=== PATIENT | female | born 1935 | race Caucasian/White ===

== ENCOUNTER 2016-10-03 21:47 | Inpatient (IN) | payer MEDICARE ==
--- NOTE | 2016-10-03 22:36 | ER Document Report ---
ED General - General Chief Complaint: Leg Pain Stated Complaint: LEG PAIN Notes: Patient is a 81-year-old female presents with complaint of having pain in her right leg and behind her right knee. Patient says the pain started today and gradually worsened throughout the day. She is on a slight pain in her left leg. Almost all her pain is in her right leg. She then started become confused and altered at home. She was sweating and diaphoretic and looked unwell according to the daughter. Ambulance was called. When animals arrived she had a temp of 101.9. The daughter had given her Tylenol proximal main hour prior. She was also hypoxic upon their arrival. Patient currently is feeling improved and more awake and alert. She still has a pain behind her right leg. She has no previous history of DVT. No history of PE. She's had no recent cough or congestion. No recent dysuria. No redness or swelling to her extremities. No social or back pain. No abdominal pain. She does have a previous history of ovarian cancer. This was removed with surgery in the . 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 She did have a hernia surgery in 2016. She does have a history of rheumatoid arthritis and is on plaquenil and on prednisone. - Related Data Allergies/Adverse Reactions: cephalexin Allergy (Verified 10/03/16 22:23) fenofibrate [From Tricor] Allergy (Verified 10/03/16 22:23) indomethacin [From Indocin] Allergy (Verified 10/03/16 22:23) Vomiting oxycodone [From Percocet] Allergy (Verified 10/03/16 22:23) Hallucinations Penicillins Allergy (Verified 10/03/16 22:23) simvastatin [From Zocor] Allergy (Verified 10/03/16 22:23) tramadol [From Ultram] Allergy (Verified 10/03/16 22:23) Vomiting acetaminophen [From Percocet] Adverse Reaction (Verified 10/04/16 06:25) Hallucinations Home Medications: Current Home Medications Allopurinol [Zyloprim 300 mg Tablet] 300 mg PO DAILY 10/04/16 [History] Aspirin [Aspirin 81 mg Chewable Tablet] 81 mg PO DAILY 10/04/16 [History] Cholecalciferol (Vitamin D3) [Vitamin D3 1000 unit Chewable Tablet] 1 tab PO DAILY 10/04/16 [History] Gemfibrozil [Lopid 600 mg Tablet] 600 mg PO BID 10/04/16 [History] Hydroxychloroquine Sulfate [Plaquenil 200 mg Tablet] 200 mg PO DAILY 10/04/16 [ History] Magnesium Oxide [Mag-Ox 400 mg Tablet] 400 mg PO DAILY 10/04/16 [History] Omeprazole 20 mg PO DAILY 10/04/16 [History] Prednisone 10 mg PO DAILY 10/04/16 [History] Pregabalin [Lyrica 75 mg Capsule] 75 mg PO BID 10/04/16 [History] Past Medical History - Social History Smoking Status: Never Smoker Frequency of alcohol use: None Drug Abuse: None Family History: Reviewed & Not Pertinent - Past Medical History Cardiac Medical History: Reports: Hx Hypertension Musculoskeltal Medical History: Reports Hx Arthritis Past Surgical History: Reports: Hx Hysterectomy, Hx Tonsillectomy Review of Systems - Review of Systems Notes: My Normal Review Basic REVIEW OF SYSTEMS: CONSTITUTIONAL : Fever EENT: Denies eye, ear, throat, or mouth pain or symptoms. Denies nasal or sinus congestion. CARDIOVASCULAR: Denies chest pain. RESPIRATORY: Denies cough, cold, or chest congestion. Denies shortness of breath, difficulty breathing, or wheezing. GASTROINTESTINAL: Denies abdominal pain. Denies nausea, vomiting, or diarrhea. Denies constipation. Last BM: GENITOURINARY: Denies difficulty urinating, painful urination, burning, frequency, or blood in urine. MUSCULOSKELETAL: Right leg pain SKIN: Denies rash or skin lesions. NEUROLOGICAL: Denies altered mental status or loss of consciousness. Denies headache. Denies weakness or paralysis or loss of use of either side. Denies problems with gait or speech. Denies sensory or motor loss. ALL OTHER SYSTEMS REVIEWED AND NEGATIVE. Physical Exam - Vital signs Vitals: Temp Pulse Resp BP Pulse Ox 99.4 F 103 H 18 153/90 H 98 10/03/16 21:58 10/03/16 21:58 10/03/16 21:58 10/03/16 21:58 10/03/16 21:58 - Notes Notes: General Appearance: Well nourished, alert, cooperative, no acute distress, no obvious discomfort. Vitals: reviewed, See vital signs table. Head: no swelling or tenderness to the head Eyes: PERRL, EOMI, Conjuctiva clear Mouth: No decreasd moisture Throat: No tonsillar inflammation, No airway obstruction, No lymphadenopathy Neck: Supple, no neck tenderness, No thyromegaly Lungs: No wheezing, No rales, No rhonci, No accessory muscle use, good air exchange bilaterally. Heart: Normal rate, Regular rythm, No murmur, no rub Abdomen: Normal BS, soft, No rigidity, No abdominal tenderness, No guarding, no rebound, no abdominal masses, no organomegaly. Scars on abdomen. Extremities: strength 5/5 in all extremities, good pulses in all extremities, pinpoint area of tenderness behind the right knee. No redness or swelling. Remainder of other extremities are nontender to palpation. Patient has good range of motion of her knee without any stiffness., no edema. Skin: warm, dry, appropriate color, no rash Neuro: speech clear, oriented x 3, normal affect, responds appropriately to questions. Course - Vital Signs Vital signs: Temp Pulse Resp BP Pulse Ox 98.9 F 78 18 125/53 L 97 10/04/16 05:20 10/04/16 05:20 10/04/16 05:20 10/04/16 05:20 10/04/16 05:20 - Laboratory Result Diagrams: 10/04/16 01:18 10/04/16 01:18 Laboratory results interpreted by me: 10/03/16 10/04/16 10/04/16 22:50 01:18 01:18 WBC 13.1 H RBC 3.30 L Hgb 10.7 L Hct 32.3 L MCV 98 H RDW 16.6 H Plt Count 131 L Lymphocytes % (Manual) 7 L Monocytes % (Manual) 17 H Abs Neuts (Manual) 9.7 H Abs Monocytes (Manual) 2.2 H D-Dimer Chloride 109 H Carbon Dioxide 21 L BUN 32 H Creatinine 1.58 H Est GFR ( Amer) 38 L Est GFR (Non-Af Amer) 31 L Glucose 116 H Urine Protein 30 H Urine Blood SMALL H Ur Leukocyte Esterase LARGE H 10/04/16 01:18 WBC RBC Hgb Hct MCV RDW Plt Count Lymphocytes % (Manual) Monocytes % (Manual) Abs Neuts (Manual) Abs Monocytes (Manual) D-Dimer 0.58 H Chloride Carbon Dioxide BUN Creatinine Est GFR ( Amer) Est GFR (Non-Af Amer) Glucose Urine Protein Urine Blood Ur Leukocyte Esterase - Transfer of Care Notes: 10/04/16 06:31 I did speak to hospice but admission for the patient due to fever, urinary tract infection, and having 1 kidney. He did recommend a CT scan. CT scan shows no evidence of kidney stone. We will continue with plan for admission. I did tell him that the leg pain. I do not think the leg pain is anything do with fever. This no redness or swelling to leg. This no stiffness to the joint. This could represent a DVT but thinks probably less likely. We do not have venous duplex here tonight she will have to have the ultrasound during the daytime when they are here. This could be resultant of her rheumatoid or history of gout. Currently patient clinically still looks like she feels unwell. She is afebrile at this time. I've started her on antibiotics. She will be admitted. Dictation of this chart was performed using voice recognition software; therefore, there may be some unintended grammatical errors. Discharge - Discharge Clinical Impression: Leg pain, right UTI (urinary tract infection) Qualifiers: Urinary tract infection type: site unspecified Hematuria presence: without hematuria Qualified Code(s): N39.0 - Urinary tract infection, site not specified Fever Qualifiers: Fever type: unspecified Qualified Code(s): R50.9 - Fever, unspecified Disposition: ADMITTED OBSERVATION Admitting Provider: Hospitalist Unit Admitted: Telemetry
[2016-10-03 23:24] LABS: APPEARANCE,URINE CLOUDY; BILIRUBIN,URINE NEGATIVE (NEGATIVE); GLUCOSE, URINE NEGATIVE (NEGATIVE); KETONES,URINE NEGATIVE (NEGATIVE); LEUKOCYTE ESTERASE,URINE LARGE (NEGATIVE); NITRITE,URINE NEGATIVE (NEGATIVE); PROTEIN,URINE 30 mg/dL (NEGATIVE); URINE SPECIFIC GRAVITY 1.011; UROBILINOGEN,URINE NEGATIVE mg/dL (<2.0)
[2016-10-03] MEDS ORDERED: CIPROFLOXACIN 400 MG/D5W RTU 200 ML IV ONE (23:36)
[2016-10-03] MEDS ORDERED: MORPHINE SULFATE 10 MG/ML INJ IV ONE (23:41)
[2016-10-03] MEDS ORDERED: NORMAL SALINE 1000 ML 500 ML IV ONE (23:51)
[2016-10-03] MEDS ORDERED: ACETAMINOPHEN 325 MG TABLET PO ONE (23:51)
[2016-10-04 01:33] LABS: HEMATOCRIT 32.3 % (36.0-47.0); HEMOGLOBIN 10.7 g/dL (12.0-15.5); HGB HCT DIFFERENCE -0.2; MEAN CORPUSCULAR HEMOGLOBIN 32.2 pg (27.0-33.4); MEAN CORPUSCULAR VOLUME 98 fl (80-97); RED CELL DISTRIBUTION WIDTH 16.6 % (11.5-14.0); WHITE BLOOD COUNT 13.1 10^3/uL (4.0-10.5)
[2016-10-04 01:52] LABS: ALANINE AMINOTRANSFERASE 23 U/L (9-52); ALKALINE PHOSPHATASE 66 U/L (38-126); ANION GAP 14 (5-19); ASPARTATE AMINO TRANSFERASE 18 U/L (14-36); BILIRUBIN,TOTAL 0.6 mg/dL (0.2-1.3); BLOOD UREA NITROGEN 32 mg/dL (7-20); CALCIUM 9.3 mg/dL (8.4-10.2); CARBON DIOXIDE 21 mmol/L (22-30); CHLORIDE 109 mmol/L (98-107); CREATININE RESULT 1.58 mg/dL (0.52-1.25); GLUCOSE 116 mg/dL (75-110); POTASSIUM 3.7 mmol/L (3.6-5.0); SODIUM 143.5 mmol/L (137-145); TOTAL PROTEIN 7.3 g/dL (6.3-8.2)
[2016-10-04 01:56] LABS: BASOPHILS % (MANUAL) 0 % (0-2); EOSINOPHILS % (MANUAL) 0 % (0-6); LYMPHOCYTES % (MANUAL) 7 % (13-45); TOTAL CELLS COUNTED 100
[2016-10-04 01:59] LABS: ANISOCYTOSIS 1+
[2016-10-04] MEDS ORDERED: IPRATROPIUM/ALBUTEROL 0.5-2.5 MG/3 ML AMPUL NEB PRN (03:47)
[2016-10-04] MEDS ORDERED: MAGNESIUM HYDROXIDE SUSP 30 ML UDCUP PO PRN (03:47)
[2016-10-04] MEDS ORDERED: ONDANSETRON HCL INJ/PF 4 MG/2 ML SDV IV PRN (03:47)
[2016-10-04] MEDS ORDERED: LACTULOSE SYRUP 20 GM/30 ML UDCUP PO ONE (03:56)
[2016-10-04] MEDS ORDERED: NORMAL SALINE 1000 ML 1,000 ML IV SCH (04:00)
[2016-10-04] MEDS: HEPARIN SOD (PORCINE) 5,000 UNIT/ML 1 ML SYRINGE SUBCUT SCH ×3 (05:50→21:31)
--- NOTE | 2016-10-04 06:02 | PDOC H&P ---
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 Who had been her usual state of health until approximately 6 hours prior to presentation complaining of right posterior knee pain aggravated by flexion and weightbearing, without clear history of trauma or injury, no shortness of breath or chest pain. She developed pain preventing her from walking, subjective fever and confusion and is brought to the emergency room for evaluation. She's found to have mild leukocytosis and a UA suggestive of urinary tract infection versus colonization and a painful posterior right knee without erythema, evidence of edema or effusion to the joint. She started on empiric antibiotics referred to the hospitalist for admission. Past Medical History Cardiac Medical History: Reports: Hypertension Renal/ Medical History: Reports: Other - History of right-sided renal artery stenosis failing stent remotely GI Medical History: Reports: Gastroesophageal Reflux Disease Denies: Cirrhosis, Diverticulitis, Peptic Ulcer Disease, Ulcerative Colitis Musculoskeltal Medical History: Reports: Arthritis, Gout, Other - Seronegative RA Skin Medical History: Reports: None Psychiatric Medical History: Reports: None Hematology: Reports: None Infectious Medical History: Reports: None Past Surgical History Past Surgical History: Reports: Hysterectomy, Tonsillectomy Social History Information Source: Patient, Relative Lives with: Family Smoking Status: Never Smoker Frequency of Alcohol Use: None Hx Recreational Drug Use: No Drugs: None - Advance Directive Resuscitation Status: Full Code Family History Family History: Other - Osteoporosis Parental Family History Reviewed: Yes Children Family History Reviewed: Yes Sibling(s) Family History Reviewed.: Yes Medication/Allergy Home Medications: Allopurinol [Zyloprim 300 mg Tablet] 300 mg PO DAILY 10/04/16 Aspirin [Aspirin 81 mg Chewable Tablet] 81 mg PO DAILY 10/04/16 Cholecalciferol (Vitamin D3) [Vitamin D3 1000 unit Chewable Tablet] 1 tab PO DAILY 10/04/16 Gemfibrozil [Lopid 600 mg Tablet] 600 mg PO BID 10/04/16 Hydroxychloroquine Sulfate [Plaquenil 200 mg Tablet] 200 mg PO DAILY 10/04/16 Magnesium Oxide [Mag-Ox 400 mg Tablet] 400 mg PO DAILY 10/04/16 Omeprazole 20 mg PO DAILY 10/04/16 Prednisone 10 mg PO DAILY 10/04/16 Pregabalin [Lyrica 75 mg Capsule] 75 mg PO BID 10/04/16 Allergies/Adverse Reactions: acetaminophen [From Percocet] Allergy (Verified 10/03/16 22:23) Hallucinations cephalexin Allergy (Verified 10/03/16 22:23) fenofibrate [From Tricor] Allergy (Verified 10/03/16 22:23) indomethacin [From Indocin] Allergy (Verified 10/03/16 22:23) Vomiting oxycodone [From Percocet] Allergy (Verified 10/03/16 22:23) Hallucinations Penicillins Allergy (Verified 10/03/16 22:23) simvastatin [From Zocor] Allergy (Verified 10/03/16 22:23) tramadol [From Ultram] Allergy (Verified 10/03/16 22:23) Vomiting Review of Systems Constitutional: PRESENT: fatigue. ABSENT: chills, fever(s), headache(s), weight gain, weight loss Eyes: ABSENT: visual disturbances Ears: ABSENT: hearing changes Cardiovascular: ABSENT: chest pain, dyspnea on exertion, edema, orthropnea, palpitations Respiratory: ABSENT: cough, hemoptysis Gastrointestinal: PRESENT: constipation. ABSENT: abdominal pain, diarrhea, hematemesis, hematochezia, nausea, vomiting Genitourinary: ABSENT: dysuria, hematuria Musculoskeletal: ABSENT: joint swelling Integumentary: ABSENT: rash, wounds Neurological: ABSENT: abnormal gait, abnormal speech, confusion, dizziness, focal weakness, syncope Psychiatric: ABSENT: anxiety, depression, homidical ideation, suicidal ideation Endocrine: ABSENT: cold intolerance, heat intolerance, polydipsia, polyuria Hematologic/Lymphatic: ABSENT: easy bleeding, easy bruising Physical Exam Vital Signs: Temp Pulse Resp BP Pulse Ox 98.8 F 103 H 19 126/66 H 99 10/04/16 04:51 10/03/16 21:58 10/04/16 04:01 10/04/16 04:01 10/04/16 04:01 General appearance: PRESENT: cooperative, mild distress, obese Head exam: PRESENT: atraumatic, normocephalic Eye exam: PRESENT: conjunctiva pink, EOMI, PERRLA. ABSENT: scleral icterus Ear exam: PRESENT: normal external ear exam Mouth exam: PRESENT: moist, tongue midline Neck exam: ABSENT: carotid bruit, JVD, lymphadenopathy, thyromegaly Respiratory exam: PRESENT: clear to auscultation bailey. ABSENT: rales, rhonchi, wheezes Cardiovascular exam: PRESENT: RRR. ABSENT: diastolic murmur, rubs, systolic murmur Pulses: PRESENT: normal dorsalis pedis pul Vascular exam: PRESENT: normal capillary refill GI/Abdominal exam: PRESENT: normal bowel sounds, soft. ABSENT: distended, guarding, mass, organolmegaly, rebound, tenderness Rectal exam: PRESENT: deferred Extremities exam: PRESENT: full ROM, tenderness. ABSENT: calf tenderness, clubbing, pedal edema Musculoskeletal exam: PRESENT: other - Right posterior knee with pain flexion and palpation. ABSENT: full ROM Neurological exam: PRESENT: alert, awake, oriented to person, oriented to place , oriented to time, oriented to situation, CN II-XII grossly intact. ABSENT: motor sensory deficit Psychiatric exam: PRESENT: appropriate affect, normal mood. ABSENT: homicidal ideation, suicidal ideation Skin exam: PRESENT: dry, intact, warm. ABSENT: cyanosis, rash Results Impressions: Chest X-Ray 10/03/16 22:13 IMPRESSION: Mild subsegmental atelectasis in the lung bases. Small left pleural effusion versus pleural scarring. Lung Scan-VQ NM 10/03/16 23:11 IMPRESSION: NORMAL PERFUSION LUNG SCAN. Limited or Localized CT 10/04/16 02:17 IMPRESSION: No acute findings of the renal system. Severe right renal atrophy. Extensive intra-abdominal calcifications and/or residual contrast suggestive of old granulomatous/ infectious disease. Possible 2.9 cm abdominal wall seroma. Assessment & Plan - Diagnosis (1) Posterior right knee pain Is this a current diagnosis for this admission?: YesPlan: As she is Homans positive I'll evaluate for DVT with Doppler ultrasound however I suspect avascular necrosis given history of prednisone and lack of joint effusion or history of cyst. Otherwise symptomatically management and orthopedic consultation (2) Fever Qualifiers: Fever type: unspecified Qualified Code(s): R50.9 - Fever, unspecified Is this a current diagnosis for this admission?: YesPlan: Possible urinary tract infection versus avascular necrosis to the right knee she receive empiric antibiotics blood and urine culture reevaluation of CBC and symptomatically management (3) UTI (urinary tract infection) Qualifiers: Urinary tract infection type: site unspecified Hematuria presence: without hematuria Qualified Code(s): N39.0 - Urinary tract infection, site not specified Is this a current diagnosis for this admission?: YesPlan: Blood and urine culture pending follow-up CBC and empiric antibiotics - Time Time Spent: 30 to 50 Minutes
[2016-10-04] MEDS: ACETAMINOPHEN 325 MG TABLET PO PRN ×2 (06:37→18:50)
[2016-10-04 07:29] LABS: HEMATOCRIT 30.8 % (36.0-47.0); HEMOGLOBIN 10.1 g/dL (12.0-15.5); HGB HCT DIFFERENCE -0.5; MEAN CORPUSCULAR HEMOGLOBIN 32.2 pg (27.0-33.4); MEAN CORPUSCULAR HGB CONC 32.8 g/dL (32.0-36.0); MEAN CORPUSCULAR VOLUME 98 fl (80-97); RED BLOOD COUNT 3.14 10^6/uL (3.72-5.28); RED CELL DISTRIBUTION WIDTH 16.7 % (11.5-14.0); WHITE BLOOD COUNT 12.6 10^3/uL (4.0-10.5)
[2016-10-04 07:37] LABS: ALANINE AMINOTRANSFERASE 30 U/L (9-52); ALBUMIN 3.9 g/dL (3.5-5.0); ALKALINE PHOSPHATASE 62 U/L (38-126); ANION GAP 14 (5-19); ASPARTATE AMINO TRANSFERASE 17 U/L (14-36); BILIRUBIN,TOTAL 0.8 mg/dL (0.2-1.3); BLOOD UREA NITROGEN 31 mg/dL (7-20); CALCIUM 9.2 mg/dL (8.4-10.2); CARBON DIOXIDE 20 mmol/L (22-30); CHLORIDE 111 mmol/L (98-107); CREATININE RESULT 1.44 mg/dL (0.52-1.25); GLUCOSE 89 mg/dL (75-110); POTASSIUM 3.8 mmol/L (3.6-5.0); SODIUM 144.6 mmol/L (137-145); TOTAL PROTEIN 6.8 g/dL (6.3-8.2)
[2016-10-04 08:01] LABS: BASOPHILS % (MANUAL) 0 % (0-2); EOSINOPHILS % (MANUAL) 1 % (0-6); LYMPHOCYTES % (MANUAL) 5 % (13-45); POLYCHROMASIA SLIGHT; TOTAL CELLS COUNTED 100; TOXIC GRANULATION SLIGHT
[2016-10-04 08:02] LABS: ANISOCYTOSIS SLIGHT
[2016-10-04] MEDS: LEVOFLOXACIN 750 MG/D5W RTU 750 MG/150 ML RTUPB IV SCH (09:23)
[2016-10-04] MEDS: DOCUSATE SODIUM 100 MG CAPSULE PO SCH ×2 (09:24→18:31)
[2016-10-04] MEDS ORDERED: KETOROLAC TROMETHAMINE INJ/PF 30 MG/1 ML SDV IV ONE (09:43)
[2016-10-04] MEDS ORDERED: BISACODYL 10 MG SUPP.RECT PR ONE (09:43)
[2016-10-04] MEDS: POLYETHYLENE GLYCOL 3350 POWDER 17 GM/1 PACKET PO SCH (09:58)
--- NOTE | 2016-10-04 12:42 | XCELERA REPORT ---
[address] [address] Lower Extremity Venous Evaluation Name: JUDY JAMES Age: 81 yrs Gender: Female : 1935 Patient Status: Inpatient Patient Location: [id number] Study Date: 10/04/2016 09:00 AM Procedure: Color flow and duplex imaging of the veins of the right lower extremity as well as the left Common Femoral vein. Reason For Study: Right leg homans positive PAIN Ordering Physician: JAYY STOREY Performed By: Deniz Capellan Right Sided Venous Evaluation Normal vessel filling wall to wall, compression and augmentation as well as Colour flow down to the infrageniculate veins. Left Sided Venous Evaluation The left common femoral vein is fully compressible. Spontaneous and phasic flow is present in the left common femoral vein. Interpretation Summary No duplex evidence of DVT or obstruction in the right lower extremity nor in the left Common Femoral vein. : JAYY STOREY [place]
[2016-10-04] MEDS ORDERED: DOCUSATE SODIUM 100 MG CAPSULE PO PRN (15:18)
--- NOTE | 2016-10-04 15:26 | PDOC PROGRESS REPORT ---
Subjective Progress Note for:: 10/04/16 Subjective:: Patient is seen on morning rounds. She is resting comfortably in bed. Her daughter and son are at bedside. She just returned from having her right lower extremity venous duplex. She continues to complain of pain in the right posterior knee, and is unable to fully bear weight on that leg. She denies any trauma or injury. Daughter states she does have a history of gouty arthritis. Her symptoms came on very suddenly. She is also having pain in the dorsum of both feet. She does presently appear to have a urinary tract infection as well , which could explain her fever. She also complains of being constipated for the last several days, which is a new problem for her. She is taking MiraLAX and Colace at home with no results. She was given lactulose this morning with no results as of yet. She states her appetite is poor because of this. She denies any shortness of breath, dyspnea or cough. She denies any headache or dizziness. Physical Exam Vital Signs: Temp Pulse Resp BP Pulse Ox 98.3 F 81 16 125/61 95 10/04/16 11:29 10/04/16 11:29 10/04/16 11:29 10/04/16 11:29 10/04/16 11:29 Intake & Output 10/03/16 10/04/16 10/05/16 06:59 06:59 06:59 Intake Total 1200 500 Output Total 450 Balance 1200 50 Weight 81 kg General appearance: PRESENT: no acute distress, obese, well-developed, well- nourished Head exam: PRESENT: atraumatic, normocephalic Eye exam: PRESENT: conjunctiva pink, EOMI, PERRLA. ABSENT: scleral icterus Ear exam: PRESENT: normal external ear exam Mouth exam: PRESENT: dry mucosa Neck exam: ABSENT: carotid bruit, JVD, lymphadenopathy, thyromegaly Respiratory exam: PRESENT: clear to auscultation bailey. ABSENT: rales, rhonchi, wheezes Cardiovascular exam: PRESENT: RRR. ABSENT: diastolic murmur, rubs, systolic murmur Pulses: PRESENT: normal dorsalis pedis pul Vascular exam: PRESENT: normal capillary refill GI/Abdominal exam: PRESENT: normal bowel sounds, soft. ABSENT: distended, guarding, mass, organolmegaly, rebound, tenderness Rectal exam: PRESENT: deferred Extremities exam: PRESENT: full ROM, tenderness - right posterior knee. ABSENT : calf tenderness, clubbing, pedal edema Neurological exam: PRESENT: alert, awake, oriented to person, oriented to place , oriented to time, oriented to situation, CN II-XII grossly intact. ABSENT: motor sensory deficit Psychiatric exam: PRESENT: appropriate affect, normal mood. ABSENT: homicidal ideation, suicidal ideation Skin exam: PRESENT: dry, intact, warm. ABSENT: cyanosis, rash Results Laboratory Results: 10/04/16 06:19 10/04/16 06:19 10/04/16 10/04/16 06:19 06:19 WBC 12.6 H RBC 3.14 L Hgb 10.1 L Hct 30.8 L MCV 98 H MCH 32.2 MCHC 32.8 RDW 16.7 H Plt Count 120 L Seg Neutrophils % Not Reportable Lymphocytes % Not Reportable Monocytes % Not Reportable Eosinophils % Not Reportable Basophils % Not Reportable Absolute Neutrophils Not Reportable Absolute Lymphocytes Not Reportable Absolute Monocytes Not Reportable Absolute Eosinophils Not Reportable Absolute Basophils Not Reportable Sodium 144.6 Potassium 3.8 Chloride 111 H Carbon Dioxide 20 L Anion Gap 14 BUN 31 H Creatinine 1.44 H Est GFR ( Amer) 42 L Est GFR (Non-Af Amer) 35 L Glucose 89 Calcium 9.2 Total Bilirubin 0.8 AST 17 ALT 30 Alkaline Phosphatase 62 Total Protein 6.8 Albumin 3.9 Impressions: Chest X-Ray 10/03/16 22:13 IMPRESSION: Mild subsegmental atelectasis in the lung bases. Small left pleural effusion versus pleural scarring. Lung Scan-VQ NM 10/03/16 23:11 IMPRESSION: NORMAL PERFUSION LUNG SCAN. Knee X-Ray 10/04/16 00:00 IMPRESSION: Osteoarthritic changes in the medial compartment and patellofemoral compartment. Chondrocalcinosis. Limited or Localized CT 10/04/16 02:17 IMPRESSION: No acute findings of the renal system. Severe right renal atrophy. Extensive intra-abdominal calcifications and/or residual contrast suggestive of old granulomatous/ infectious disease. Possible 2.9 cm abdominal wall seroma. Assessment & Plan - Diagnosis (1) Fever Qualifiers: Fever type: unspecified Qualified Code(s): R50.9 - Fever, unspecified Is this a current diagnosis for this admission?: YesPlan: 1 urine cultures are pending. Urinalysis shows a large amount of leukocytes and moderate amount of blood most likely from a UTI. She's been treated with IV Levaquin at the present time. (2) UTI (urinary tract infection) Qualifiers: Urinary tract infection type: site unspecified Hematuria presence: without hematuria Qualified Code(s): N39.0 - Urinary tract infection, site not specified Is this a current diagnosis for this admission?: YesPlan: She's been treated with IV Levaquin urine and blood cultures are pending. (3) Posterior right knee pain Is this a current diagnosis for this admission?: YesPlan: Venous duplex is negative of the right lower extremity. She continues to have significant pain without explanation. Obtain MRI of the lower extremity check her uric acid. (4) Leg pain, right Is this a current diagnosis for this admission?: YesPlan: Patient was given 1 dose of IV Toradol. (5) JOAQUÍN (acute kidney injury) Is this a current diagnosis for this admission?: YesPlan: Most likely prerenal due to infection and dehydration. (6) Dyslipidemia Is this a current diagnosis for this admission?: YesPlan: Continue lopid (7) Rheumatoid arthritis Qualifiers: Rheumatoid arthritis location: multiple sites Is this a current diagnosis for this admission?: YesPlan: Continue home medications. - Time Time Spent with patient: 25-34 minutes Critical Time spent with patient: 15-24 minutes Medications reviewed and adjusted accordingly: Yes Anticipated discharge: Home
[2016-10-04] MEDS ORDERED: ALBUTEROL SULFATE HFA (90 MCG/PUFF) 200 PUFF/8.5 GM MDI IH SCH (15:30)
[2016-10-04] MEDS: ALBUTEROL SULFATE HFA (90 MCG/PUFF) 200 PUFF/8.5 GM MDI IH SCH (18:30)
[2016-10-04] MEDS: GEMFIBROZIL 600 MG TABLET PO SCH (21:31)
[2016-10-04] MEDS: PREGABALIN 75 MG CAPSULE PO SCH (21:32)
[2016-10-05] MEDS: ALBUTEROL SULFATE HFA (90 MCG/PUFF) 200 PUFF/8.5 GM MDI IH SCH ×5 (00:46→23:42)
[2016-10-05 06:35] LABS: HEMATOCRIT 29.7 % (36.0-47.0); HEMOGLOBIN 9.9 g/dL (12.0-15.5); MEAN CORPUSCULAR HEMOGLOBIN 32.6 pg (27.0-33.4); MEAN CORPUSCULAR HGB CONC 33.3 g/dL (32.0-36.0); MEAN CORPUSCULAR VOLUME 98 fl (80-97); RED BLOOD COUNT 3.04 10^6/uL (3.72-5.28); RED CELL DISTRIBUTION WIDTH 16.3 % (11.5-14.0); WHITE BLOOD COUNT 10.4 10^3/uL (4.0-10.5)
[2016-10-05 06:47] LABS: ALANINE AMINOTRANSFERASE 29 U/L (9-52); ALBUMIN 3.3 g/dL (3.5-5.0); ALKALINE PHOSPHATASE 52 U/L (38-126); ANION GAP 11 (5-19); ASPARTATE AMINO TRANSFERASE 21 U/L (14-36); BILIRUBIN,TOTAL 0.8 mg/dL (0.2-1.3); BLOOD UREA NITROGEN 18 mg/dL (7-20); CALCIUM 8.5 mg/dL (8.4-10.2); CARBON DIOXIDE 18 mmol/L (22-30); CHLORIDE 113 mmol/L (98-107); CREATININE RESULT 1.29 mg/dL (0.52-1.25); GLUCOSE 75 mg/dL (75-110); POTASSIUM 3.7 mmol/L (3.6-5.0); SODIUM 142.4 mmol/L (137-145); TOTAL PROTEIN 6.5 g/dL (6.3-8.2); URIC ACID 4.8 mg/dL (2.5-7.5)
[2016-10-05] MEDS: HEPARIN SOD (PORCINE) 5,000 UNIT/ML 1 ML SYRINGE SUBCUT SCH ×3 (06:51→22:13)
[2016-10-05 06:59] LABS: BASOPHILS % (MANUAL) 0 % (0-2); EOSINOPHILS % (MANUAL) 0 % (0-6); LYMPHOCYTES % (MANUAL) 6 % (13-45); TOTAL CELLS COUNTED 100
[2016-10-05 07:04] LABS: ANISOCYTOSIS 1+; POIKILOCYTOSIS 1+
[2016-10-05 07:05] LABS: OVALOCYTES 1+
[2016-10-05] MEDS: LEVOFLOXACIN 750 MG/D5W RTU 750 MG/150 ML RTUPB IV SCH (09:50)
[2016-10-05] MEDS: MAGNESIUM OXIDE 400 MG TABLET PO SCH (09:51)
[2016-10-05] MEDS: GEMFIBROZIL 600 MG TABLET PO SCH ×2 (09:51→22:13)
[2016-10-05] MEDS: DOCUSATE SODIUM 100 MG CAPSULE PO SCH ×2 (09:51→18:09)
[2016-10-05] MEDS: ALLOPURINOL 300 MG TABLET PO SCH (09:52)
[2016-10-05] MEDS: PREGABALIN 75 MG CAPSULE PO SCH ×2 (09:52→22:13)
[2016-10-05] MEDS: PREDNISONE 10 MG TABLET PO SCH (09:52)
[2016-10-05] MEDS: HYDROXYCHLOROQUINE SULFATE 200 MG TABLET PO SCH (09:53)
[2016-10-05] MEDS: ASPIRIN 81 MG TABLET, ENT COATED PO SCH (09:57)
[2016-10-05] MEDS: POLYETHYLENE GLYCOL 3350 POWDER 17 GM/1 PACKET PO SCH (10:06)
[2016-10-05] MEDS ORDERED: LIDOCAINE 5% (700 MG) TRANSDERMAL ADH..PATCH TP SCH (12:19)
[2016-10-05] MEDS: METHYLPREDNISOLONE INJ 40 MG/1 ML SDV IV SCH ×2 (14:22→22:25)
[2016-10-05] MEDS: ACETAMINOPHEN 325 MG TABLET PO PRN ×2 (14:24→22:24)
--- NOTE | 2016-10-05 15:09 | PDOC CONSULTATION ---
History of Present Illness Admission Date/PCP: 10/04/16 03:47 History of Present Illness: JUDY JAMES is a 81 year old female with a past medical history of seronegative rheumatoid arthritis on Plaquenil and daily prednisone, single functioning kidney secondary to renal artery stenosis, gout, dyslipidemia, neuropathy and GERD. On 10/03/16 presented to the emergency room with complaints of right knee pain. She states she had difficulty ambulating and bearing weight on her knee. Denies specific injury. Denied fever chills or sweats. She does have long- standing history of polyarthralgias along with neuropathy which is treated as per above. Does note chronic numbness but no new onset of numbness. States since her admission the pain has notably improved is not a normal level. Currently pain 5/10. Past Medical History Cardiac Medical History: Reports: Hypertension Renal/ Medical History: Reports: Other - History of right-sided renal artery stenosis failing stent remotely GI Medical History: Reports: Gastroesophageal Reflux Disease Denies: Cirrhosis, Diverticulitis, Peptic Ulcer Disease, Ulcerative Colitis Musculoskeltal Medical History: Reports: Arthritis, Gout, Other - Seronegative RA Skin Medical History: Reports: None Psychiatric Medical History: Reports: None Hematology: Reports: None Infectious Medical History: Reports: None Past Surgical History Past Surgical History: Reports: Hysterectomy, Tonsillectomy Social History Lives with: Family Smoking Status: Never Smoker Frequency of Alcohol Use: None Hx Recreational Drug Use: No Drugs: None - Advance Directive Resuscitation Status: Full Code Family History Family History: Reviewed & Not Pertinent Parental Family History Reviewed: No Children Family History Reviewed: No Sibling(s) Family History Reviewed.: No Medication/Allergy Home Medications: Albuterol Sulfate [Proair HFA Inhalation Aerosol 8.5 gm MDI] 1 puff IH Q6H 10/04 Allopurinol [Zyloprim 300 mg Tablet] 300 mg PO DAILY 10/04/16 Aspirin [Ecotrin 81 mg EC Tablet] 81 mg PO DAILY 10/04/16 Cholecalciferol (Vitamin D3) [Vitamin D3] 1,000 unit PO DAILY 10/04/16 Docusate Sodium [Colace 100 mg Capsule] 100 mg PO DAILYP PRN 10/04/16 Gemfibrozil [Lopid 600 mg Tablet] 600 mg PO Q12 10/04/16 Hydroxychloroquine Sulfate [Plaquenil 200 mg Tablet] 200 mg PO DAILY 10/04/16 Magnesium Oxide [Mag-Ox 400 mg Tablet] 400 mg PO DAILY 10/04/16 Omeprazole 20 mg PO DAILY 10/04/16 Prednisone [Deltasone 10 mg Tablet] 10 mg PO DAILY 10/04/16 Pregabalin [Lyrica 75 mg Capsule] 75 mg PO Q12 10/04/16 Vitamin B Complex [Super B Complex] 1 each PO DAILY 10/04/16 Allergies/Adverse Reactions: levofloxacin Allergy (Intermediate, Verified 10/05/16 15:02) Abnormal behavior cephalexin Allergy (Verified 10/05/16 15:02) fenofibrate [From Tricor] Allergy (Verified 10/05/16 15:02) indomethacin [From Indocin] Allergy (Verified 10/05/16 15:02) Vomiting oxycodone [From Percocet] Allergy (Verified 10/05/16 15:02) Hallucinations Penicillins Allergy (Verified 10/05/16 15:02) simvastatin [From Zocor] Allergy (Verified 10/05/16 15:02) tramadol [From Ultram] Allergy (Verified 10/05/16 15:02) Vomiting acetaminophen [From Percocet] Adverse Reaction (Verified 10/05/16 15:02) Hallucinations Review of Systems Constitutional: ABSENT: chills, fever(s), headache(s), weight gain, weight loss Eyes: ABSENT: visual disturbances Ears: ABSENT: hearing changes Cardiovascular: ABSENT: chest pain, dyspnea on exertion, edema, orthropnea, palpitations Respiratory: ABSENT: cough, hemoptysis Gastrointestinal: ABSENT: abdominal pain, constipation, diarrhea, hematemesis, hematochezia, nausea, vomiting Genitourinary: PRESENT: dysuria. ABSENT: hematuria Musculoskeletal: PRESENT: as per HPI Integumentary: ABSENT: rash, wounds Neurological: PRESENT: numbness, paresthesias, weakness. ABSENT: abnormal gait , abnormal speech, confusion, dizziness, focal weakness, syncope Psychiatric: ABSENT: anxiety, depression, homidical ideation, suicidal ideation Endocrine: ABSENT: cold intolerance, heat intolerance, menstrual abnormalities, polydipsia, polyuria Hematologic/Lymphatic: ABSENT: easy bleeding, easy bruising, lymphadenopathy Physical Exam Vital Signs: Temp Pulse Resp BP Pulse Ox 98.9 F 89 18 148/75 H 99 10/05/16 11:13 10/05/16 11:13 10/05/16 11:13 10/05/16 11:13 10/05/16 11:13 Intake & Output 10/04/16 10/05/16 10/06/16 06:59 06:59 06:59 Intake Total 1200 1965 800 Output Total 950 800 Balance 1200 1015 0 Weight 81 kg 81.5 kg General appearance: PRESENT: no acute distress, well-developed, well-nourished Head exam: PRESENT: atraumatic, normocephalic Eye exam: PRESENT: conjunctiva pink, PERRLA. ABSENT: scleral icterus Ear exam: PRESENT: normal external ear exam Mouth exam: PRESENT: moist, tongue midline Neck exam: PRESENT: other - No thyromegaly. ABSENT: carotid bruit, JVD, lymphadenopathy, thyromegaly Respiratory exam: PRESENT: unlabored Cardiovascular exam: PRESENT: RRR. ABSENT: diastolic murmur, rubs, systolic murmur Pulses: PRESENT: normal dorsalis pedis pul, +2 pedal pulses bilateral Vascular exam: PRESENT: normal capillary refill GI/Abdominal exam: PRESENT: soft. ABSENT: distended, guarding, mass, organolmegaly, rebound, tenderness Rectal exam: PRESENT: deferred Musculoskeletal exam: PRESENT: other - Right knee: Mild effusion. Tenderness to palpation posterior medially. No calf tenderness. Pain with terminal flexion. Knee range of motion 0/110. No evidence of erythema. Positive Tona's test to pain. Neurological exam: PRESENT: alert, awake, oriented to person, oriented to place , oriented to time, oriented to situation, CN II-XII grossly intact. ABSENT: motor sensory deficit Psychiatric exam: PRESENT: appropriate affect, normal mood. ABSENT: homicidal ideation, suicidal ideation Skin exam: PRESENT: dry, intact, warm. ABSENT: cyanosis, rash Results Laboratory Results: 10/05/16 06:12 10/05/16 06:12 10/05/16 10/05/16 06:12 06:12 WBC 10.4 RBC 3.04 L Hgb 9.9 L Hct 29.7 L MCV 98 H MCH 32.6 MCHC 33.3 RDW 16.3 H Plt Count 100 L Seg Neutrophils % Not Reportable Lymphocytes % Not Reportable Monocytes % Not Reportable Eosinophils % Not Reportable Basophils % Not Reportable Absolute Neutrophils Not Reportable Absolute Lymphocytes Not Reportable Absolute Monocytes Not Reportable Absolute Eosinophils Not Reportable Absolute Basophils Not Reportable Sodium 142.4 Potassium 3.7 Chloride 113 H Carbon Dioxide 18 L Anion Gap 11 BUN 18 Creatinine 1.29 H Est GFR ( Amer) 48 L Est GFR (Non-Af Amer) 40 L Glucose 75 Uric Acid 4.8 Calcium 8.5 Total Bilirubin 0.8 AST 21 ALT 29 Alkaline Phosphatase 52 Total Protein 6.5 Albumin 3.3 L Impressions: Chest X-Ray 10/03/16 22:13 IMPRESSION: Mild subsegmental atelectasis in the lung bases. Small left pleural effusion versus pleural scarring. Lung Scan-VQ NM 10/03/16 23:11 IMPRESSION: NORMAL PERFUSION LUNG SCAN. Knee X-Ray 10/04/16 00:00 IMPRESSION: Osteoarthritic changes in the medial compartment and patellofemoral compartment. Chondrocalcinosis. Lower Extremity MRI 10/04/16 00:00 IMPRESSION: Moderate joint effusion. Small free edge tear on the posterior horn of the medial meniscus. Ligaments are intact. No fracture. Limited or Localized CT 10/04/16 02:17 IMPRESSION: No acute findings of the renal system. Severe right renal atrophy. Extensive intra-abdominal calcifications and/or residual contrast suggestive of old granulomatous/ infectious disease. Possible 2.9 cm abdominal wall seroma. Status: Image reviewed by me - I have reviewed patient's radiographs and MRI radiographs demonstrate chondrocalcinosis of the medial meniscus MRI demonstrates mild effusion with mild degenerative changes with posterior medial meniscal tear. Assessment & Plan - Diagnosis (1) Right knee meniscal tear Qualifiers: Tear current or old: old Meniscus of knee: medial Meniscus tear of knee type: peripheral Qualified Code(s): M23.203 - Derangement of unspecified medial meniscus due to old tear or injury, right knee Is this a current diagnosis for this admission?: YesPlan: I have reviewed patient's MRI and radiographs which demonstrated medial meniscal tear combined with chondrocalcinosis which may be contributing to patient's symptoms. Unfortunately because of her 1 the kidney she is unable to take NSAIDs and thus she will continue on her plaque were now and redness. Consideration can also be made for corticosteroid injections but in light of her current UTI I have recommended observation for this but in 10 days she should follow-up for possible injection. Patient will begin physical therapy, heat and a knee immobilizer on a as needed basis. Patient will follow up with her local orthopedist 7-10 days upon discharge.
--- NOTE | 2016-10-05 16:40 | PDOC PROGRESS REPORT ---
Subjective Progress Note for:: 10/05/16 Subjective:: Patient is seen on morning rounds. She is resting comfortably in bed. She is complaining of pain in both feet, and right knee. She denies any fevers chills overnight. She denies any nausea, vomiting, or diarrhea. She denies chest pain , shortness breath or dyspnea. Her daughter states she did have one episode of confusion during the night. Which is unusual for her. Physical Exam Vital Signs: Temp Pulse Resp BP Pulse Ox 98.5 F 83 18 135/73 H 96 10/05/16 15:50 10/05/16 15:50 10/05/16 15:50 10/05/16 15:50 10/05/16 15:50 Intake & Output 10/04/16 10/05/16 10/06/16 06:59 06:59 06:59 Intake Total 1200 1965 800 Output Total 950 800 Balance 1200 1015 0 Weight 81 kg 81.5 kg General appearance: PRESENT: no acute distress, obese, well-developed, well- nourished Head exam: PRESENT: atraumatic, normocephalic Eye exam: PRESENT: conjunctiva pink, EOMI, PERRLA. ABSENT: scleral icterus Ear exam: PRESENT: normal external ear exam Mouth exam: PRESENT: moist, tongue midline Neck exam: ABSENT: carotid bruit, JVD, lymphadenopathy, thyromegaly Respiratory exam: PRESENT: clear to auscultation bailey. ABSENT: rales, rhonchi, wheezes Cardiovascular exam: PRESENT: RRR. ABSENT: diastolic murmur, rubs, systolic murmur Pulses: PRESENT: normal dorsalis pedis pul Vascular exam: PRESENT: normal capillary refill Rectal exam: PRESENT: deferred Extremities exam: PRESENT: tenderness - right knee and feet Musculoskeletal exam: PRESENT: normal inspection, tenderness Neurological exam: PRESENT: alert, awake, oriented to person, oriented to place , oriented to time, oriented to situation, CN II-XII grossly intact. ABSENT: motor sensory deficit Psychiatric exam: PRESENT: appropriate affect, normal mood. ABSENT: homicidal ideation, suicidal ideation Skin exam: PRESENT: dry, intact, warm. ABSENT: cyanosis, rash Results Laboratory Results: 10/05/16 06:12 10/05/16 06:12 10/05/16 10/05/16 06:12 06:12 WBC 10.4 RBC 3.04 L Hgb 9.9 L Hct 29.7 L MCV 98 H MCH 32.6 MCHC 33.3 RDW 16.3 H Plt Count 100 L Seg Neutrophils % Not Reportable Lymphocytes % Not Reportable Monocytes % Not Reportable Eosinophils % Not Reportable Basophils % Not Reportable Absolute Neutrophils Not Reportable Absolute Lymphocytes Not Reportable Absolute Monocytes Not Reportable Absolute Eosinophils Not Reportable Absolute Basophils Not Reportable Sodium 142.4 Potassium 3.7 Chloride 113 H Carbon Dioxide 18 L Anion Gap 11 BUN 18 Creatinine 1.29 H Est GFR ( Amer) 48 L Est GFR (Non-Af Amer) 40 L Glucose 75 Uric Acid 4.8 Calcium 8.5 Total Bilirubin 0.8 AST 21 ALT 29 Alkaline Phosphatase 52 Total Protein 6.5 Albumin 3.3 L Impressions: Chest X-Ray 10/03/16 22:13 IMPRESSION: Mild subsegmental atelectasis in the lung bases. Small left pleural effusion versus pleural scarring. Lung Scan-VQ NM 10/03/16 23:11 IMPRESSION: NORMAL PERFUSION LUNG SCAN. Knee X-Ray 10/04/16 00:00 IMPRESSION: Osteoarthritic changes in the medial compartment and patellofemoral compartment. Chondrocalcinosis. Lower Extremity MRI 10/04/16 00:00 IMPRESSION: Moderate joint effusion. Small free edge tear on the posterior horn of the medial meniscus. Ligaments are intact. No fracture. Limited or Localized CT 10/04/16 02:17 IMPRESSION: No acute findings of the renal system. Severe right renal atrophy. Extensive intra-abdominal calcifications and/or residual contrast suggestive of old granulomatous/ infectious disease. Possible 2.9 cm abdominal wall seroma. Assessment & Plan - Diagnosis (1) Fever Qualifiers: Fever type: unspecified Qualified Code(s): R50.9 - Fever, unspecified Is this a current diagnosis for this admission?: YesPlan: On. She has had no fever for last 24 hours. Urine cultures pending. Cultures are negative 2 (2) UTI (urinary tract infection) Qualifiers: Urinary tract infection type: site unspecified Hematuria presence: without hematuria Qualified Code(s): N39.0 - Urinary tract infection, site not specified Is this a current diagnosis for this admission?: YesPlan: She's been treated with IV Levaquin urine and blood cultures are negative. Daughter did call back later and stated her mother became confused when she had Avelox before. We will therefore DC the Levaquin she's had 3 days of IV. Switch her to Macrobid twice a day. (3) Posterior right knee pain Is this a current diagnosis for this admission?: YesPlan: Venous duplex is negative of the right lower extremity. She continues to have significant pain without explanation. MRI shows a small posterior meniscus tear and chronic malacia. Patient is unable to take 90 sets due to only having one kidney and chronic kidney disease stage II. We'll therefore give her 1 shot of steroids. Knee immobilizer, physical therapy referral and follow-up with orthopedic surgery. (4) Leg pain, right Is this a current diagnosis for this admission?: Yes (5) JOAQUÍN (acute kidney injury) Is this a current diagnosis for this admission?: YesPlan: Most likely prerenal due to infection and dehydration. Improved with IV hydration. (6) Dyslipidemia Is this a current diagnosis for this admission?: YesPlan: Continue lopid (7) Rheumatoid arthritis Qualifiers: Rheumatoid arthritis location: multiple sites Is this a current diagnosis for this admission?: YesPlan: Continue home medications. - Time Time Spent with patient: 25-34 minutes Critical Time spent with patient: 15-24 minutes Medications reviewed and adjusted accordingly: Yes Anticipated discharge: Home with Homehealth
--- NOTE | 2016-10-05 16:41 | PDOC PROGRESS REPORT ---
Subjective Progress Note for:: 10/05/16 Subjective:: Patient is seen on morning rounds. She is resting comfortably in bed. Her daughter and son are at bedside. She just returned from having her right lower extremity venous duplex. She continues to complain of pain in the right posterior knee, and is unable to fully bear weight on that leg. She denies any trauma or injury. Daughter states she does have a history of gouty arthritis. Her symptoms came on very suddenly. She is also having pain in the dorsum of both feet. She does presently appear to have a urinary tract infection as well , which could explain her fever. She also complains of being constipated for the last several days, which is a new problem for her. She is taking MiraLAX and Colace at home with no results. She was given lactulose this morning with no results as of yet. She states her appetite is poor because of this. She denies any shortness of breath, dyspnea or cough. She denies any headache or dizziness. Physical Exam Vital Signs: Temp Pulse Resp BP Pulse Ox 98.8 F 88 18 153/80 H 99 10/05/16 07:51 10/05/16 07:51 10/05/16 07:51 10/05/16 07:51 10/05/16 07:51 Intake & Output 10/04/16 10/05/16 10/06/16 06:59 06:59 06:59 Intake Total 1200 1965 Output Total 950 Balance 1200 1015 Weight 81 kg 81.5 kg Results Laboratory Results: 10/05/16 06:12 10/05/16 06:12 10/05/16 10/05/16 06:12 06:12 WBC 10.4 RBC 3.04 L Hgb 9.9 L Hct 29.7 L MCV 98 H MCH 32.6 MCHC 33.3 RDW 16.3 H Plt Count 100 L Seg Neutrophils % Not Reportable Lymphocytes % Not Reportable Monocytes % Not Reportable Eosinophils % Not Reportable Basophils % Not Reportable Absolute Neutrophils Not Reportable Absolute Lymphocytes Not Reportable Absolute Monocytes Not Reportable Absolute Eosinophils Not Reportable Absolute Basophils Not Reportable Sodium 142.4 Potassium 3.7 Chloride 113 H Carbon Dioxide 18 L Anion Gap 11 BUN 18 Creatinine 1.29 H Est GFR ( Amer) 48 L Est GFR (Non-Af Amer) 40 L Glucose 75 Uric Acid 4.8 Calcium 8.5 Total Bilirubin 0.8 AST 21 ALT 29 Alkaline Phosphatase 52 Total Protein 6.5 Albumin 3.3 L Impressions: Chest X-Ray 10/03/16 22:13 IMPRESSION: Mild subsegmental atelectasis in the lung bases. Small left pleural effusion versus pleural scarring. Lung Scan-VQ NM 10/03/16 23:11 IMPRESSION: NORMAL PERFUSION LUNG SCAN. Knee X-Ray 10/04/16 00:00 IMPRESSION: Osteoarthritic changes in the medial compartment and patellofemoral compartment. Chondrocalcinosis. Lower Extremity MRI 10/04/16 00:00 IMPRESSION: Moderate joint effusion. Small free edge tear on the posterior horn of the medial meniscus. Ligaments are intact. No fracture. Limited or Localized CT 10/04/16 02:17 IMPRESSION: No acute findings of the renal system. Severe right renal atrophy. Extensive intra-abdominal calcifications and/or residual contrast suggestive of old granulomatous/ infectious disease. Possible 2.9 cm abdominal wall seroma. Assessment & Plan - Diagnosis (1) Fever Qualifiers: Fever type: unspecified Qualified Code(s): R50.9 - Fever, unspecified Is this a current diagnosis for this admission?: Yes (2) UTI (urinary tract infection) Qualifiers: Urinary tract infection type: site unspecified Hematuria presence: without hematuria Qualified Code(s): N39.0 - Urinary tract infection, site not specified Is this a current diagnosis for this admission?: Yes (3) Posterior right knee pain Is this a current diagnosis for this admission?: Yes (4) Leg pain, right Is this a current diagnosis for this admission?: Yes (5) JOAQUÍN (acute kidney injury) Is this a current diagnosis for this admission?: Yes (6) Dyslipidemia Is this a current diagnosis for this admission?: Yes (7) Rheumatoid arthritis Qualifiers: Rheumatoid arthritis location: multiple sites Is this a current diagnosis for this admission?: Yes
[2016-10-05] MEDS: NITROFURANTOIN MONOHYD/M-CRYST 100 MG CAPSULE PO SCH (18:09)
[2016-10-06] MEDS: ALBUTEROL SULFATE HFA (90 MCG/PUFF) 200 PUFF/8.5 GM MDI IH SCH (06:16)
[2016-10-06] MEDS: METHYLPREDNISOLONE INJ 40 MG/1 ML SDV IV SCH (06:16)
[2016-10-06] MEDS: HEPARIN SOD (PORCINE) 5,000 UNIT/ML 1 ML SYRINGE SUBCUT SCH (06:16)
[2016-10-06 06:25] LABS: HEMATOCRIT 29.9 % (36.0-47.0); HEMOGLOBIN 10.1 g/dL (12.0-15.5); HGB HCT DIFFERENCE 0.4; MEAN CORPUSCULAR HEMOGLOBIN 32.9 pg (27.0-33.4); MEAN CORPUSCULAR HGB CONC 33.9 g/dL (32.0-36.0); MEAN CORPUSCULAR VOLUME 97 fl (80-97); RED BLOOD COUNT 3.08 10^6/uL (3.72-5.28); RED CELL DISTRIBUTION WIDTH 16.1 % (11.5-14.0); WHITE BLOOD COUNT 7.2 10^3/uL (4.0-10.5)
[2016-10-06 06:55] LABS: BAND NEUTROPHILS % (MANUAL) 3 % (3-5); BASOPHILS % (MANUAL) 1 % (0-2); EOSINOPHILS % (MANUAL) 0 % (0-6); LYMPHOCYTES % (MANUAL) 6 % (13-45); TOTAL CELLS COUNTED 100
[2016-10-06 06:58] LABS: ANISOCYTOSIS 1+; OVALOCYTES 1+; TOXIC GRANULATION SLIGHT; TOXIC VACUOLATION PRESENT
[2016-10-06] MEDS: HYDROXYCHLOROQUINE SULFATE 200 MG TABLET PO SCH (09:10)
[2016-10-06] MEDS: ASPIRIN 81 MG TABLET, ENT COATED PO SCH (09:10)
[2016-10-06] MEDS: DOCUSATE SODIUM 100 MG CAPSULE PO SCH (09:10)
[2016-10-06] MEDS: ALLOPURINOL 300 MG TABLET PO SCH (09:10)
[2016-10-06] MEDS: NITROFURANTOIN MONOHYD/M-CRYST 100 MG CAPSULE PO SCH (09:10)
[2016-10-06] MEDS: PREGABALIN 75 MG CAPSULE PO SCH (09:11)
[2016-10-06] MEDS: PREDNISONE 10 MG TABLET PO SCH (09:11)
[2016-10-06] MEDS: GEMFIBROZIL 600 MG TABLET PO SCH (09:11)
[2016-10-06] MEDS: MAGNESIUM OXIDE 400 MG TABLET PO SCH (09:11)
[2016-10-06] MEDS: POLYETHYLENE GLYCOL 3350 POWDER 17 GM/1 PACKET PO SCH (09:12)
[2016-10-06] MEDS ORDERED: LIDOCAINE 5% (700 MG) TRANSDERMAL ADH..PATCH TP SCH (10:00)
[2016-10-06 12:10] VITALS: BP 142/84
--- NOTE | 2016-10-06 13:19 | PDOC DISCHARGE SUMMARY ---
General - Admit/Disc Date/PCP Admission Date/Primary Care Provider: 10/04/16 03:47 Discharge Date: 10/06/16 - Discharge Diagnosis (1) Fever Is this a current diagnosis for this admission?: YesSummary: Resolved (2) UTI (urinary tract infection) Is this a current diagnosis for this admission?: YesSummary: Will continue macrobid for the next 6 days (3) Posterior right knee pain Is this a current diagnosis for this admission?: YesSummary: Patient will has partial medial meniscus tear. She has been seen by orthopedics who recommend nonsurgical management. She will follow up with her orthopedic physician in [place] (4) Leg pain, right Is this a current diagnosis for this admission?: YesSummary: As above (5) JOAQUÍN (acute kidney injury) Is this a current diagnosis for this admission?: YesSummary: Resolved to baseline. Avoid nephrotoxic drugs (6) Dyslipidemia Is this a current diagnosis for this admission?: YesSummary: Continue statin (7) Rheumatoid arthritis Is this a current diagnosis for this admission?: YesSummary: Continue plaquenil or prednisone - Additional Information Resuscitation Status: Full Code Discharge Diet: Regular Discharge Activity: Activity As Tolerated, Balance Activity w/Rest, Keep Legs Elevated, Slowly Increase Activity Home Medications: Albuterol Sulfate [Proair HFA Inhalation Aerosol 8.5 gm MDI] 1 puff IH Q6H 10/04 Allopurinol [Zyloprim 300 mg Tablet] 300 mg PO DAILY 10/04/16 Aspirin [Ecotrin 81 mg EC Tablet] 81 mg PO DAILY 10/04/16 Cholecalciferol (Vitamin D3) [Vitamin D3] 1,000 unit PO DAILY 10/04/16 Docusate Sodium [Colace 100 mg Capsule] 100 mg PO DAILYP PRN 10/04/16 Gemfibrozil [Lopid 600 mg Tablet] 600 mg PO Q12 10/04/16 Hydroxychloroquine Sulfate [Plaquenil 200 mg Tablet] 200 mg PO DAILY 10/04/16 Magnesium Oxide [Mag-Ox 400 mg Tablet] 400 mg PO DAILY 10/04/16 Omeprazole 20 mg PO DAILY 10/04/16 Prednisone [Deltasone 10 mg Tablet] 10 mg PO DAILY 10/04/16 Pregabalin [Lyrica 75 mg Capsule] 75 mg PO Q12 10/04/16 Vitamin B Complex [Super B Complex] 1 each PO DAILY 10/04/16 Acetaminophen [Tylenol 325 mg Tablet] 650 mg PO Q4HP PRN tablet 10/06/16 Lidocaine [Lidoderm 5% (700 mg) Transdermal Patch] 2 patch TP DAILY #60 adh..patch 10/06/16 Nitrofurantoin Monohyd/M-Cryst [Macrobid 100 mg Capsule] 100 mg PO BID #12 capsule 10/06/16 Polyethylene Glycol 3350 [Miralax Powder 17 gm/Packet] 17 gm PO DAILY powd.pack 10/06/16 Walker [Folding Walker] 1 each MC ASDIR PRN #1 each 10/06/16 History of Present Illness Patient complains of: Fevers, weakness and right leg pain History of Present Illness: JUDY JAMES is a 81 year old female with past medical history of rheumatoid arthritis on plaque well and prednisone, 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 She was in her usual state of health until approximately 6 hours prior to her arrival to [facility]'s emergency department. She was in her usual state of health until approximately 6 hours prior to her arrival [facility]'s emergency department on 10/05/[birth year]10/21/2017, with fever, confusion, weakness and severe right knee pain. She had no fall or injury prior to her arrival here. Her daughter states she did take a bath which she usually doesn' t do and had trouble getting out of the tub. She was found to have low-grade fever, mild leukocytosis and urinalysis suggestive of a UTI. She had painful right posterior knee without erythema. She was started on IV antibiotics and referred to the hospitalist service for admission. Hospital Course Hospital Course: Patient was admitted to telemetry floor. She underwent venous duplex of the right lower extremity. There was no clot she underwent MRI of the right lower extremity, and was found to have a posterior partial medial meniscus tear and moderate joint effusion. She had some nausea, and vomiting the first day of hospitalization. This resolved over the next 24 hours. She had some intermittent confusion and was noted after she received her IV Levaquin. Levaquin was stopped she was placed on Macrobid. She was able to increase her activity with physical therapy ambulate with a walker and knee immobilizer. Her leukocytosis has resolved. She's had no further fevers. Today she feels ready for discharge. She'll be discharged home with home physical therapy and a walker Physical Exam Vital Signs: Temp Pulse Resp BP Pulse Ox 98.0 F 79 17 142/84 H 98 10/06/16 12:02 10/06/16 12:02 10/06/16 12:02 10/06/16 12:02 10/06/16 12:02 Intake & Output 10/05/16 10/06/16 10/07/16 06:59 06:59 06:59 Intake Total 1965 1380 Output Total 950 800 Balance 1015 580 Weight 81.5 kg 81.5 kg General appearance: PRESENT: no acute distress, well-developed, well-nourished Head exam: PRESENT: atraumatic, normocephalic Eye exam: PRESENT: conjunctiva pink, EOMI, PERRLA. ABSENT: scleral icterus Ear exam: PRESENT: normal external ear exam Mouth exam: PRESENT: moist, tongue midline Neck exam: ABSENT: carotid bruit, JVD, lymphadenopathy, thyromegaly Respiratory exam: PRESENT: clear to auscultation bailey. ABSENT: rales, rhonchi, wheezes Cardiovascular exam: PRESENT: RRR. ABSENT: diastolic murmur, rubs, systolic murmur Pulses: PRESENT: normal dorsalis pedis pul Vascular exam: PRESENT: normal capillary refill GI/Abdominal exam: PRESENT: normal bowel sounds, soft. ABSENT: distended, guarding, mass, organolmegaly, rebound, tenderness Rectal exam: PRESENT: deferred Extremities exam: PRESENT: full ROM. ABSENT: calf tenderness, clubbing, pedal edema Neurological exam: PRESENT: alert, awake, oriented to person, oriented to place , oriented to time, oriented to situation, CN II-XII grossly intact. ABSENT: motor sensory deficit Psychiatric exam: PRESENT: appropriate affect, normal mood. ABSENT: homicidal ideation, suicidal ideation Skin exam: PRESENT: dry, intact, warm. ABSENT: cyanosis, rash Results Laboratory Results: 10/06/16 06:12 10/05/16 06:12 10/06/16 06:12 WBC 7.2 RBC 3.08 L Hgb 10.1 L Hct 29.9 L MCV 97 MCH 32.9 MCHC 33.9 RDW 16.1 H Plt Count 121 L Seg Neutrophils % Not Reportable Lymphocytes % Not Reportable Monocytes % Not Reportable Eosinophils % Not Reportable Basophils % Not Reportable Absolute Neutrophils Not Reportable Absolute Lymphocytes Not Reportable Absolute Monocytes Not Reportable Absolute Eosinophils Not Reportable Absolute Basophils Not Reportable Impressions: Chest X-Ray 10/03/16 22:13 IMPRESSION: Mild subsegmental atelectasis in the lung bases. Small left pleural effusion versus pleural scarring. Lung Scan-VQ NM 10/03/16 23:11 IMPRESSION: NORMAL PERFUSION LUNG SCAN. Knee X-Ray 10/04/16 00:00 IMPRESSION: Osteoarthritic changes in the medial compartment and patellofemoral compartment. Chondrocalcinosis. Lower Extremity MRI 10/04/16 00:00 IMPRESSION: Moderate joint effusion. Small free edge tear on the posterior horn of the medial meniscus. Ligaments are intact. No fracture. Limited or Localized CT 10/04/16 02:17 IMPRESSION: No acute findings of the renal system. Severe right renal atrophy. Extensive intra-abdominal calcifications and/or residual contrast suggestive of old granulomatous/ infectious disease. Possible 2.9 cm abdominal wall seroma. Qualifiers PATEINT BEING DISCHARGED WITH ANY OF THE FOLLOWING DIAGNOSIS?: No Plan Discharge Plan: Home with family. She will have home health physical therapy Time Spent: Less than 30 Minutes
== END 2016-10-06 12:25 | disposition home health service (06) | DRG 690 ==
LOC: ER 21:47 → EH 10-04 03:47 → OBSVTOIN 10-04 03:47 → EH 10-04 04:11 → UNDOADMOB 10-04 04:11 → 4S 10-04 05:25
PROVIDERS: ADMIT Internal Medicine; ATTEND Internal Medicine
PROC: 3E0F73Z Introduction of Anti-inflammatory into Respiratory Tract, Via Natural or Artificial Opening (ICD-10-PCS; principal; 2016-10-04)
DX: N39.0 Urinary tract infection, site not specified (principal); N17.9 Acute kidney failure, unspecified; M23.203 Derangement of unspecified medial meniscus due to old tear or injury, right knee; E78.5 Hyperlipidemia, unspecified; M06.9 Rheumatoid arthritis, unspecified; M10.9 Gout, unspecified; G62.9 Polyneuropathy, unspecified; K21.9 Gastro-esophageal reflux disease without esophagitis; I12.9 Hypertensive chronic kidney disease with stage 1 through stage 4 chronic kidney disease, or unspecified chronic kidney disease; N18.2 Chronic kidney disease, stage 2 (mild); M11.20 Other chondrocalcinosis, unspecified site; Z90.710 Acquired absence of both cervix and uterus; Z79.82 Long term (current) use of aspirin; Z79.899 Other long term (current) drug therapy; Z88.3 Allergy status to other anti-infective agents; Z88.1 Allergy status to other antibiotic agents; Z88.8 Allergy status to other drugs, medicaments and biological substances; Z88.0 Allergy status to penicillin; Z88.6 Allergy status to analgesic agent
CPT/HCPCS: 36415; 71010; 76380; 78580; 80053; 81001; 84550; 85025; 85379; 87040; 87086; 87804; 93971; 96365; 96375; 99285; A9540; J0744; J1644; J1885; J1956; J2270; J2920; J3490; J7030; J7512; J8499; L1830

== ENCOUNTER 2017-10-12 15:34 | Inpatient (IN) | payer MEDICARE ==
[~2017-10-12 15:34] MED LIST: ROCURONIUM BROMIDE INJ 50 MG/5 ML VIAL IV ONE; SUCCINYLCHOLINE CHLORIDE INJ 200 MG/10 ML VIAL ONE
[2017-10-12] MEDS ORDERED: RINGERS SOLUTION,LACTATED 1,000 ML IV ONE ×2 (16:17→19:43)
[2017-10-12] MEDS ORDERED: ONDANSETRON HCL INJ/PF 4 MG/2 ML SDV IV ONE (16:18)
--- NOTE | 2017-10-12 16:19 | ER Document Report ---
ED Medical Screen (RME) - General Chief Complaint: Flank Pain Stated Complaint: KIDNEY PROBLEMS Time Seen by Provider: 10/12/17 16:12 Mode of Arrival: Wheelchair Information source: Patient Notes: This is an 82-year-old woman who presents to the emergency room with left flank pain and difficulty urinating. She does have a history of frequent kidney stones and does have a history of "one functioning kidney". Patient was usual state of health until today in [place] when she started developing nausea, flank pain, and chills. TRAVEL OUTSIDE OF THE [place] IN LAST 30 DAYS: No - Related Data Allergies/Adverse Reactions: levofloxacin Allergy (Intermediate, Verified 10/12/17 15:38) Abnormal behavior cephalexin Allergy (Verified 10/12/17 15:38) fenofibrate [From Tricor] Allergy (Verified 10/12/17 15:38) indomethacin [From Indocin] Allergy (Verified 10/12/17 15:38) Vomiting oxycodone [From Percocet] Allergy (Verified 10/12/17 15:38) Hallucinations Penicillins Allergy (Verified 10/12/17 15:38) simvastatin [From Zocor] Allergy (Verified 10/12/17 15:38) tramadol [From Ultram] Allergy (Verified 10/12/17 15:38) Vomiting acetaminophen [From Percocet] Adverse Reaction (Verified 10/12/17 15:38) Hallucinations Past Medical History - Social History Chew tobacco use (# tins/day): No Frequency of alcohol use: None Drug Abuse: None - Past Medical History Cardiac Medical History: Reports: Hx Hypertension Renal/ Medical History: Denies: Hx Peritoneal Dialysis GI Medical History: Reports: Hx Gastroesophageal Reflux Disease. Denies: Hx Cirrhosis, Hx Diverticulitis, Hx Ulcerative Colitis Musculoskeltal Medical History: Reports Hx Arthritis, Reports Hx Gout Past Surgical History: Reports: Hx Hysterectomy, Hx Tonsillectomy Physical Exam - Vital signs Vitals: Temp Pulse Resp BP Pulse Ox 98.7 F 114 H 22 H 166/88 H 96 10/12/17 16:02 10/12/17 16:02 10/12/17 16:02 10/12/17 16:02 10/12/17 16:02 Course - Vital Signs Vital signs: Temp Pulse Resp BP Pulse Ox 98.7 F 114 H 22 H 166/88 H 96 10/12/17 16:02 10/12/17 16:02 10/12/17 16:02 10/12/17 16:02 10/12/17 16:02
[2017-10-12 16:59] LABS: HEMATOCRIT 39.7 % (36.0-47.0); MEAN CORPUSCULAR HEMOGLOBIN 31.9 pg (27.0-33.4); MEAN CORPUSCULAR HGB CONC 32.7 g/dL (32.0-36.0); MEAN CORPUSCULAR VOLUME 97 fl (80-97); PLATELET COUNT 161 10^3/uL (150-450); RED BLOOD COUNT 4.08 10^6/uL (3.72-5.28); RED CELL DISTRIBUTION WIDTH 15.8 % (11.5-14.0); WHITE BLOOD COUNT 8.7 10^3/uL (4.0-10.5)
--- NOTE | 2017-10-12 17:18 | ER Document Report ---
ED GI/ - General Mode of Arrival: Wheelchair Information source: Patient TRAVEL OUTSIDE OF THE [place] IN LAST 30 DAYS: No <JIL LINDSEY - Last Filed: 10/12/17 22:37> <SAMIA MARTINEZ - Last Filed: 10/12/17 23:26> - General Chief Complaint: Flank Pain Stated Complaint: KIDNEY PROBLEMS Time Seen by Provider: 10/12/17 16:12 Notes: Patient is an 82-year-old female who presents to the emergency department today with complaints of left-sided flank pain beginning today at 1100. Family members at bedside state that at taoism today at about 1100 the patient began feeling nauseated, she went to the bathroom and began throwing up, and describing a pain that began at her left flank and radiated around to her left lower quadrant. Family states the patient has a history of kidney stones and she stated that she felt like she was passing a stone. Family states the patient could not get comfortable. The patient has had chills but denies any fevers. Family and patient deny any diarrhea or incontinence. (JIL LINDSEY) - Related Data Allergies/Adverse Reactions: levofloxacin Allergy (Intermediate, Verified 10/12/17 15:38) Abnormal behavior cephalexin Allergy (Verified 10/12/17 15:38) fenofibrate [From Tricor] Allergy (Verified 10/12/17 15:38) indomethacin [From Indocin] Allergy (Verified 10/12/17 15:38) Vomiting oxycodone [From Percocet] Allergy (Verified 10/12/17 15:38) Hallucinations Penicillins Allergy (Verified 10/12/17 15:38) simvastatin [From Zocor] Allergy (Verified 10/12/17 15:38) tramadol [From Ultram] Allergy (Verified 10/12/17 15:38) Vomiting acetaminophen [From Percocet] Adverse Reaction (Verified 10/12/17 15:38) Hallucinations Past Medical History - General Information source: Patient - Social History Smoking Status: Former Smoker Cigarette use (# per day): No Chew tobacco use (# tins/day): No Frequency of alcohol use: None Drug Abuse: None Lives with: Family Family History: Reviewed & Not Pertinent Patient has suicidal ideation: No Patient has homicidal ideation: No - Past Medical History Cardiac Medical History: Reports: Hx Hypertension GI Medical History: Reports: Hx Gastroesophageal Reflux Disease Musculoskeltal Medical History: Reports Hx Arthritis, Reports Hx Gout Past Surgical History: Reports: Hx Hysterectomy, Hx Tonsillectomy <JIL LINDSEY - Last Filed: 10/12/17 22:37> Review of Systems - Review of Systems Constitutional: See HPI, Chills. denies: Fever EENT: No symptoms reported Cardiovascular: No symptoms reported Respiratory: No symptoms reported Gastrointestinal: See HPI, Abdominal pain - Left, Nausea, Vomiting. denies: Diarrhea Genitourinary: See HPI, Flank pain - Left. denies: Incontinence Female Genitourinary: No symptoms reported Musculoskeletal: No symptoms reported Skin: No symptoms reported Hematologic/Lymphatic: No symptoms reported Neurological/Psychological: No symptoms reported -: Yes All other systems reviewed and negative <JIL LINDSEY - Last Filed: 10/12/17 22:37> Physical Exam <JIL LINDSEY - Last Filed: 10/12/17 22:37> <SAMIA MARTINEZ - Last Filed: 10/12/17 23:26> - Vital signs Vitals: Temp Pulse Resp BP Pulse Ox 98.7 F 114 H 22 H 166/88 H 96 10/12/17 16:02 10/12/17 16:02 10/12/17 16:02 10/12/17 16:02 10/12/17 16:02 - Notes Notes: PHYSICAL EXAM GENERAL: Alert, interacts well. Appears uncomfortable. HEAD: Normocephalic, atraumatic. EYES: Pupils equal, round, and reactive to light. Extraocular movements intact. ENT: Oral mucosa moist, tongue midline. NECK: Full range of motion. Supple. Trachea midline. LUNGS: Clear to auscultation bilaterally, no wheezes, rales, or rhonchi. No respiratory distress. HEART: Tachycardic, regular rhythm. No murmurs, gallops, or rubs. ABDOMEN: Soft, non-tender. Mildly distended. Bowel sounds present in all 4 quadrants. No guarding, rigidity, or rebound. EXTREMITIES: Moves all 4 extremities spontaneously. No edema, radial and dorsalis pedis pulses 2/4 bilaterally. No cyanosis. NEUROLOGICAL: Alert and oriented x3. Normal speech. PSYCH: Normal affect, normal mood. SKIN: Warm, dry, normal turgor. No rashes or lesions noted. (JIL LINDSEY) Course - Laboratory Result Diagrams: 10/12/17 16:35 10/12/17 18:34 <JIL LINDSEY - Last Filed: 10/12/17 22:37> - Laboratory Result Diagrams: 10/12/17 16:35 10/12/17 18:34 <SAMIA MARTINEZ - Last Filed: 10/12/17 23:26> - Re-evaluation Re-evalutation: 10/12/17 20:27 CBC does not show leukocytosis but there is a bit of a left shift, CMP shows acute renal failure, lactic acidosis with a lactic acid of 4.6, urinalysis shows large blood and large leukocyte esterase, no nitrates, rest of microscopic was not returned. Urine culture is pending. There is an 8 mm obstructing stone just proximal to the bladder causing moderate hydronephrosis. Am concerned for an infected obstructing stone at this time, patient has been given Rocephin, patient is now borderline febrile with a temp of 100.2 and beginning to come tachycardic with heart rate of 132 on recheck. Patient is being hydrated. I am concerned for sepsis and feel this patient needs to have intervention for the infected obstructing stone, I did consult with Dr. Montano the urologist on-call who is coming in to examine the patient, I also phone call out to radiology to see if there is the possibility of interventional radiology placing a percutaneous nephrostomy tube. 10/12/17 21:13 We cannot do a percutaneous nephrostomy tube here at [place] per Bhavik the therapeutic recreation assistant after discussing with Dr. Nazario since we do not have a special procedure suite. Patient will be posted as an emergent case this evening for a ureteral stent by Dr. Motta. She requested the patient be admitted to the hospitalist, the hospitalist Dr. East agrees to accept this patient to her service. (SAMIA MARTINEZ) - Vital Signs Vital signs: Temp Pulse Resp BP Pulse Ox 100.2 F 118 H 12 129/63 H 92 10/12/17 19:43 10/12/17 22:37 10/12/17 22:37 10/12/17 19:43 10/12/17 22:37 - Laboratory Laboratory results interpreted by me: 03/06/2110/12/17 10/12/17 16:35 16:35 17:51 RDW 15.8 H Seg Neuts % (Manual) 88 H Lymphocytes % (Manual) 4 L Monocytes % (Manual) 2 L Metamyelocytes % 1 H Abs Lymphs (Manual) 0.3 L APTT 21.7 L Sodium Carbon Dioxide Anion Gap BUN Creatinine Est GFR ( Amer) Est GFR (Non-Af Amer) Lactic Acid Urine Protein 100 H Urine Blood LARGE H Ur Leukocyte Esterase LARGE H 10/12/17 10/12/17 18:34 18:34 RDW Seg Neuts % (Manual) Lymphocytes % (Manual) Monocytes % (Manual) Metamyelocytes % Abs Lymphs (Manual) APTT Sodium 145.5 H Carbon Dioxide 18 L Anion Gap 21 H BUN 52 H Creatinine 1.97 H Est GFR ( Amer) 29 L Est GFR (Non-Af Amer) 24 L Lactic Acid 4.6 H Urine Protein Urine Blood Ur Leukocyte Esterase - EKG Interpretation by Me Additional EKG results interpreted by me: 10/12/17 21:27 EKG shows sinus tachycardia at a rate of 119, normal axis, normal intervals, no ST segment elevations or depressions, no T-wave inversions per my interpretation. (SAMIA MARTINEZ) Critical Care Note - Critical Care Note Total time excluding time spent on procedures (mins): 45 <SAMIA MARTINEZ - Last Filed: 10/12/17 23:26> Discharge <JIL LINDSEY - Last Filed: 10/12/17 22:37> - Discharge Admitting Provider: Hospitalist - [facility] Unit Admitted: I[facility] <SAMIA MARTINEZ - Last Filed: 10/12/17 23:26> - Discharge Clinical Impression: Hydronephrosis with renal and ureteral calculous obstruction UTI (urinary tract infection) Qualifiers: Urinary tract infection type: acute pyelonephritis Qualified Code(s): N10 - Acute pyelonephritis Sepsis Qualifiers: Sepsis type: sepsis due to unspecified organism Qualified Code(s): A41.9 - Sepsis, unspecified organism Condition: Serious Disposition: ADMITTED INPATIENT Scribe Attestation: 10/12/17 23:26 I personally performed the services described in the documentation, reviewed and edited the documentation which was dictated to the scribe in my presence, and it accurately records my words and actions. (SAMIA MARTINEZ) Scribe Documentation - Scribe Written by Scribe:: Blane Hernandez, 10/12/2017 [id number] acting as scribe for :: Rashel <JIL LINDSEY - Last Filed: 10/12/17 22:37>
[2017-10-12 17:20] LABS: ABSOLUTE LYMPHOCYTES# (MANUAL) 0.3 10^3/uL (0.5-4.7); ABSOLUTE MONOCYTES # (MANUAL) 0.2 10^3/uL (0.1-1.4); ABSOLUTE NEUTROPHILS# (MANUAL) 8.2 10^3/uL (1.7-8.2); BAND NEUTROPHILS % (MANUAL) 5 % (3-5); BASOPHILS % (MANUAL) 0 % (0-2); EOSINOPHILS % (MANUAL) 0 % (0-6); LYMPHOCYTES % (MANUAL) 4 % (13-45); METAMYELOCYTES % (MANUAL) 1 % (0); MONOCYTES % (MANUAL) 2 % (3-13); SEGMENTED NEUTROPHILS % (MAN) 88 % (42-78); TOTAL CELLS COUNTED 100
[2017-10-12 17:22] LABS: ANISOCYTOSIS SLIGHT; PLATELET CLUMPS PRESENT; PLATELET COMMENT ADEQUATE; POLYCHROMASIA SLIGHT
[2017-10-12 18:12] LABS: APPEARANCE,URINE TURBID; BILIRUBIN,URINE NEGATIVE (NEGATIVE); GLUCOSE, URINE NEGATIVE (NEGATIVE); KETONES,URINE NEGATIVE (NEGATIVE); LEUKOCYTE ESTERASE,URINE LARGE (NEGATIVE); NITRITE,URINE NEGATIVE (NEGATIVE); PROTEIN,URINE 100 mg/dL (NEGATIVE); URINE SPECIFIC GRAVITY 1.012; UROBILINOGEN,URINE NEGATIVE mg/dL (<2.0)
[2017-10-12 18:13] LABS: COLOR,URINE YELLOW
[2017-10-12] MEDS ORDERED: HYDROMORPHONE HCL INJ/PF 2 MG/ML AMPULE IV ONE (18:49)
[2017-10-12 19:00] LABS: ALANINE AMINOTRANSFERASE 29 U/L (9-52); ALBUMIN 4.3 g/dL (3.5-5.0); ALKALINE PHOSPHATASE 78 U/L (38-126); ASPARTATE AMINO TRANSFERASE 21 U/L (14-36); BILIRUBIN,DIRECT 0.3 mg/dL (0.0-0.4); BILIRUBIN,TOTAL 0.6 mg/dL (0.2-1.3); BLOOD UREA NITROGEN 52 mg/dL (7-20); GLUCOSE 96 mg/dL (75-110); POTASSIUM 3.6 mmol/L (3.6-5.0); TOTAL PROTEIN 6.5 g/dL (6.3-8.2)
[2017-10-12 19:05] LABS: CARBON DIOXIDE 18 mmol/L (22-30); CHLORIDE 107 mmol/L (98-107); SODIUM 145.5 mmol/L (137-145)
[2017-10-12 19:07] LABS: ANION GAP 21 (5-19)
[2017-10-12] MEDS ORDERED: CEFTRIAXONE 1 GM/D5W RTU 1 GM/50 ML RTUPB IV ONE (19:43)
--- NOTE | 2017-10-12 19:45 | RADIOLOGY REPORT (SQ) ---
EXAM DESCRIPTION: CT LTD RENAL STONE PROTOCOL ON COMPLETED DATE/TIME: 10/12/2017 7:02 pm REASON FOR STUDY: left flank pain, r/o stone COMPARISON: 2017 TECHNIQUE: CT scan of the abdomen and pelvis performed without intravenous or oral contrast. Images reviewed with lung, soft tissue, and bone windows. Reconstructed coronal and sagittal MPR images revi ewed. All images stored on PACS. All CT scanners at this facility use dose modulation, iterative reconstruction, and/or weight based d osing when appropriate to reduce radiation dose to as low as reasonably achievable (ALARA). [facility]: Dose Right [facility]: CareDose [facility]: Dose Right [facility]: Teradose 4D [facility]: Smart [employer] RADIATION DOSE: CT Rad equipment meets quality standard of care and radiation dose reduction techniq ues were employed. CTDIvol: 8.2 mGy. DLP: 482 mGy-cm.mGy. LIMITATIONS: None. FINDINGS: LOWER CHEST: Cardiac enlargement. Motion artifact and subsegmental volume loss. Calcifie d basal pleural plaque on the right. Possibly associated with previous asbestos exposure. This is c hronic. No discrete masses or significant pleural fluid. NON-CONTRASTED LIVER, SPLEEN, ADRENALS: Calcifications around the periphery of the liver, intraabdomi nal. Similar calcifications about the spleen. No liver or spleen mass detected. No adrenal lesion. PANCREAS: No masses. No peripancreatic inflammatory changes. GALLBLADDER: Distended gallbladder without calcified stones or duct dilatation. RIGHT KIDNEY AND URETER: Extensive renal atrophy, chronic. LEFT KIDNEY AND URETER: Moderate left hydronephrosis with dilation of the left ureter to the level of a stone just proximal to the junction with the bladder. This measures up to almost 8 mm maximally w ith probable additional tiny stones within the ureter just proximal to this. Hounsfield units 480. Additional nonobstructing calculi in the kidney. AORTA AND RETROPERITONEUM: Atherosclerotic normal caliber aorta. No retroperitoneal mass. BOWEL AND PERITONEAL CAVITY: No bowel obstruction. No acute inflammatory process. Mild diverticulos is along the distal colon. Scattered calcifications in the mesenteric. APPENDIX: Surgically absent. PELVIS, BLADDER, AND ABDOMINAL WALL:Distal ureteral stone on the left as above. Additional scattered calcifications in the pelvic fat. Bladder decompressed without gross mass or stones. BONES: Spondylosis and scoliosis. OTHER: No other significant finding. IMPRESSION: 1. Left obstructive uropathy, at least moderate hydronephrosis due to a sizable distal l eft ureteral stone measuring almost 8 mm. There may be additional tiny distal ureteral stones as wel l. 2. 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 This may a lso explain calcifications in the abdominopelvic cavity. TECHNICAL DOCUMENTATION: JOB ID: [id number] Quality ID # [id number]: Final reports with documentation of one or more dose reduction techniques (e.g., Au tomated exposure control, adjustment of the mA and/or kV according to patient size, use of iterative reconstruction technique) 2010 [employer]- All Rights Reserved Reading location - IP/workstation name: [email or web address]
[2017-10-12] MEDS ORDERED: CEFTRIAXONE INJ 1000 MG VIAL ONE (19:56)
[2017-10-12 20:45] LABS: INTERNATIONAL RATION (INR) 0.95; PROTHROMBIN TIME 13.4 SEC (11.4-15.4)
[2017-10-12 20:46] LABS: PARTIAL THROMBOPLASTIN TIME 21.7 SEC (23.5-35.8)
[2017-10-12] MEDS ORDERED: NORMAL SALINE 1000 ML 1,000 ML IV PRN ×2 (21:20→23:41)
[2017-10-12] MEDS ORDERED: ACETAMINOPHEN 325 MG TABLET PO PRN (21:20)
[2017-10-12] MEDS ORDERED: PROMETHAZINE HCL INJ 25 MG/1 ML VIAL IV PRN (21:20)
[2017-10-12] MEDS ORDERED: ALBUTEROL SULFATE 0.083% NEB 2.5 MG/3 ML AMPUL NEB PRN (21:20)
[2017-10-12] MEDS ORDERED: FENTANYL CITRATE INJ/PF 100 MCG/2 ML AMPUL ONE (21:31)
[2017-10-12] MEDS ORDERED: PROPOFOL INJ 200 MG/20 ML VIAL IV ONE (21:31)
--- NOTE | 2017-10-12 21:43 | RADIOLOGY REPORT (SQ) ---
EXAM DESCRIPTION: CHEST SINGLE VIEW COMPLETED DATE/TIME: 10/12/2017 9:25 pm REASON FOR STUDY: preop COMPARISON: CT abdomen from earlier. NUMBER OF VIEWS: One view. TECHNIQUE: Single frontal radiographic view of the chest acquired. LIMITATIONS: None. FINDINGS: LUNGS AND PLEURA: Patchy basilar airspace disease particularly on the left. MEDIASTINUM AND HILAR STRUCTURES: Grossly stable contours allowing for portable technique. HEART AND VASCULAR STRUCTURES: Cardiac enlargement without overt failure. BONES: No acute findings. HARDWARE: None in the chest. OTHER: No other significant finding. IMPRESSION: Mild left basilar opacity. Cardiac enlargement without failure. TECHNICAL DOCUMENTATION: JOB ID: [id number] [employer]- All Rights Reserved Reading location - IP/workstation name: [email or web address]
--- NOTE | 2017-10-12 21:45 | EKG REPORT ---
SEVERITY:- OTHERWISE NORMAL ECG - SINUS TACHYCARDIA : Confirmed by: Barb Wong 12-Oct-2017 21:45:22
[2017-10-12] MEDS ORDERED: HEPARIN SOD (PORCINE) 5,000 UNIT/ML 1 ML SYRINGE SUBCUT SCH (22:00)
[2017-10-12] MEDS ORDERED: VANCOMYCIN HCL 0 MG in DEXTROSE 5%-WATER 250 ML IV NR (22:00)
[2017-10-12] MEDS ORDERED: VANCOMYCIN HCL INJ 1000 MG VIAL IV PRN (22:04)
[2017-10-12] MEDS ORDERED: VANCOMYCIN HCL 1,250 MG in DEXTROSE 5%-WATER 250 ML IV ONE (23:00)
--- NOTE | 2017-10-12 23:03 | Brief Operative Note ---
BRIEF OPERATIVE REPORT DATE OF SURGERY: 10/12/17 TIME OF SURGERY: 21:30 PREOPERATIVE DIAGNOSIS: Infected, obstructing left distal ureteral stone in solitary kidney, JOAQUÍN, COPD, Obesity, Nephrolithiasis POSTOPERATIVE DIAGNOSIS: Infected, obstructing left distal ureteral stone in solitary kidney, JOAQUÍN, COPD, Obesity, Nephrolithiasis SURGEON: SAMIA PISANO FINDINGS: Obstructing 8 mm distal left ureteral stone with proximal hydronephrosis. Purulent drainage from kidney after stent placement. COMPLICATIONS: None ESTIMATED BLOOD LOSS: 0 TISSUE REMOVED OR ALTERED: Urine for culture TECHNICAL PROCEDURE: Cystoscopy, Left retrograde pyelogram, left ureteral stent placement, left renal pelvis urine sent for culture.
--- NOTE | 2017-10-12 23:12 | Operative Report ---
Operative Report DATE OF SURGERY: 10/12/17 PREOPERATIVE DIAGNOSIS: Infected, obstructing left distal ureteral stone in solitary kidney, JOAQUÍN, COPD, Obesity, Nephrolithiasis, HTN, HLD, right MARANDA s/p failed renal artery stent POSTOPERATIVE DIAGNOSIS: Infected, obstructing left distal ureteral stone in solitary kidney, JOAQUÍN, COPD, Obesity, Nephrolithiasis OPERATION: Cystoscopy, Left retrograde pyelogram, left ureteral stent placement , left renal pelvis urine sent for culture. SURGEON: SAMIA PISANO ANESTHESIA: GA TISSUE REMOVED OR ALTERED: Urine for culture COMPLICATIONS: None ESTIMATED BLOOD LOSS: 0 INTRAOPERATIVE FINDINGS: Obstructing 8 mm distal left ureteral stone with proximal hydronephrosis. Purulent drainage from kidney after stent placement. PROCEDURE: 82/F UTI/Severe sepsis from an 8 mm distal left obstructing stone in a functional solitary kidney. Consent obtained from daughter and patient taken emergently to OR for intervention. Pt administered excellent anesthesia and placed in lithotomy then prepped and draped in usual sterile fashion. Time out performed. Vanc and Cefepime given preop. 23Fr cystoscope used to enter the bladder. Significant debris present. left UO identified and 0.035 sensor tip guide wire advanced. This did not move past the stone and was therefore exchanged for a 0.035 glidewire which was able to be advanced beyond the stone up to the renal pelvis. The 5 Fr open ended catheter was advanced over the wire, wire removed and urine obtained for culture. This revealed copious amounts of purulent material. Once urine was obtained, retrograde pyelogram was performed. The renal pelvis appeared mildly dilated. The 0.035 sensor tip wire was then placed through the catheter, catheter removed and a 7 Fr x 24 cm JJ stent advanced up to the renal pelvis under fluoroscopy. The wire was removed and a curl was seen in the renal pelvis and bladder on fluoro. The tether was removed and a paulino catheter placed to drain the bladder. She was transferred to the ICU for hemodynamic monitoring and airway management. Plan: ICU admission. Follow blood and urine cultures. Broad spectrum antibiotics, modify when cultures available. Plan for 2 weeks of culture specific antibiotics prior to definitive stone intervention.
--- NOTE | 2017-10-12 23:27 | RADIOLOGY REPORT (SQ) ---
EXAM DESCRIPTION: PYELOGRAM RETROGRADE; NO CHG FLUORO COMPLETED DATE/TIME: 10/12/2017 11:10 pm REASON FOR STUDY: CYSTOSCOPY LEFT URETERAL STENT INSERTION COMPARISON: CT abdomen and pelvis 10/12/2017 FLUOROSCOPY TIME: 1.02 minutes. TECHNIQUE: Intra-operative images acquired during surgical procedure to evaluate progress. NUMBER OF IMAGES: Cine fluoroscopic images. LIMITATIONS: None. FINDINGS: Intraoperative fluoroscopic images demonstrate partial contrast opacification of the left renal collecting system. There is moderate left-sided hydronephrosis. There is placement of a doubl e-J left ureteral stent. IMPRESSION: IMAGE(S) OBTAINED DURING PROCEDURE. COMMENT: Quality ID [id number]: Final reports for procedures using fluoroscopy that document radiation exp osure indices, or exposure time and number of fluorographic images (if radiation exposure indices are not available) Please consult full operative report of the attending physician for description of the procedure. TECHNICAL DOCUMENTATION: JOB ID: [id number] 2010 [employer]- All Rights Reserved Reading location - IP/workstation name: [email or web address]
--- NOTE | 2017-10-12 23:27 | RADIOLOGY REPORT (SQ) ---
EXAM DESCRIPTION: PYELOGRAM RETROGRADE; NO CHG FLUORO COMPLETED DATE/TIME: 10/12/2017 11:10 pm REASON FOR STUDY: CYSTOSCOPY LEFT URETERAL STENT INSERTION COMPARISON: CT abdomen and pelvis 10/12/2017 FLUOROSCOPY TIME: 1.02 minutes. TECHNIQUE: Intra-operative images acquired during surgical procedure to evaluate progress. NUMBER OF IMAGES: Cine fluoroscopic images. LIMITATIONS: None. FINDINGS: Intraoperative fluoroscopic images demonstrate partial contrast opacification of the left renal collecting system. There is moderate left-sided hydronephrosis. There is placement of a doubl e-J left ureteral stent. IMPRESSION: IMAGE(S) OBTAINED DURING PROCEDURE. COMMENT: Quality ID [id number]: Final reports for procedures using fluoroscopy that document radiation exp osure indices, or exposure time and number of fluorographic images (if radiation exposure indices are not available) Please consult full operative report of the attending physician for description of the procedure. TECHNICAL DOCUMENTATION: JOB ID: [id number] 2010 [employer]- All Rights Reserved Reading location - IP/workstation name: [email or web address]
[2017-10-13] MEDS ORDERED: HYDROCORTISONE SOD SUCCINATE INJ/PF 100 MG/2 ML SDV IV ONE (00:04)
[2017-10-13] MEDS ORDERED: NOREPINEPHRINE BITARTRATE INJ/PF 4 MG/4 ML SDV IV ONE (00:59)
--- NOTE | 2017-10-13 02:03 | PDOC H&P ---
History of Present Illness Patient complains of: Nausea/vomiting and left flank pain around 11 AM. History of Present Illness: JUDY JAMES is a 82 year old female with history of rheumatoid arthritis (on Plaquenil and prednisone 5 mg daily), disc herniation (post recent L3-L4 surgery on 05/2017) and nephrolithiasis (with nonfunctional right kidney) was admitted with above-mentioned complaints. The patient is currently sleepy after she received 0.5 mg IV Dilaudid x1 in the ED, so most of the history was obtained from her daughter (who is a nurse @ [employer]) at bedside. According to her daughter, the patient passed a kidney stone on 10/09/2017 but she never complained of any pain. But at about 11 AM while at [employer] today, she complained of feeling nauseous and vomited once. The the vomitus was nonbloody. She also was complaining of left flank pain radiating down to her groin. Her daughter gave her some Zofran with some relief. But since the patient was still uncomfortable, they decided to bring her to the hospital for further management and treatment. There was no report of any fever, chills, chest pain, worsening shortness of breath, cough, diarrhea or dysuria, hematuria. In the ED, her temperature was 98.7, heart rate 114, respiratory rate 22, blood pressure 166/88 with oxygen saturation of 96% on room air. Her WBC was 8.7 and her hemoglobin was 13.0. Lactic acid was 4.6. An abdominal CAT scan was done which showed left obstructive uropathy with hydronephrosis and distal left ureteral stone measuring about 8 mm. 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 She received 1 g Rocephin 1 and urology was consulted who is planning to take her to OR tonight. Past Medical History Medical History: Other - According to her daughter and based on previous records. 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 GI Medical History: Reports: Gastroesophageal Reflux Disease Denies: Cirrhosis, Diverticulitis, Ulcerative Colitis Musculoskeltal Medical History: Reports: Arthritis - rheumatoid., Gout, Other - radiculopathy and right leg numbness pre daughter, right knee meniscal tear Past Surgical History Past Surgical History: Reports: Appendectomy, Hysterectomy, Orthopedic Surgery - L3-L4 back surgery in 05/2017., Tonsillectomy, Vascular Surgery - renal hepatic artery bypass on the right., Other - abdominal hernia repair; multiple D &Cs. Social History Smoking Status: Never Smoker Frequency of Alcohol Use: None Hx Recreational Drug Use: No Drugs: None - Advance Directive Resuscitation Status: Full Code Family History Parental Family History Reviewed: No Children Family History Reviewed: No Sibling(s) Family History Reviewed.: No Medication/Allergy Home Medications: Albuterol Sulfate [Proair HFA Inhalation Aerosol 8.5 gm MDI] 1 puff IH Q6H 10/04 Allopurinol [Zyloprim 300 mg Tablet] 300 mg PO DAILY 10/04/16 Aspirin [Ecotrin 81 mg EC Tablet] 81 mg PO DAILY 10/04/16 Cholecalciferol (Vitamin D3) [Vitamin D3] 1,000 unit PO DAILY 10/04/16 Docusate Sodium [Colace 100 mg Capsule] 100 mg PO DAILYP PRN 10/04/16 Gemfibrozil [Lopid 600 mg Tablet] 600 mg PO Q12 10/04/16 Hydroxychloroquine Sulfate [Plaquenil 200 mg Tablet] 200 mg PO DAILY 10/04/16 Magnesium Oxide [Mag-Ox 400 mg Tablet] 400 mg PO DAILY 10/04/16 Omeprazole 20 mg PO DAILY 10/04/16 Prednisone [Deltasone 10 mg Tablet] 10 mg PO DAILY 10/04/16 Pregabalin [Lyrica 75 mg Capsule] 75 mg PO Q12 10/04/16 Vitamin B Complex [Super B Complex] 1 each PO DAILY 10/04/16 Acetaminophen [Tylenol 325 mg Tablet] 650 mg PO Q4HP PRN tablet 10/06/16 Lidocaine [Lidoderm 5% (700 mg) Transdermal Patch] 2 patch TP DAILY #60 adh..patch 10/06/16 Nitrofurantoin Monohyd/M-Cryst [Macrobid 100 mg Capsule] 100 mg PO BID #12 capsule 10/06/16 Polyethylene Glycol 3350 [Miralax Powder 17 gm/Packet] 17 gm PO DAILY powd.pack 10/06/16 Walker [Folding Walker] 1 each MC ASDIR PRN #1 each 10/06/16 Allergies/Adverse Reactions: levofloxacin Allergy (Intermediate, Verified 10/13/17 01:35) Hallucinations cephalexin Allergy (Verified 10/13/17 01:35) Confusion fenofibrate [From Tricor] Allergy (Verified 10/12/17 15:38) indomethacin [From Indocin] Allergy (Verified 10/12/17 15:38) Vomiting oxycodone [From Percocet] Allergy (Verified 10/12/17 15:38) Hallucinations Penicillins Allergy (Verified 10/13/17 01:35) Anaphylaxis simvastatin [From Zocor] Allergy (Verified 10/13/17 01:35) weakness tramadol [From Ultram] Allergy (Verified 10/12/17 15:38) Vomiting acetaminophen [From Percocet] Adverse Reaction (Verified 10/12/17 15:38) Hallucinations neurontin Adverse Reaction (Uncoded 10/13/17 01:35) Dizziness Review of Systems ROS unobtainable: Other - Unable to obtain an adequate review of system since the patient is sleepy. Physical Exam Vital Signs: Temp Pulse Resp BP Pulse Ox 100.2 F 132 H 16 129/63 H 97 10/12/17 19:43 10/12/17 19:43 10/12/17 19:43 10/12/17 19:43 10/12/17 19:43 Intake & Output 10/11/17 10/12/17 10/13/17 05:59 06:59 06:59 Weight 75.296 kg General appearance: PRESENT: mild distress, well-developed Head exam: PRESENT: atraumatic, normocephalic Eye exam: PRESENT: PERRLA Mouth exam: PRESENT: dry mucosa Neck exam: PRESENT: full ROM. ABSENT: JVD Respiratory exam: PRESENT: decreased breath sounds. ABSENT: rales, rhonchi, wheezes Cardiovascular exam: PRESENT: +S1, +S2, tachycardia Pulses: PRESENT: normal dorsalis pedis pul GI/Abdominal exam: PRESENT: normal bowel sounds, soft. ABSENT: distended, rebound, tenderness Rectal exam: PRESENT: deferred Extremities exam: PRESENT: other - limited since patient is sleepy. Neurological exam: PRESENT: other - sleepy but arousable. Skin exam: PRESENT: dry, warm. ABSENT: erythema, rash Results Laboratory Results: 10/12/17 16:35 10/12/17 18:34 10/12/17 10/12/17 10/12/17 16:35 16:35 17:51 WBC 8.7 RBC 4.08 Hgb 13.0 Hct 39.7 MCV 97 MCH 31.9 MCHC 32.7 RDW 15.8 H Plt Count 161 Seg Neutrophils % Not Reportable Lymphocytes % Not Reportable Monocytes % Not Reportable Eosinophils % Not Reportable Basophils % Not Reportable Absolute Neutrophils Not Reportable Absolute Lymphocytes Not Reportable Absolute Monocytes Not Reportable Absolute Eosinophils Not Reportable Absolute Basophils Not Reportable Sodium Cancelled Potassium Cancelled Chloride Cancelled Carbon Dioxide Cancelled Anion Gap Cancelled BUN Cancelled Creatinine Cancelled Est GFR ( Amer) Cancelled Est GFR (Non-Af Amer) Cancelled Glucose Cancelled Lactic Acid Calcium Cancelled Total Bilirubin Cancelled AST Cancelled ALT Cancelled Alkaline Phosphatase Cancelled Total Protein Cancelled Albumin Cancelled Urine Color YELLOW Urine Appearance TURBID Urine pH 6.0 Ur Specific [place] Pos 1.012 Urine Protein 100 H Urine Glucose (UA) NEGATIVE Urine Ketones NEGATIVE Urine Blood LARGE H Urine Nitrite NEGATIVE Ur Leukocyte Esterase LARGE H Urine RBC (Auto) 0 10/12/17 10/12/17 18:34 18:34 WBC RBC Hgb Hct MCV MCH MCHC RDW Plt Count Seg Neutrophils % Lymphocytes % Monocytes % Eosinophils % Basophils % Absolute Neutrophils Absolute Lymphocytes Absolute Monocytes Absolute Eosinophils Absolute Basophils Sodium 145.5 H Potassium 3.6 Chloride 107 Carbon Dioxide 18 L Anion Gap 21 H BUN 52 H Creatinine 1.97 H Est GFR ( Amer) 29 L Est GFR (Non-Af Amer) 24 L Glucose 96 Lactic Acid 4.6 H Calcium 10.0 Total Bilirubin 0.6 AST 21 ALT 29 Alkaline Phosphatase 78 Total Protein 6.5 Albumin 4.3 Urine Color Urine Appearance Urine pH Ur Specific [place] Pos Urine Protein Urine Glucose (UA) Urine Ketones Urine Blood Urine Nitrite Ur Leukocyte Esterase Urine RBC (Auto) 10/12/17 18:34 Creatine Kinase 37 EKG Comments: Lead EKG: Sinus rhythm, ventricular rate 120, axis of +40, QTc prolongation, first-degree AV block, poor R-wave complication, no acute changes. No previous 12-lead EKG in the system to compare to. Impressions: Limited or Localized CT 10/12/17 18:47 IMPRESSION: 1. Left obstructive uropathy, at least moderate hydronephrosis due to a sizable distal left ureteral stone measuring almost 8 mm. There may be additional tiny distal ureteral stones as well. 2. 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 This may also explain calcifications in the abdominopelvic cavity. Assessment & Plan - Diagnosis (1) Sepsis Qualifiers: Sepsis type: sepsis due to unspecified organism Qualified Code(s): A41.9 - Sepsis, unspecified organism Is this a current diagnosis for this admission?: Yes Plan: Given tachycardia and fever with elevated lactic acid level, likely secondary to UTI/?infected kidney stone. CAT scan abdomen reviewed. Will start broad coverage antibiotics with Vancomycin and Cefepime and follow-up cultures. Will also start hydrocortisone since the patient is on low-dose prednisone chronically per her daughter. Of note, the patient has multiple allergies/ intolerance to several antibiotics. (2) Hydronephrosis with renal and ureteral calculous obstruction Is this a current diagnosis for this admission?: Yes Plan: On on her abdominal CAT scan. Urology has been consulted by the ED physician and the patient is being prepped to go to OR shortly. (3) Acute renal failure superimposed on stage 3 chronic kidney disease Qualifiers: Acute renal failure type: unspecified Qualified Code(s): N17.9 - Acute kidney failure, unspecified; N18.3 - Chronic kidney disease, stage 3 (moderate) ; N18.3 - Chronic kidney disease, stage 3 (moderate) Is this a current diagnosis for this admission?: Yes Plan: Most likely secondary to obstructive uropathy. Management per urology. We will continue IV hydration and monitor kidney shunt and urine output. (4) Rheumatoid arthritis Is this a current diagnosis for this admission?: No Plan: Negative markers per her daughter. 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 (5) History of herniated intervertebral disc Is this a current diagnosis for this admission?: No Plan: the patient is post L3-L4 back surgery on 05/2017. She received an epidural/ nerve block on 10/08/2017 and it seems that she may be requiring another surgery per daughter. - Time Time Spent: Greater than 70 Minutes - Inpatient Certification Based on my medical assessment, after consideration of the patient's comorbidities, presenting symptoms, or acuity I expect that the services needed warrant INPATIENT care.: Yes I certify that my determination is in accordance with my understanding of Medicare's requirements for reasonable and necessary INPATIENT services [42 CFR 412.3e].: Yes
[2017-10-13] MEDS ORDERED: DEXTROSE 5%-WATER 250 ML with NOREPINEPHRINE BITARTRATE 4 MG IV PRN ×2 (02:10)
[2017-10-13] MEDS ORDERED: HYDROCORTISONE SOD SUCCINATE INJ/PF 100 MG/2 ML SDV ONE (05:20)
[2017-10-13] MEDS: METRONIDAZOLE 500 MG/NS RTU 100 ML IV SCH ×5 (05:25→23:32)
[2017-10-13] MEDS: CEFEPIME 1 GM/D5W RTU 1 GM/50 ML RTUPB IV SCH ×3 (05:26→22:12)
[2017-10-13] MEDS: PROPOFOL 100 ML IV PRN ×4 (05:29→20:33)
[2017-10-13] MEDS: HEPARIN SOD (PORCINE) 5,000 UNIT/ML 1 ML SYRINGE SUBCUT SCH ×3 (05:38→22:12)
[2017-10-13 06:42] LABS: BLOOD UREA NITROGEN 50 mg/dL (7-20); CALCIUM 8.2 mg/dL (8.4-10.2); CHLORIDE 112 mmol/L (98-107); GLUCOSE 82 mg/dL (75-110); POTASSIUM 3.5 mmol/L (3.6-5.0); SODIUM 143.1 mmol/L (137-145)
[2017-10-13 06:44] LABS: ANION GAP 16 (5-19); CARBON DIOXIDE 15 mmol/L (22-30)
[2017-10-13 07:05] LABS: ARTERIAL BLOOD BASE EXCESS -8.2 mmol/L; ARTERIAL BLOOD H2CO3 0.91 mmol/L (1.05-1.35); ARTERIAL BLOOD HCO3 16.3 mmol/L (20-26); ARTERIAL BLOOD O2 SATURATION 95.4 % (94-98); ARTERIAL BLOOD PCO2 30.1 mmHg (35-45); ARTERIAL BLOOD PH 7.35 (7.35-7.45); ARTERIAL BLOOD PO2 78.9 mmHg (80-100); ARTERIAL BLOOD TOTAL CO2 17.2 mmol/L (21-25)
[2017-10-13 07:06] LABS: ARTERIAL BLOOD FIO2 40%
--- NOTE | 2017-10-13 07:31 | RADIOLOGY REPORT (SQ) ---
EXAM DESCRIPTION: CHEST SINGLE VIEW CLINICAL HISTORY: vent management COMPARISON: 10/12/2017 FINDINGS: Single frontal view of the chest. Endotracheal tube with tip at the level of the clavicles. NG tube with tip curled in the stomach. Tortuosity of thoracic aorta. Heart is not definitely enlarged. Elevation the left hemidiaphragm is unchanged. Minimal left basilar opacities are unchanged. No large effusion or pneumothorax. No displaced rib fractures identified. Upper abdominal soft tissues are unremarkable. IMPRESSION: 1. Endotracheal tube and NG tube in appropriate radiographic position. Otherwise stable appearance of the chest.
[2017-10-13 07:51] LABS: HEMATOCRIT 30.3 % (36.0-47.0); MEAN CORPUSCULAR HGB CONC 32.9 g/dL (32.0-36.0); MEAN CORPUSCULAR VOLUME 97 fl (80-97); PLATELET COUNT 148 10^3/uL (150-450); RED BLOOD COUNT 3.11 10^6/uL (3.72-5.28); RED CELL DISTRIBUTION WIDTH 15.9 % (11.5-14.0)
[2017-10-13] MEDS ORDERED: RINGERS SOLUTION,LACTATED 1,000 ML IV PRN (08:01)
[2017-10-13] MEDS: NORMAL SALINE 1000 ML 1,000 ML IV PRN ×2 (08:37→17:13)
[2017-10-13 08:43] LABS: SEGMENTED NEUTROPHILS % (MAN) 74 % (42-78); TOTAL CELLS COUNTED 100
[2017-10-13 08:45] LABS: ABSOLUTE MONOCYTES # (MANUAL) 1.3 10^3/uL (0.1-1.4); ABSOLUTE NEUTROPHILS# (MANUAL) 65.7 10^3/uL (1.7-8.2); ANISOCYTOSIS SLIGHT; BASOPHILS % (MANUAL) 0 % (0-2); EOSINOPHILS % (MANUAL) 0 % (0-6); LYMPHOCYTES % (MANUAL) 0 % (13-45); MONOCYTES % (MANUAL) 2 % (3-13); PLATELET COMMENT ADEQUATE; POIKILOCYTOSIS 1+; TEAR DROP CELLS 1+; TOXIC GRANULATION SLIGHT
[2017-10-13 08:49] LABS: BAND NEUTROPHILS % (MANUAL) 24 % (3-5)
[2017-10-13] MEDS: HYDROCORTISONE SOD SUCCINATE INJ/PF 100 MG/2 ML SDV IV SCH ×2 (09:36→22:11)
[2017-10-13] MEDS ORDERED: LACOSAMIDE 100 MG TABLET PO ONE (13:30)
[2017-10-13 13:49] LABS: HEMATOCRIT 30.9 % (36.0-47.0); HEMOGLOBIN 9.9 g/dL (12.0-15.5); MEAN CORPUSCULAR HEMOGLOBIN 31.5 pg (27.0-33.4); MEAN CORPUSCULAR HGB CONC 32.1 g/dL (32.0-36.0); MEAN CORPUSCULAR VOLUME 98 fl (80-97); PLATELET COUNT 133 10^3/uL (150-450); RED BLOOD COUNT 3.16 10^6/uL (3.72-5.28); RED CELL DISTRIBUTION WIDTH 15.9 % (11.5-14.0)
[2017-10-13 14:16] LABS: WHITE BLOOD COUNT 45.5 10^3/uL (4.0-10.5)
[2017-10-13 14:52] LABS: PATH REVIEW PATHOLOGIST REVIEWED
[2017-10-13] MEDS: FENTANYL CITRATE INJ/PF 100 MCG/2 ML AMPUL IV PRN ×2 (15:39→19:29)
[2017-10-13] MEDS: MAGNESIUM SULFATE 1 GM/D5W 100 ML IV SCH ×2 (15:42→17:10)
[2017-10-13] MEDS: VANCOMYCIN HCL 750 MG in DEXTROSE 5%-WATER 250 ML IV SCH (15:43)
[2017-10-13 17:33] LABS: ARTERIAL BLOOD BASE EXCESS -6.1 mmol/L; ARTERIAL BLOOD H2CO3 0.85 mmol/L (1.05-1.35); ARTERIAL BLOOD HCO3 17.6 mmol/L (20-26); ARTERIAL BLOOD O2 SATURATION 96.6 % (94-98); ARTERIAL BLOOD PCO2 28.2 mmHg (35-45); ARTERIAL BLOOD PH 7.41 (7.35-7.45); ARTERIAL BLOOD PO2 83.9 mmHg (80-100); ARTERIAL BLOOD TOTAL CO2 18.4 mmol/L (21-25)
[2017-10-13 17:34] LABS: ARTERIAL BLOOD FIO2 30%
[2017-10-13] MEDS: POTASSIUM CHLORIDE 20 MEQ/50 ML RTU IV SCH ×2 (18:21→19:27)
--- NOTE | 2017-10-13 19:48 | PDOC PROGRESS REPORT ---
Subjective Progress Note for:: 10/13/17 Subjective:: Intubated and sedated Reason For Visit: SEVERE SEPSIS, UTI Physical Exam Vital Signs: Temp Pulse Resp BP Pulse Ox 99.7 F 83 15 91/49 L 97 10/13/17 18:00 10/13/17 18:00 10/13/17 18:46 10/13/17 18:46 10/13/17 18:46 Intake & Output 10/12/17 10/13/17 10/14/17 06:59 06:59 06:59 Intake Total 4842 2285 Output Total 1250 2380 Balance 3592 -95 Weight 81.5 kg General appearance: PRESENT: no acute distress, well-developed, well-nourished Head exam: PRESENT: atraumatic, normocephalic Eye exam: PRESENT: conjunctiva pink, PERRLA Ear exam: PRESENT: normal external ear exam Mouth exam: PRESENT: other - ET tube in place Neck exam: ABSENT: lymphadenopathy Respiratory exam: PRESENT: clear to auscultation bailey. ABSENT: rales, rhonchi, wheezes Cardiovascular exam: PRESENT: RRR. ABSENT: systolic murmur Pulses: PRESENT: normal radial pulses GI/Abdominal exam: PRESENT: normal bowel sounds, soft. ABSENT: distended, tenderness Extremities exam: ABSENT: pedal edema Musculoskeletal exam: PRESENT: normal inspection Neurological exam: PRESENT: other - 2 bated and sedated Psychiatric exam: ABSENT: agitated, anxious Skin exam: PRESENT: dry, warm Results Laboratory Results: 10/13/17 13:23 10/13/17 06:10 10/12/17 10/13/17 10/13/17 23:49 06:10 06:10 WBC Cancelled RBC Cancelled Hgb Cancelled Hct Cancelled MCV Cancelled MCH Cancelled MCHC Cancelled RDW Cancelled Plt Count Cancelled Seg Neutrophils % Lymphocytes % Monocytes % Eosinophils % Basophils % Absolute Neutrophils Absolute Lymphocytes Absolute Monocytes Absolute Eosinophils Absolute Basophils Carbonic Acid HCO3/H2CO3 Ratio ABG pH ABG pCO2 ABG pO2 ABG HCO3 ABG O2 Saturation ABG Base Excess FiO2 Sodium Potassium Chloride Carbon Dioxide Anion Gap BUN Creatinine Est GFR ( Amer) Est GFR (Non-Af Amer) Glucose Lactic Acid 4.0 H 3.5 H Calcium Magnesium 10/13/17 10/13/17 10/13/17 06:10 06:10 06:45 WBC RBC Hgb Hct MCV MCH MCHC RDW Plt Count Seg Neutrophils % Lymphocytes % Monocytes % Eosinophils % Basophils % Absolute Neutrophils Absolute Lymphocytes Absolute Monocytes Absolute Eosinophils Absolute Basophils Carbonic Acid 0.91 L HCO3/H2CO3 Ratio 17:1 ABG pH 7.35 ABG pCO2 30.1 L ABG pO2 78.9 L ABG HCO3 16.3 L ABG O2 Saturation 95.4 ABG Base Excess -8.2 FiO2 40% Sodium 143.1 Potassium 3.5 L Chloride 112 H Carbon Dioxide 15 L Anion Gap 16 BUN 50 H Creatinine 2.08 H Est GFR ( Amer) 28 L Est GFR (Non-Af Amer) 23 L Glucose 82 Lactic Acid Calcium 8.2 L Magnesium 1.4 L 10/13/17 10/13/17 10/13/17 07:35 13:23 16:14 WBC 67.0 H* D 45.5 H* RBC 3.11 L 3.16 L Hgb 10.0 L D 9.9 L Hct 30.3 L 30.9 L MCV 97 98 H MCH 32.0 31.5 MCHC 32.9 32.1 RDW 15.9 H 15.9 H Plt Count 148 L 133 L Seg Neutrophils % Not Reportable Lymphocytes % Not Reportable Monocytes % Not Reportable Eosinophils % Not Reportable Basophils % Not Reportable Absolute Neutrophils Not Reportable Absolute Lymphocytes Not Reportable Absolute Monocytes Not Reportable Absolute Eosinophils Not Reportable Absolute Basophils Not Reportable Carbonic Acid HCO3/H2CO3 Ratio ABG pH ABG pCO2 ABG pO2 ABG HCO3 ABG O2 Saturation ABG Base Excess FiO2 Sodium Potassium Chloride Carbon Dioxide Anion Gap BUN Creatinine Est GFR ( Amer) Est GFR (Non-Af Amer) Glucose Lactic Acid 1.4 Calcium Magnesium 10/13/17 17:25 WBC RBC Hgb Hct MCV MCH MCHC RDW Plt Count Seg Neutrophils % Lymphocytes % Monocytes % Eosinophils % Basophils % Absolute Neutrophils Absolute Lymphocytes Absolute Monocytes Absolute Eosinophils Absolute Basophils Carbonic Acid 0.85 L HCO3/H2CO3 Ratio 20:1 ABG pH 7.41 ABG pCO2 28.2 L ABG pO2 83.9 ABG HCO3 17.6 L ABG O2 Saturation 96.6 ABG Base Excess -6.1 FiO2 30% Sodium Potassium Chloride Carbon Dioxide Anion Gap BUN Creatinine Est GFR ( Amer) Est GFR (Non-Af Amer) Glucose Lactic Acid Calcium Magnesium Impressions: Fluoroscopy 10/12/17 00:00 IMPRESSION: IMAGE(S) OBTAINED DURING PROCEDURE. Retrograde Pyelogram 10/12/17 00:00 IMPRESSION: IMAGE(S) OBTAINED DURING PROCEDURE. Limited or Localized CT 10/12/17 18:47 IMPRESSION: 1. Left obstructive uropathy, at least moderate hydronephrosis due to a sizable distal left ureteral stone measuring almost 8 mm. There may be additional tiny distal ureteral stones as well. 2. 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 This may also explain calcifications in the abdominopelvic cavity. Chest X-Ray 10/13/17 06:06 IMPRESSION: 1. Endotracheal tube and NG tube in appropriate radiographic position. Otherwise stable appearance of the chest. Assessment & Plan - Diagnosis (1) Sepsis Qualifiers: Sepsis type: sepsis due to unspecified organism Qualified Code(s): A41.9 - Sepsis, unspecified organism Is this a current diagnosis for this admission?: Yes Plan: Patient is septic related to an infected left ureteral stone. She has been to the OR with urology, stent placed. Afshin pus returned. Patient is now mechanically ventilated for possible aspiration in the OR. He is on Vanco and cefepime. Her lactic acid is normal now at 1.3 she was on levo fed earlier but this has been weaned off. Has undergone fluid resuscitation and is now on the fluids. She is also on steroids secondary to chronic steroid use and sepsis. (2) Aspiration into airway Is this a current diagnosis for this admission?: Yes Plan: Possible aspiration in the OR. For this reason she was kept intubated postoperatively. She is being broadly covered with antibiotics at this point and we hope for extubation tomorrow. She is on minimal vent settings. (3) Acute respiratory failure Is this a current diagnosis for this admission?: Yes Plan: Please see aspiration into airway above. Dr. Franco has been consulted to manage the ventilator. I spoke with him today. She did well on a pressure support trial today. He will reassess her tomorrow after ABG and chest x-ray. The hope is for extubation tomorrow. (4) Acute renal failure superimposed on stage 3 chronic kidney disease Qualifiers: Acute renal failure type: unspecified Qualified Code(s): N17.9 - Acute kidney failure, unspecified; N18.3 - Chronic kidney disease, stage 3 (moderate) ; N18.3 - Chronic kidney disease, stage 3 (moderate) Is this a current diagnosis for this admission?: Yes Plan: Secondary to infected left ureteral stone. She is on vancomycin and cefepime. Creatinine is 2, her baseline is unknown to me. Toribio catheter is in place. There is no hematuria. Pus is resolving. Urine culture is growing gram- negative rods. (5) Left ureteral stone Is this a current diagnosis for this admission?: Yes Plan: Patient has been stented. Urologist following. (6) Rheumatoid arthritis Is this a current diagnosis for this admission?: Yes Plan: Patient will continue on hydrocortisone 50 mg IV every 12 hours. (7) UTI (urinary tract infection) Qualifiers: Urinary tract infection type: acute pyelonephritis Qualified Code(s): N10 - Acute pyelonephritis Is this a current diagnosis for this admission?: Yes Plan: Gram-negative rods growing in urine. Patient is on cefepime. - Time Time Spent with patient: 35 or more minutes Total Critical Time (Minutes): 60 - Inpatient Certification Based on my medical assessment, after consideration of the patient's comorbidities, presenting symptoms, or acuity I expect that the services needed warrant INPATIENT care.: Yes I certify that my determination is in accordance with my understanding of Medicare's requirements for reasonable and necessary INPATIENT services [42 CFR 412.3e].: Yes Medical Necessity: Need Close Monitoring Due to Risk of Patient Decompensation, Need For IV Fluids, Need for Surgery, Risk of Complication if Not Cared For in Hospital
[2017-10-13] MEDS ORDERED: LACOSAMIDE 100 MG TABLET PO SCH (22:00)
[2017-10-13] MEDS: LORAZEPAM INJ 2 MG/1 ML VIAL IV PRN (22:13)
[2017-10-14] MEDS: PROPOFOL 100 ML IV PRN ×2 (00:22→03:09)
[2017-10-14 04:47] LABS: ALANINE AMINOTRANSFERASE 34 U/L (9-52); ALBUMIN 2.7 g/dL (3.5-5.0); ALKALINE PHOSPHATASE 53 U/L (38-126); ANION GAP 13 (5-19); ASPARTATE AMINO TRANSFERASE 34 U/L (14-36); BILIRUBIN,DIRECT 0.2 mg/dL (0.0-0.4); BILIRUBIN,TOTAL 0.2 mg/dL (0.2-1.3); BLOOD UREA NITROGEN 35 mg/dL (7-20); CALCIUM 7.9 mg/dL (8.4-10.2); CARBON DIOXIDE 15 mmol/L (22-30); CHLORIDE 122 mmol/L (98-107); GLUCOSE 120 mg/dL (75-110); POTASSIUM 3.4 mmol/L (3.6-5.0); SODIUM 150.3 mmol/L (137-145); TOTAL PROTEIN 4.7 g/dL (6.3-8.2)
[2017-10-14 04:50] LABS: HEMATOCRIT 27.2 % (36.0-47.0); HEMOGLOBIN 9.1 g/dL (12.0-15.5); MEAN CORPUSCULAR HEMOGLOBIN 32.2 pg (27.0-33.4); MEAN CORPUSCULAR HGB CONC 33.5 g/dL (32.0-36.0); MEAN CORPUSCULAR VOLUME 96 fl (80-97); PLATELET COUNT 115 10^3/uL (150-450); RED BLOOD COUNT 2.83 10^6/uL (3.72-5.28); RED CELL DISTRIBUTION WIDTH 15.4 % (11.5-14.0); WHITE BLOOD COUNT 29.5 10^3/uL (4.0-10.5)
[2017-10-14 05:15] LABS: ARTERIAL BLOOD BASE EXCESS -7.9 mmol/L; ARTERIAL BLOOD H2CO3 0.81 mmol/L (1.05-1.35); ARTERIAL BLOOD HCO3 15.8 mmol/L (20-26); ARTERIAL BLOOD O2 SATURATION 96.8 % (94-98); ARTERIAL BLOOD PCO2 26.9 mmHg (35-45); ARTERIAL BLOOD PH 7.39 (7.35-7.45); ARTERIAL BLOOD TOTAL CO2 16.6 mmol/L (21-25)
[2017-10-14 05:22] LABS: ARTERIAL BLOOD FIO2 30%
[2017-10-14 05:51] LABS: ABSOLUTE MONOCYTES # (MANUAL) 1.8 10^3/uL (0.1-1.4); ABSOLUTE NEUTROPHILS# (MANUAL) 27.7 10^3/uL (1.7-8.2); BASOPHILS % (MANUAL) 0 % (0-2); EOSINOPHILS % (MANUAL) 0 % (0-6); LYMPHOCYTES % (MANUAL) 0 % (13-45); MONOCYTES % (MANUAL) 6 % (3-13); SEGMENTED NEUTROPHILS % (MAN) 94 % (42-78); TOTAL CELLS COUNTED 100
[2017-10-14 05:52] LABS: ANISOCYTOSIS SLIGHT
[2017-10-14 05:53] LABS: BURR CELLS SLIGHT; PLATELET COMMENT ADEQUATE; TEAR DROP CELLS SLIGHT
[2017-10-14] MEDS: METRONIDAZOLE 500 MG/NS RTU 100 ML IV SCH ×4 (06:00→23:55)
[2017-10-14] MEDS: HEPARIN SOD (PORCINE) 5,000 UNIT/ML 1 ML SYRINGE SUBCUT SCH ×3 (06:00→21:53)
--- NOTE | 2017-10-14 08:03 | PDOC CONSULTATION ---
Consultation Consult Date: 10/13/17 Attending physician:: AD HARRELL Consult reason:: sepsis History of Present Illness Admission Date/PCP: 10/12/17 21:18 History of Present Illness: JUDY JAMES is a 82 year old female with history of rheumatoid arthritis (on Plaquenil and prednisone 5 mg daily), disc herniation (post recent L3-L4 surgery on 05/2017) and nephrolithiasis (with nonfunctional right kidney) was admitted with above-mentioned complaints. The patient is currently sleepy after she received 0.5 mg IV Dilaudid x1 in the ED, so most of the history was obtained from her daughter (who is a nurse @ [facility]) at bedside. According to her daughter, the patient passed a kidney stone on 10/09/2017 but she never complained of any pain. But at about 11 AM while at [facility] today, she complained of feeling nauseous and vomited once. The the vomitus was nonbloody. She also was complaining of left flank pain radiating down to her groin. Her daughter gave her some Zofran with some relief. But since the patient was still uncomfortable, they decided to bring her to the hospital for further management and treatment. There was no report of any fever, chills, chest pain, worsening shortness of breath, cough, diarrhea or dysuria, hematuria. In the ED, her temperature was 98.7, heart rate 114, respiratory rate 22, blood pressure 166/88 with oxygen saturation of 96% on room air. Her WBC was 8.7 and her hemoglobin was 13.0. Lactic acid was 4.6. An abdominal CAT scan was done which showed left obstructive uropathy with hydronephrosis and distal left ureteral stone measuring about 8 mm. 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 She received 1 g Rocephin 1 and urology was consulted who is planning to take her to OR tonight. 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 GI Medical History: Reports: Gastroesophageal Reflux Disease Denies: Cirrhosis, Diverticulitis, Ulcerative Colitis Musculoskeltal Medical History: Reports: Arthritis - rheumatoid., Gout, Other - radiculopathy and right leg numbness pre daughter, right knee meniscal tear Past Surgical History Past Surgical History: Reports: Appendectomy, Hysterectomy, Orthopedic Surgery - L3-L4 back surgery in 05/2017., Tonsillectomy, Vascular Surgery - renal hepatic artery bypass on the right., Other - abdominal hernia repair; multiple D &Cs. Social History Lives with: Family Smoking Status: Never Smoker Frequency of Alcohol Use: None Hx Recreational Drug Use: No Drugs: None Hx Prescription Drug Abuse: No - Advance Directive Resuscitation Status: Full Code Family History Family History: Reviewed & Not Pertinent Parental Family History Reviewed: No Children Family History Reviewed: No Sibling(s) Family History Reviewed.: No Medication/Allergy Home Medications: Allopurinol [Zyloprim 300 mg Tablet] 150 mg PO BID 10/13/17 Diclofenac Sodium [Voltaren] 1 gm TOP QID 10/13/17 Gemfibrozil [Lopid] 600 mg PO BID 10/13/17 Hydroxychloroquine Sulfate [Plaquenil 200 mg Tablet] 200 mg PO DAILY 10/13/17 Omeprazole 20 mg PO DAILY 10/13/17 Prednisone [Deltasone 5 mg Tablet] 5 mg PO DAILY 10/13/17 Pregabalin [Lyrica 75 mg Capsule] 75 mg PO Q8 10/13/17 Allergies/Adverse Reactions: levofloxacin Allergy (Intermediate, Verified 10/13/17 01:35) Hallucinations cephalexin Allergy (Verified 10/13/17 01:35) Confusion fenofibrate [From Tricor] Allergy (Verified 10/12/17 15:38) indomethacin [From Indocin] Allergy (Verified 10/12/17 15:38) Vomiting oxycodone [From Percocet] Allergy (Verified 10/12/17 15:38) Hallucinations Penicillins Allergy (Verified 10/13/17 01:35) Anaphylaxis simvastatin [From Zocor] Allergy (Verified 10/13/17 01:35) weakness tramadol [From Ultram] Allergy (Verified 10/12/17 15:38) Vomiting gabapentin Adverse Reaction (Intermediate, Verified 10/13/17 08:35) Dizziness acetaminophen [From Percocet] Adverse Reaction (Verified 10/12/17 15:38) Hallucinations Review of Systems ROS unobtainable: Due to endotracheal tube Physical Exam Vital Signs: Temp Pulse Resp BP Pulse Ox 98.1 F 104 H 15 105/47 L 98 10/13/17 07:52 10/13/17 07:52 10/13/17 07:52 10/13/17 07:52 10/13/17 07:52 Intake & Output 10/12/17 10/13/17 10/14/17 06:59 06:59 06:59 Intake Total 4842 Output Total 1250 150 Balance 3592 -150 Weight 81.5 kg General appearance: PRESENT: no acute distress, disheveled, obese, well- developed. ABSENT: cooperative Head exam: PRESENT: atraumatic, normocephalic Eye exam: PRESENT: conjunctiva pale. ABSENT: EOMI, nystagmus, periorbital swelling, scleral icterus Mouth exam: PRESENT: dry mucosa, neck supple, tongue midline, other - ET tube Neck exam: ABSENT: carotid bruit, JVD, lymphadenopathy, thyromegaly, tracheal deviation, tracheostomy Respiratory exam: PRESENT: decreased breath sounds, prolonged expiratory phas, rhonchi, symmetrical, unlabored. ABSENT: retraction, stridor, tachypnea Cardiovascular exam: PRESENT: RRR, +S1, +S2 Pulses: PRESENT: normal radial pulses GI/Abdominal exam: PRESENT: other - s/p surgery Gentrourinary exam: PRESENT: indwelling catheter Extremities exam: ABSENT: calf tenderness, clubbing, joint swelling Musculoskeletal exam: ABSENT: ambulatory, deformity, dislocation Neurological exam: ABSENT: alert, awake Skin exam: PRESENT: dry, warm Results Laboratory Results: 10/13/17 07:35 10/13/17 06:10 10/12/17 10/13/17 10/13/17 23:49 06:10 06:10 WBC Cancelled RBC Cancelled Hgb Cancelled Hct Cancelled MCV Cancelled MCH Cancelled MCHC Cancelled RDW Cancelled Plt Count Cancelled Seg Neutrophils % Lymphocytes % Monocytes % Eosinophils % Basophils % Absolute Neutrophils Absolute Lymphocytes Absolute Monocytes Absolute Eosinophils Absolute Basophils Carbonic Acid HCO3/H2CO3 Ratio ABG pH ABG pCO2 ABG pO2 ABG HCO3 ABG O2 Saturation ABG Base Excess FiO2 Sodium Potassium Chloride Carbon Dioxide Anion Gap BUN Creatinine Est GFR ( Amer) Est GFR (Non-Af Amer) Glucose Lactic Acid 4.0 H 3.5 H Calcium 10/13/17 10/13/17 10/13/17 06:10 06:45 07:35 WBC 67.0 H* D RBC 3.11 L Hgb 10.0 L D Hct 30.3 L MCV 97 MCH 32.0 MCHC 32.9 RDW 15.9 H Plt Count 148 L Seg Neutrophils % Not Reportable Lymphocytes % Not Reportable Monocytes % Not Reportable Eosinophils % Not Reportable Basophils % Not Reportable Absolute Neutrophils Not Reportable Absolute Lymphocytes Not Reportable Absolute Monocytes Not Reportable Absolute Eosinophils Not Reportable Absolute Basophils Not Reportable Carbonic Acid 0.91 L HCO3/H2CO3 Ratio 17:1 ABG pH 7.35 ABG pCO2 30.1 L ABG pO2 78.9 L ABG HCO3 16.3 L ABG O2 Saturation 95.4 ABG Base Excess -8.2 FiO2 40% Sodium 143.1 Potassium 3.5 L Chloride 112 H Carbon Dioxide 15 L Anion Gap 16 BUN 50 H Creatinine 2.08 H Est GFR ( Amer) 28 L Est GFR (Non-Af Amer) 23 L Glucose 82 Lactic Acid Calcium 8.2 L Impressions: Fluoroscopy 10/12/17 00:00 IMPRESSION: IMAGE(S) OBTAINED DURING PROCEDURE. Retrograde Pyelogram 10/12/17 00:00 IMPRESSION: IMAGE(S) OBTAINED DURING PROCEDURE. Limited or Localized CT 10/12/17 18:47 IMPRESSION: 1. Left obstructive uropathy, at least moderate hydronephrosis due to a sizable distal left ureteral stone measuring almost 8 mm. There may be additional tiny distal ureteral stones as well. 2. 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 This may also explain calcifications in the abdominopelvic cavity. Chest X-Ray 10/13/17 06:06 IMPRESSION: 1. Endotracheal tube and NG tube in appropriate radiographic position. Otherwise stable appearance of the chest. Assessment & Plan - Diagnosis (1) Acute renal failure superimposed on stage 3 chronic kidney disease Qualifiers: Acute renal failure type: unspecified Qualified Code(s): N17.9 - Acute kidney failure, unspecified; N18.3 - Chronic kidney disease, stage 3 (moderate) ; N18.3 - Chronic kidney disease, stage 3 (moderate) Is this a current diagnosis for this admission?: Yes Plan: obstruction (2) Acute respiratory failure Is this a current diagnosis for this admission?: Yes Plan: metaboliic acidosis oxygenation well (3) Left ureteral stone Is this a current diagnosis for this admission?: Yes Plan: stent per Urology (4) Sepsis Qualifiers: Sepsis type: sepsis due to unspecified organism Qualified Code(s): A41.9 - Sepsis, unspecified organism Is this a current diagnosis for this admission?: Yes Plan: supportive - Time Total Critical Time (Minutes): 55
--- NOTE | 2017-10-14 08:48 | RADIOLOGY REPORT (SQ) ---
EXAM DESCRIPTION: CHEST SINGLE VIEW COMPLETED DATE/TIME: 10/14/2017 6:33 am REASON FOR STUDY: resp failure COMPARISON: 10/13/2017. NUMBER OF VIEWS: One view. TECHNIQUE: Single frontal radiographic view of the chest acquired. LIMITATIONS: None. FINDINGS: LUNGS AND PLEURA: Scattered linear atelectasis versus scarring in the right lung base. MEDIASTINUM AND HILAR STRUCTURES: No masses. Contour normal. HEART AND VASCULAR STRUCTURES: Heart enlarged without failure. Normal vasculature. BONES: No acute findings. HARDWARE: Endotracheal tube with the tip located 4.5 cm proximal to the isabella. Nasogastric tube wit h tip located in the stomach. OTHER: No other significant finding. IMPRESSION: STABLE CARDIOMEGALY. MILD ATELECTASIS VERSUS SCARRING IN THE RIGHT LUNG BASE. TECHNICAL DOCUMENTATION: JOB ID: [id number] [employer]- All Rights Reserved Reading location - IP/workstation name: [email or web address]
--- NOTE | 2017-10-14 09:03 | PDOC PROGRESS REPORT ---
Subjective Progress Note for:: 10/14/17 Subjective:: Pt seen; examined. Remains intubated but responsive. Weaning Levophed. Creatinine improving and WBC trending down. UOP excellent. Reason For Visit: SEVERE SEPSIS, UTI Physical Exam Vital Signs: Temp Pulse Resp BP Pulse Ox 97.5 F 84 22 H 153/78 H 99 10/14/17 08:00 10/14/17 08:00 10/14/17 08:00 10/14/17 08:00 10/14/17 08:00 Intake & Output 10/13/17 10/14/17 10/15/17 06:59 06:59 06:59 Intake Total 4842 3996 Output Total 1250 4115 280 Balance 3592 -119 -280 Weight 81.5 kg 82.5 kg General appearance: PRESENT: other - intubated Head exam: PRESENT: atraumatic Eye exam: PRESENT: conjunctiva pink Ear exam: PRESENT: normal external ear exam Mouth exam: PRESENT: other - ETT Neck exam: ABSENT: JVD Respiratory exam: PRESENT: other - vented Cardiovascular exam: PRESENT: RRR. ABSENT: bradycardia Pulses: PRESENT: normal radial pulses GI/Abdominal exam: PRESENT: soft. ABSENT: distended, tenderness Rectal exam: PRESENT: deferred Gentrourinary exam: ABSENT: lesions Neurological exam: PRESENT: other - sedated but previously responding to commands and communicating. Results Laboratory Results: 10/14/17 03:57 10/14/17 03:57 10/13/17 10/13/17 10/13/17 06:10 13:23 16:14 WBC 45.5 H* RBC 3.16 L Hgb 9.9 L Hct 30.9 L MCV 98 H MCH 31.5 MCHC 32.1 RDW 15.9 H Plt Count 133 L Seg Neutrophils % Lymphocytes % Monocytes % Eosinophils % Basophils % Absolute Neutrophils Absolute Lymphocytes Absolute Monocytes Absolute Eosinophils Absolute Basophils Carbonic Acid HCO3/H2CO3 Ratio ABG pH ABG pCO2 ABG pO2 ABG HCO3 ABG O2 Saturation ABG Base Excess FiO2 Sodium Potassium Chloride Carbon Dioxide Anion Gap BUN Creatinine Est GFR ( Amer) Est GFR (Non-Af Amer) Glucose Lactic Acid 1.4 Calcium Magnesium 1.4 L Total Bilirubin AST ALT Alkaline Phosphatase Total Protein Albumin 10/13/17 10/14/17 10/14/17 17:25 03:57 03:57 WBC 29.5 H RBC 2.83 L Hgb 9.1 L Hct 27.2 L MCV 96 MCH 32.2 MCHC 33.5 RDW 15.4 H Plt Count 115 L Seg Neutrophils % Not Reportable Lymphocytes % Not Reportable Monocytes % Not Reportable Eosinophils % Not Reportable Basophils % Not Reportable Absolute Neutrophils Not Reportable Absolute Lymphocytes Not Reportable Absolute Monocytes Not Reportable Absolute Eosinophils Not Reportable Absolute Basophils Not Reportable Carbonic Acid 0.85 L HCO3/H2CO3 Ratio 20:1 ABG pH 7.41 ABG pCO2 28.2 L ABG pO2 83.9 ABG HCO3 17.6 L ABG O2 Saturation 96.6 ABG Base Excess -6.1 FiO2 30% Sodium 150.3 H Potassium 3.4 L Chloride 122 H Carbon Dioxide 15 L Anion Gap 13 BUN 35 H Creatinine 1.37 H Est GFR ( Amer) 45 L Est GFR (Non-Af Amer) 37 L Glucose 120 H Lactic Acid Calcium 7.9 L Magnesium 2.3 Total Bilirubin 0.2 AST 34 ALT 34 Alkaline Phosphatase 53 Total Protein 4.7 L Albumin 2.7 L 10/14/17 04:50 WBC RBC Hgb Hct MCV MCH MCHC RDW Plt Count Seg Neutrophils % Lymphocytes % Monocytes % Eosinophils % Basophils % Absolute Neutrophils Absolute Lymphocytes Absolute Monocytes Absolute Eosinophils Absolute Basophils Carbonic Acid 0.81 L HCO3/H2CO3 Ratio 19:1 ABG pH 7.39 ABG pCO2 26.9 L ABG pO2 88.0 ABG HCO3 15.8 L ABG O2 Saturation 96.8 ABG Base Excess -7.9 FiO2 30% Sodium Potassium Chloride Carbon Dioxide Anion Gap BUN Creatinine Est GFR ( Amer) Est GFR (Non-Af Amer) Glucose Lactic Acid Calcium Magnesium Total Bilirubin AST ALT Alkaline Phosphatase Total Protein Albumin Impressions: Fluoroscopy 10/12/17 00:00 IMPRESSION: IMAGE(S) OBTAINED DURING PROCEDURE. Retrograde Pyelogram 10/12/17 00:00 IMPRESSION: IMAGE(S) OBTAINED DURING PROCEDURE. Limited or Localized CT 10/12/17 18:47 IMPRESSION: 1. Left obstructive uropathy, at least moderate hydronephrosis due to a sizable distal left ureteral stone measuring almost 8 mm. There may be additional tiny distal ureteral stones as well. 2. 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 This may also explain calcifications in the abdominopelvic cavity. Chest X-Ray 10/14/17 06:00 IMPRESSION: STABLE CARDIOMEGALY. MILD ATELECTASIS VERSUS SCARRING IN THE RIGHT LUNG BASE. Assessment & Plan - Diagnosis (1) Septic shock Is this a current diagnosis for this admission?: Yes (2) Hydronephrosis with renal and ureteral calculous obstruction Is this a current diagnosis for this admission?: Yes (3) UTI (urinary tract infection) Qualifiers: Urinary tract infection type: acute pyelonephritis Qualified Code(s): N10 - Acute pyelonephritis Is this a current diagnosis for this admission?: Yes - Time Total Critical Time (Minutes): 105 - Not inclusive of procedure. - Inpatient Certification Based on my medical assessment, after consideration of the patient's comorbidities, presenting symptoms, or acuity I expect that the services needed warrant INPATIENT care.: Yes I certify that my determination is in accordance with my understanding of Medicare's requirements for reasonable and necessary INPATIENT services [42 CFR 412.3e].: Yes Medical Necessity: Need Close Monitoring Due to Risk of Patient Decompensation, Need For IV Fluids, Need for IV Antibiotics, Need for Surgery - Plan Summary Plan Summary: Appreciate ICU cares. Continue broad spectrum antibiotics pending culture susceptibilities (GNR). Wean vent/wean Levo as tolerated. Continue paulino for strict I&Os. Pt has indwelling left ureteral stent in functional solitary kidney and will need to undergo definitive stone removal when medically stable (no sooner than 2 wks). She can follow up with [facility] or closer to home ([place]).
[2017-10-14] MEDS: CEFEPIME 1 GM/D5W RTU 1 GM/50 ML RTUPB IV SCH ×2 (10:18→21:52)
[2017-10-14] MEDS: HYDROCORTISONE SOD SUCCINATE INJ/PF 100 MG/2 ML SDV IV SCH ×2 (10:19→21:53)
[2017-10-14] MEDS: POTASSIUM CHLORIDE 20 MEQ/50 ML RTU IV SCH ×2 (10:19→12:06)
--- NOTE | 2017-10-14 10:24 | PDOC PROGRESS REPORT ---
Subjective Progress Note for:: 10/14/17 Subjective:: Patient admitted with severe sepsis and UTI secondary to infected ureteral stone. She is currently intubated secondary to possible aspiration in the OR. I am unable to obtain any information due to her intubation. Reason For Visit: SEVERE SEPSIS, UTI Physical Exam Vital Signs: Temp Pulse Resp BP Pulse Ox 97.5 F 82 18 157/78 H 100 10/14/17 08:00 10/14/17 09:18 10/14/17 09:18 10/14/17 09:18 10/14/17 09:18 Intake & Output 10/13/17 10/14/17 10/15/17 06:59 06:59 06:59 Intake Total 4842 3996 Output Total 1250 4115 280 Balance 3592 -119 -280 Weight 81.5 kg 82.5 kg General appearance: PRESENT: no acute distress - intubated and sedated Head exam: PRESENT: atraumatic Neck exam: ABSENT: carotid bruit, JVD, lymphadenopathy, thyromegaly Respiratory exam: PRESENT: other - mechanical ventilation GI/Abdominal exam: PRESENT: normal bowel sounds, soft. ABSENT: distended, guarding, mass, organolmegaly, rebound, tenderness Rectal exam: PRESENT: deferred Extremities exam: PRESENT: full ROM. ABSENT: calf tenderness - sedated, clubbing, pedal edema Neurological exam: PRESENT: other Results Laboratory Results: 10/14/17 03:57 10/14/17 03:57 10/13/17 10/13/17 10/13/17 06:10 13:23 16:14 WBC 45.5 H* RBC 3.16 L Hgb 9.9 L Hct 30.9 L MCV 98 H MCH 31.5 MCHC 32.1 RDW 15.9 H Plt Count 133 L Seg Neutrophils % Lymphocytes % Monocytes % Eosinophils % Basophils % Absolute Neutrophils Absolute Lymphocytes Absolute Monocytes Absolute Eosinophils Absolute Basophils Carbonic Acid HCO3/H2CO3 Ratio ABG pH ABG pCO2 ABG pO2 ABG HCO3 ABG O2 Saturation ABG Base Excess FiO2 Sodium Potassium Chloride Carbon Dioxide Anion Gap BUN Creatinine Est GFR ( Amer) Est GFR (Non-Af Amer) Glucose Lactic Acid 1.4 Calcium Magnesium 1.4 L Total Bilirubin AST ALT Alkaline Phosphatase Total Protein Albumin 10/13/17 10/14/17 10/14/17 17:25 03:57 03:57 WBC 29.5 H RBC 2.83 L Hgb 9.1 L Hct 27.2 L MCV 96 MCH 32.2 MCHC 33.5 RDW 15.4 H Plt Count 115 L Seg Neutrophils % Not Reportable Lymphocytes % Not Reportable Monocytes % Not Reportable Eosinophils % Not Reportable Basophils % Not Reportable Absolute Neutrophils Not Reportable Absolute Lymphocytes Not Reportable Absolute Monocytes Not Reportable Absolute Eosinophils Not Reportable Absolute Basophils Not Reportable Carbonic Acid 0.85 L HCO3/H2CO3 Ratio 20:1 ABG pH 7.41 ABG pCO2 28.2 L ABG pO2 83.9 ABG HCO3 17.6 L ABG O2 Saturation 96.6 ABG Base Excess -6.1 FiO2 30% Sodium 150.3 H Potassium 3.4 L Chloride 122 H Carbon Dioxide 15 L Anion Gap 13 BUN 35 H Creatinine 1.37 H Est GFR ( Amer) 45 L Est GFR (Non-Af Amer) 37 L Glucose 120 H Lactic Acid Calcium 7.9 L Magnesium 2.3 Total Bilirubin 0.2 AST 34 ALT 34 Alkaline Phosphatase 53 Total Protein 4.7 L Albumin 2.7 L 10/14/17 04:50 WBC RBC Hgb Hct MCV MCH MCHC RDW Plt Count Seg Neutrophils % Lymphocytes % Monocytes % Eosinophils % Basophils % Absolute Neutrophils Absolute Lymphocytes Absolute Monocytes Absolute Eosinophils Absolute Basophils Carbonic Acid 0.81 L HCO3/H2CO3 Ratio 19:1 ABG pH 7.39 ABG pCO2 26.9 L ABG pO2 88.0 ABG HCO3 15.8 L ABG O2 Saturation 96.8 ABG Base Excess -7.9 FiO2 30% Sodium Potassium Chloride Carbon Dioxide Anion Gap BUN Creatinine Est GFR ( Amer) Est GFR (Non-Af Amer) Glucose Lactic Acid Calcium Magnesium Total Bilirubin AST ALT Alkaline Phosphatase Total Protein Albumin Impressions: Fluoroscopy 10/12/17 00:00 IMPRESSION: IMAGE(S) OBTAINED DURING PROCEDURE. Retrograde Pyelogram 10/12/17 00:00 IMPRESSION: IMAGE(S) OBTAINED DURING PROCEDURE. Limited or Localized CT 10/12/17 18:47 IMPRESSION: 1. Left obstructive uropathy, at least moderate hydronephrosis due to a sizable distal left ureteral stone measuring almost 8 mm. There may be additional tiny distal ureteral stones as well. 2. 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 This may also explain calcifications in the abdominopelvic cavity. Chest X-Ray 10/14/17 06:00 IMPRESSION: STABLE CARDIOMEGALY. MILD ATELECTASIS VERSUS SCARRING IN THE RIGHT LUNG BASE. Assessment & Plan - Time Time Spent with patient: 15-24 minutes Medications reviewed and adjusted accordingly: Yes Anticipated discharge: Home Within: within 72 hours - Inpatient Certification Based on my medical assessment, after consideration of the patient's comorbidities, presenting symptoms, or acuity I expect that the services needed warrant INPATIENT care.: Yes Medical Necessity: Need Close Monitoring Due to Risk of Patient Decompensation, Need for IV Antibiotics - Plan Summary Plan Summary: Sepsis likely related to infected left urolithiasis. She is status post stent placement and continues on vancomycin and cefepime. She has been weaned off Levophed. 2. Aspiration pneumonia possibly while in the OR. She is still on mechanical ventilation but will be weaned off and extubated as appropriate. 3. Acute respiratory failure secondary to above 4. Acute renal failure superimposed on chronic kidney disease stage III. AK I likely secondary to sepsis as well as obstruction from the urolithiasis. 5. Left ureteral stone status post stent placement. Appreciate urology input 6. Rheumatoid arthritis on chronic steroid with high steroid dose increased to a stress dose 7. Urinary tract infection secondary to gram-negative rods. Will follow cultures and de-escalate antibiotics as appropriate
--- NOTE | 2017-10-14 15:22 | PDOC PROGRESS REPORT ---
Subjective Progress Note for:: 10/14/17 Subjective:: Intubated unresponsive Reason For Visit: SEVERE SEPSIS, UTI Physical Exam Vital Signs: Temp Pulse Resp BP Pulse Ox 97.6 F 78 16 153/77 H 98 10/14/17 06:00 10/13/17 20:00 10/14/17 07:31 10/14/17 07:31 10/14/17 07:31 Intake & Output 10/13/17 10/14/17 10/15/17 06:59 06:59 06:59 Intake Total 4842 3996 Output Total 1250 4115 Balance 3592 -119 Weight 81.5 kg 82.5 kg General appearance: PRESENT: no acute distress, disheveled, obese. ABSENT: cooperative Head exam: PRESENT: atraumatic, normocephalic Eye exam: PRESENT: conjunctiva pale. ABSENT: nystagmus, periorbital swelling, scleral icterus Mouth exam: PRESENT: dry mucosa, neck supple, tongue midline, other - ET tube in place Neck exam: ABSENT: carotid bruit, JVD, lymphadenopathy, thyromegaly, tracheal deviation, tracheostomy Respiratory exam: PRESENT: decreased breath sounds, prolonged expiratory phas, rhonchi, symmetrical, unlabored. ABSENT: crackles, rales, retraction, stridor, tachypnea Cardiovascular exam: PRESENT: RRR, +S1, +S2 Pulses: PRESENT: normal radial pulses GI/Abdominal exam: PRESENT: other - Status post surgery Extremities exam: ABSENT: calf tenderness, clubbing, joint swelling Musculoskeletal exam: ABSENT: ambulatory, deformity, dislocation Neurological exam: PRESENT: awake, oriented to person Skin exam: PRESENT: dry, warm Results Laboratory Results: 10/14/17 03:57 10/14/17 03:57 10/13/17 10/13/17 10/13/17 06:10 07:35 13:23 WBC 67.0 H* D 45.5 H* RBC 3.11 L 3.16 L Hgb 10.0 L D 9.9 L Hct 30.3 L 30.9 L MCV 97 98 H MCH 32.0 31.5 MCHC 32.9 32.1 RDW 15.9 H 15.9 H Plt Count 148 L 133 L Seg Neutrophils % Not Reportable Lymphocytes % Not Reportable Monocytes % Not Reportable Eosinophils % Not Reportable Basophils % Not Reportable Absolute Neutrophils Not Reportable Absolute Lymphocytes Not Reportable Absolute Monocytes Not Reportable Absolute Eosinophils Not Reportable Absolute Basophils Not Reportable Carbonic Acid HCO3/H2CO3 Ratio ABG pH ABG pCO2 ABG pO2 ABG HCO3 ABG O2 Saturation ABG Base Excess FiO2 Sodium Potassium Chloride Carbon Dioxide Anion Gap BUN Creatinine Est GFR ( Amer) Est GFR (Non-Af Amer) Glucose Lactic Acid Calcium Magnesium 1.4 L Total Bilirubin AST ALT Alkaline Phosphatase Total Protein Albumin 10/13/17 10/13/17 10/14/17 16:14 17:25 03:57 WBC 29.5 H RBC 2.83 L Hgb 9.1 L Hct 27.2 L MCV 96 MCH 32.2 MCHC 33.5 RDW 15.4 H Plt Count 115 L Seg Neutrophils % Not Reportable Lymphocytes % Not Reportable Monocytes % Not Reportable Eosinophils % Not Reportable Basophils % Not Reportable Absolute Neutrophils Not Reportable Absolute Lymphocytes Not Reportable Absolute Monocytes Not Reportable Absolute Eosinophils Not Reportable Absolute Basophils Not Reportable Carbonic Acid 0.85 L HCO3/H2CO3 Ratio 20:1 ABG pH 7.41 ABG pCO2 28.2 L ABG pO2 83.9 ABG HCO3 17.6 L ABG O2 Saturation 96.6 ABG Base Excess -6.1 FiO2 30% Sodium Potassium Chloride Carbon Dioxide Anion Gap BUN Creatinine Est GFR ( Amer) Est GFR (Non-Af Amer) Glucose Lactic Acid 1.4 Calcium Magnesium Total Bilirubin AST ALT Alkaline Phosphatase Total Protein Albumin 10/14/17 10/14/17 03:57 04:50 WBC RBC Hgb Hct MCV MCH MCHC RDW Plt Count Seg Neutrophils % Lymphocytes % Monocytes % Eosinophils % Basophils % Absolute Neutrophils Absolute Lymphocytes Absolute Monocytes Absolute Eosinophils Absolute Basophils Carbonic Acid 0.81 L HCO3/H2CO3 Ratio 19:1 ABG pH 7.39 ABG pCO2 26.9 L ABG pO2 88.0 ABG HCO3 15.8 L ABG O2 Saturation 96.8 ABG Base Excess -7.9 FiO2 30% Sodium 150.3 H Potassium 3.4 L Chloride 122 H Carbon Dioxide 15 L Anion Gap 13 BUN 35 H Creatinine 1.37 H Est GFR ( Amer) 45 L Est GFR (Non-Af Amer) 37 L Glucose 120 H Lactic Acid Calcium 7.9 L Magnesium 2.3 Total Bilirubin 0.2 AST 34 ALT 34 Alkaline Phosphatase 53 Total Protein 4.7 L Albumin 2.7 L Impressions: Fluoroscopy 10/12/17 00:00 IMPRESSION: IMAGE(S) OBTAINED DURING PROCEDURE. Retrograde Pyelogram 10/12/17 00:00 IMPRESSION: IMAGE(S) OBTAINED DURING PROCEDURE. Limited or Localized CT 10/12/17 18:47 IMPRESSION: 1. Left obstructive uropathy, at least moderate hydronephrosis due to a sizable distal left ureteral stone measuring almost 8 mm. There may be additional tiny distal ureteral stones as well. 2. 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 This may also explain calcifications in the abdominopelvic cavity. Assessment & Plan - Diagnosis (1) Acute renal failure superimposed on stage 3 chronic kidney disease Qualifiers: Acute renal failure type: unspecified Qualified Code(s): N17.9 - Acute kidney failure, unspecified; N18.3 - Chronic kidney disease, stage 3 (moderate) ; N18.3 - Chronic kidney disease, stage 3 (moderate) Is this a current diagnosis for this admission?: Yes Plan: obstruction (2) Acute respiratory failure Is this a current diagnosis for this admission?: Yes Plan: Minute volume, respiratory rate, FiO2 and airway pressures suggest successful extubation will extubate patient to BiPAP (3) Left ureteral stone Is this a current diagnosis for this admission?: Yes Plan: stent per Urology (4) Sepsis Qualifiers: Sepsis type: sepsis due to unspecified organism Qualified Code(s): A41.9 - Sepsis, unspecified organism Is this a current diagnosis for this admission?: Yes Plan: supportive Labs- All tests 24 hr 10/12/17 10/13/17 10/13/17 16:35 07:35 13:23 WBC 8.7 67.0 H* D 45.5 H* Band Neutrophils % 5 24 H D 10/14/17 03:57 WBC 29.5 H Band Neutrophils % 10/12/17 22:31 Urine Culture - Preliminary Catheterized Urine Gram Negative Rods 10/12/17 17:51 Urine Culture - Preliminary Catheterized Urine Gram Negative Rods - Time Total Critical Time (Minutes): 55
[2017-10-14] MEDS: VANCOMYCIN HCL 750 MG in DEXTROSE 5%-WATER 250 ML IV SCH (16:17)
[2017-10-14] MEDS: LORAZEPAM INJ 2 MG/1 ML VIAL IV PRN (21:52)
[2017-10-14] MEDS: NORMAL SALINE 1000 ML 1,000 ML IV PRN (21:54)
[2017-10-14] MEDS: FENTANYL CITRATE INJ/PF 100 MCG/2 ML AMPUL IV PRN (22:58)
[2017-10-15 04:02] LABS: HEMATOCRIT 28.3 % (36.0-47.0); HEMOGLOBIN 9.5 g/dL (12.0-15.5); MEAN CORPUSCULAR HEMOGLOBIN 32.1 pg (27.0-33.4); MEAN CORPUSCULAR HGB CONC 33.6 g/dL (32.0-36.0); MEAN CORPUSCULAR VOLUME 96 fl (80-97); PLATELET COUNT 110 10^3/uL (150-450); RED BLOOD COUNT 2.97 10^6/uL (3.72-5.28); RED CELL DISTRIBUTION WIDTH 15.8 % (11.5-14.0); WHITE BLOOD COUNT 21.9 10^3/uL (4.0-10.5)
[2017-10-15 04:13] LABS: ANION GAP 12 (5-19); BLOOD UREA NITROGEN 24 mg/dL (7-20); CALCIUM 7.9 mg/dL (8.4-10.2); CARBON DIOXIDE 16 mmol/L (22-30); CHLORIDE 126 mmol/L (98-107); GLUCOSE 116 mg/dL (75-110); POTASSIUM 3.1 mmol/L (3.6-5.0); SODIUM 153.8 mmol/L (137-145)
[2017-10-15 04:36] LABS: ABSOLUTE LYMPHOCYTES# (MANUAL) 1.5 10^3/uL (0.5-4.7); ABSOLUTE MONOCYTES # (MANUAL) 0.7 10^3/uL (0.1-1.4); ABSOLUTE NEUTROPHILS# (MANUAL) 19.7 10^3/uL (1.7-8.2); BASOPHILS % (MANUAL) 0 % (0-2); EOSINOPHILS % (MANUAL) 0 % (0-6); LYMPHOCYTES % (MANUAL) 7 % (13-45); MONOCYTES % (MANUAL) 3 % (3-13); SEGMENTED NEUTROPHILS % (MAN) 90 % (42-78); TOTAL CELLS COUNTED 100
[2017-10-15 04:37] LABS: HYPERSEGMENTED NEUTROPHILS PRESENT
[2017-10-15 04:38] LABS: ANISOCYTOSIS SLIGHT; PLATELET COMMENT DECREASED; PLATELET LARGE PRESENT; POIKILOCYTOSIS SLIGHT; TEAR DROP CELLS SLIGHT
[2017-10-15 04:39] LABS: POLYCHROMASIA SLIGHT
[2017-10-15] MEDS: HEPARIN SOD (PORCINE) 5,000 UNIT/ML 1 ML SYRINGE SUBCUT SCH ×3 (06:21→20:45)
[2017-10-15] MEDS: METRONIDAZOLE 500 MG/NS RTU 100 ML IV SCH ×4 (06:23→23:53)
[2017-10-15 06:37] LABS: ARTERIAL BLOOD BASE EXCESS -5.2 mmol/L; ARTERIAL BLOOD H2CO3 0.91 mmol/L (1.05-1.35); ARTERIAL BLOOD HCO3 18.6 mmol/L (20-26); ARTERIAL BLOOD O2 SATURATION 97.3 % (94-98); ARTERIAL BLOOD PCO2 30.1 mmHg (35-45); ARTERIAL BLOOD PH 7.41 (7.35-7.45); ARTERIAL BLOOD PO2 93.9 mmHg (80-100); ARTERIAL BLOOD TOTAL CO2 19.5 mmol/L (21-25)
[2017-10-15 06:39] LABS: ARTERIAL BLOOD FIO2 3L
--- NOTE | 2017-10-15 08:09 | RADIOLOGY REPORT (SQ) ---
EXAM DESCRIPTION: CHEST SINGLE VIEW COMPLETED DATE/TIME: 10/15/2017 6:17 am REASON FOR STUDY: resp failure COMPARISON: AP chest 10/14/2017, 10/12/2017, 10/03/2016 EXAM PARAMETERS: NUMBER OF VIEWS: One view. TECHNIQUE: Single frontal radiographic view of the chest acquired. RADIATION DOSE: NA LIMITATIONS: None. FINDINGS: LUNGS AND PLEURA: Endotracheal tube has been removed. No focal infiltrates. No pleural effusion. No pneumothorax. MEDIASTINUM AND HILAR STRUCTURES: No masses. Contour normal. HEART AND VASCULAR STRUCTURES: Stable mild cardiomegaly BONES: No acute findings. HARDWARE: None in the chest. OTHER: No other significant finding. IMPRESSION: Endotracheal tube removed. No focal infiltrates. Stable mild cardiomegaly TECHNICAL DOCUMENTATION: JOB ID: [id number]- All Rights Reserved Reading location - IP/workstation name: [email or web address]
[2017-10-15] MEDS ORDERED: LEVALBUTEROL HCL NEB 0.63 MG/3 ML AMPUL NEB PRN (08:32)
[2017-10-15] MEDS ORDERED: BUDESONIDE NEB 0.5 MG/2 ML AMPUL NEB ONE ×2 (10:00→10:30)
[2017-10-15] MEDS ORDERED: HYDRALAZINE HCL INJ/PF 20 MG/1 ML SDV IV ONE (12:30)
--- NOTE | 2017-10-15 12:47 | PDOC PROGRESS REPORT ---
Subjective Progress Note for:: 10/15/17 Subjective:: Pt seen; examined. Awake and alert, answering questions although she remains somewhat confused and tired. Denies pain. Reason For Visit: SEVERE SEPSIS, UTI Physical Exam Vital Signs: Temp Pulse Resp BP Pulse Ox 98.6 F 77 18 187/91 H 96 10/15/17 10:00 10/15/17 10:11 10/15/17 10:11 10/15/17 10:00 10/15/17 10:00 Intake & Output 10/14/17 10/15/17 10/16/17 06:59 06:59 06:59 Intake Total 3996 1151 Output Total 4116 9570 1180 Balance -119 -1584 -1180 Weight 82.5 kg 81.6 kg General appearance: PRESENT: no acute distress Head exam: PRESENT: atraumatic Eye exam: PRESENT: conjunctiva pink Ear exam: PRESENT: normal external ear exam Mouth exam: PRESENT: dry mucosa Neck exam: PRESENT: full ROM Respiratory exam: PRESENT: unlabored Cardiovascular exam: PRESENT: RRR. ABSENT: bradycardia GI/Abdominal exam: PRESENT: soft. ABSENT: ascites Rectal exam: PRESENT: deferred Gentrourinary exam: PRESENT: indwelling catheter - urine clear Neurological exam: PRESENT: alert, awake Results Laboratory Results: 10/15/17 03:50 10/15/17 03:50 10/15/17 10/15/17 10/15/17 03:50 03:50 06:15 WBC 21.9 H RBC 2.97 L Hgb 9.5 L Hct 28.3 L MCV 96 MCH 32.1 MCHC 33.6 RDW 15.8 H Plt Count 110 L Seg Neutrophils % Not Reportable Lymphocytes % Not Reportable Monocytes % Not Reportable Eosinophils % Not Reportable Basophils % Not Reportable Absolute Neutrophils Not Reportable Absolute Lymphocytes Not Reportable Absolute Monocytes Not Reportable Absolute Eosinophils Not Reportable Absolute Basophils Not Reportable Carbonic Acid 0.91 L HCO3/H2CO3 Ratio 20:1 ABG pH 7.41 ABG pCO2 30.1 L ABG pO2 93.9 ABG HCO3 18.6 L ABG O2 Saturation 97.3 ABG Base Excess -5.2 FiO2 3L Sodium 153.8 H Potassium 3.1 L Chloride 126 H Carbon Dioxide 16 L Anion Gap 12 BUN 24 H Creatinine 1.02 Est GFR ( Amer) > 60 Est GFR (Non-Af Amer) 52 L Glucose 116 H Calcium 7.9 L Magnesium 1.8 10/13/17 09:10 Tracheal Aspirate Gram Stain - Final 10/13/17 09:10 Tracheal Aspirate Sputum Culture - Final NORMAL DI 10/12/17 22:31 Catheterized Urine Urine Culture - Final Providencia Stuartii Impressions: Fluoroscopy 10/12/17 00:00 IMPRESSION: IMAGE(S) OBTAINED DURING PROCEDURE. Retrograde Pyelogram 10/12/17 00:00 IMPRESSION: IMAGE(S) OBTAINED DURING PROCEDURE. Limited or Localized CT 10/12/17 18:47 IMPRESSION: 1. Left obstructive uropathy, at least moderate hydronephrosis due to a sizable distal left ureteral stone measuring almost 8 mm. There may be additional tiny distal ureteral stones as well. 2. 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 This may also explain calcifications in the abdominopelvic cavity. Chest X-Ray 10/15/17 06:00 IMPRESSION: Endotracheal tube removed. No focal infiltrates. Stable mild cardiomegaly Assessment & Plan - Diagnosis (1) Septic shock Is this a current diagnosis for this admission?: Yes (2) Hydronephrosis with renal and ureteral calculous obstruction Is this a current diagnosis for this admission?: Yes Plan: Appreciate ICU cares. Transfer out of ICU when meets criteria. Continue broad spectrum antibiotics pending culture susceptibilities. Continue paulino for strict I&Os. May d/c when pt ambulatory. Pt has indwelling left ureteral stent in functional solitary kidney and will need to undergo definitive stone removal when medically stable (no sooner than 2 wks). She can follow up with [facility] or closer to home ([facility]). (3) UTI (urinary tract infection) Qualifiers: Urinary tract infection type: acute pyelonephritis Qualified Code(s): N10 - Acute pyelonephritis Is this a current diagnosis for this admission?: Yes - Inpatient Certification Based on my medical assessment, after consideration of the patient's comorbidities, presenting symptoms, or acuity I expect that the services needed warrant INPATIENT care.: Yes I certify that my determination is in accordance with my understanding of Medicare's requirements for reasonable and necessary INPATIENT services [42 CFR 412.3e].: Yes Medical Necessity: Failure to Improve With Outpatient Therapy, Need For IV Fluids, Need For Continuous Telemetry Monitoring, Need for IV Antibiotics, Need for Surgery - Plan Summary Plan Summary: See A&P
[2017-10-15] MEDS ORDERED: HYDRALAZINE HCL INJ/PF 20 MG/1 ML SDV IV PRN (12:56)
[2017-10-15] MEDS: PREGABALIN 75 MG CAPSULE PO SCH ×2 (13:11→20:57)
[2017-10-15] MEDS ORDERED: ALLOPURINOL 300 MG TABLET PO ONE (13:15)
[2017-10-15] MEDS: CEFEPIME 1 GM/D5W RTU 1 GM/50 ML RTUPB IV SCH (13:19)
[2017-10-15] MEDS: POTASSIUM CHLORIDE 20 MEQ/50 ML RTU IV SCH ×2 (13:22→18:16)
--- NOTE | 2017-10-15 13:52 | PDOC PROGRESS REPORT ---
Subjective Progress Note for:: 10/15/17 Subjective:: Patient admitted with severe sepsis and UTI secondary to infected ureteral stone. She was e Reason For Visit: SEVERE SEPSIS, UTI Physical Exam Vital Signs: Temp Pulse Resp BP Pulse Ox 98.8 F 78 15 184/91 H 98 10/15/17 12:00 10/15/17 12:00 10/15/17 12:00 10/15/17 12:00 10/15/17 12:00 Intake & Output 10/14/17 10/15/17 10/16/17 06:59 06:59 06:59 Intake Total 3996 1151 Output Total 4115 2080 1620 Balance -119 -9202 -1620 Weight 82.5 kg 81.6 kg General appearance: PRESENT: no acute distress Mouth exam: PRESENT: dry mucosa Neck exam: ABSENT: carotid bruit, JVD, lymphadenopathy, thyromegaly Respiratory exam: PRESENT: clear to auscultation bailey. ABSENT: rales, rhonchi, wheezes Cardiovascular exam: PRESENT: RRR. ABSENT: diastolic murmur, rubs, systolic murmur GI/Abdominal exam: PRESENT: normal bowel sounds, soft. ABSENT: distended, guarding, mass, organolmegaly, rebound, tenderness Rectal exam: PRESENT: deferred Extremities exam: PRESENT: full ROM. ABSENT: calf tenderness, clubbing, pedal edema Musculoskeletal exam: PRESENT: ambulatory Neurological exam: PRESENT: alert, awake, oriented to person, oriented to place , oriented to time, oriented to situation, CN II-XII grossly intact. ABSENT: motor sensory deficit Skin exam: PRESENT: dry, intact, warm. ABSENT: cyanosis, rash Results Laboratory Results: 10/15/17 03:50 10/15/17 03:50 10/15/17 10/15/17 10/15/17 03:50 03:50 06:15 WBC 21.9 H RBC 2.97 L Hgb 9.5 L Hct 28.3 L MCV 96 MCH 32.1 MCHC 33.6 RDW 15.8 H Plt Count 110 L Seg Neutrophils % Not Reportable Lymphocytes % Not Reportable Monocytes % Not Reportable Eosinophils % Not Reportable Basophils % Not Reportable Absolute Neutrophils Not Reportable Absolute Lymphocytes Not Reportable Absolute Monocytes Not Reportable Absolute Eosinophils Not Reportable Absolute Basophils Not Reportable Carbonic Acid 0.91 L HCO3/H2CO3 Ratio 20:1 ABG pH 7.41 ABG pCO2 30.1 L ABG pO2 93.9 ABG HCO3 18.6 L ABG O2 Saturation 97.3 ABG Base Excess -5.2 FiO2 3L Sodium 153.8 H Potassium 3.1 L Chloride 126 H Carbon Dioxide 16 L Anion Gap 12 BUN 24 H Creatinine 1.02 Est GFR ( Amer) > 60 Est GFR (Non-Af Amer) 52 L Glucose 116 H Calcium 7.9 L Magnesium 1.8 10/13/17 09:10 Tracheal Aspirate Gram Stain - Final 10/13/17 09:10 Tracheal Aspirate Sputum Culture - Final NORMAL DI 10/12/17 22:31 Catheterized Urine Urine Culture - Final Providencia Stuartii Impressions: Fluoroscopy 10/12/17 00:00 IMPRESSION: IMAGE(S) OBTAINED DURING PROCEDURE. Retrograde Pyelogram 10/12/17 00:00 IMPRESSION: IMAGE(S) OBTAINED DURING PROCEDURE. Limited or Localized CT 10/12/17 18:47 IMPRESSION: 1. Left obstructive uropathy, at least moderate hydronephrosis due to a sizable distal left ureteral stone measuring almost 8 mm. There may be additional tiny distal ureteral stones as well. 2. 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 This may also explain calcifications in the abdominopelvic cavity. Chest X-Ray 10/15/17 06:00 IMPRESSION: Endotracheal tube removed. No focal infiltrates. Stable mild cardiomegaly Assessment & Plan - Time Time Spent with patient: 15-24 minutes Medications reviewed and adjusted accordingly: Yes Anticipated discharge: Home Within: within 48 hours - Plan Summary Plan Summary: 1.Sepsis likely related to infected left urolithiasis. She is status post stent placement and continues on vancomycin and cefepime. Will continue same antibiotics for now. Patient can be moved out of ICU 2. Aspiration pneumonia possibly while in the OR. She was successfully extubated and remains stable respiratory adams of the ventilator 3. Acute respiratory failure secondary to above 4. Acute renal failure superimposed on chronic kidney disease stage III. AK I likely secondary to sepsis as well as obstruction from the urolithiasis. This is resolving 5. Left ureteral stone status post stent placement. Appreciate urology input. Plan is to follow-up with urology in about 2 weeks. Will leave Toribio catheter in place 6. Rheumatoid arthritis on chronic steroid with high steroid dose increased to a stress dose. Taper Solu-Medrol and converted to p.o. prednisone as appropriate 7. Urinary tract infection secondary to providentia. I will go ahead and switch antibiotics to intravenous fluoroquinolone as her white count is still pretty high and we can change to p.o. once she is more stable. 8. Patient can be moved out of the intensive care unit.
--- NOTE | 2017-10-15 13:59 | Progress Note ---
Provider Note Provider Note: Patient is allergic to fluoroquinolones and she apparently also has an allergy to penicillin and cephalexin however she had been receiving cefepime with no adverse effect and so I will switch her antibiotics to imipenem noting the very little cross sensitivity with penicillin.
[2017-10-15] MEDS ORDERED: VANCOMYCIN HCL 1,250 MG in DEXTROSE 5%-WATER 250 ML IV SCH (14:00)
[2017-10-15] MEDS ORDERED: ALLOPURINOL 100 MG TABLET PO ONE (14:00)
[2017-10-15] MEDS: IPRATROPIUM/ALBUTEROL 0.5-2.5 MG/3 ML AMPUL NEB SCH ×2 (14:02→20:09)
[2017-10-15] MEDS: FENTANYL CITRATE INJ/PF 100 MCG/2 ML AMPUL IV PRN (15:11)
[2017-10-15] MEDS: ALLOPURINOL 300 MG TABLET PO SCH (17:59)
[2017-10-15] MEDS ORDERED: MEROPENEM 1 GM in NORMAL SALINE 100 ML IV SCH (18:00)
[2017-10-15] MEDS: MEROPENEM 1 GM in NORMAL SALINE 100 ML IV SCH (19:59)
[2017-10-15] MEDS: BUDESONIDE NEB 0.5 MG/2 ML AMPUL NEB SCH (20:09)
--- NOTE | 2017-10-15 20:20 | PDOC PROGRESS REPORT ---
Subjective Progress Note for:: 10/15/17 Subjective:: 24 hrs s/p extubation stable doing well Reason For Visit: SEVERE SEPSIS, UTI Physical Exam Vital Signs: Temp Pulse Resp BP Pulse Ox 98.4 F 84 18 177/93 H 97 10/15/17 07:53 10/15/17 07:53 10/15/17 07:53 10/15/17 07:53 10/15/17 07:53 Intake & Output 10/14/17 10/15/17 10/16/17 06:59 06:59 06:59 Intake Total 3996 1151 Output Total 4115 3620 400 Balance -119 -8275 -400 Weight 82.5 kg 81.6 kg General appearance: PRESENT: no acute distress, cooperative, disheveled, obese Head exam: PRESENT: atraumatic, normocephalic Eye exam: PRESENT: conjunctiva pale, EOMI. ABSENT: nystagmus, periorbital swelling, scleral icterus Mouth exam: PRESENT: dry mucosa, neck supple, tongue midline Neck exam: ABSENT: carotid bruit, JVD, lymphadenopathy, thyromegaly, tracheal deviation, tracheostomy Respiratory exam: PRESENT: decreased breath sounds, prolonged expiratory phas, rhonchi, symmetrical, unlabored. ABSENT: rales, retraction, stridor, tachypnea Cardiovascular exam: PRESENT: RRR, +S1, +S2 Pulses: PRESENT: normal radial pulses GI/Abdominal exam: PRESENT: diminished bowel sounds, soft Extremities exam: ABSENT: calf tenderness, clubbing Musculoskeletal exam: ABSENT: deformity, dislocation Neurological exam: PRESENT: awake. ABSENT: alert Psychiatric exam: PRESENT: flat affect Skin exam: PRESENT: dry, warm Results Laboratory Results: 10/15/17 03:50 10/15/17 03:50 10/15/17 10/15/17 10/15/17 03:50 03:50 06:15 WBC 21.9 H RBC 2.97 L Hgb 9.5 L Hct 28.3 L MCV 96 MCH 32.1 MCHC 33.6 RDW 15.8 H Plt Count 110 L Seg Neutrophils % Not Reportable Lymphocytes % Not Reportable Monocytes % Not Reportable Eosinophils % Not Reportable Basophils % Not Reportable Absolute Neutrophils Not Reportable Absolute Lymphocytes Not Reportable Absolute Monocytes Not Reportable Absolute Eosinophils Not Reportable Absolute Basophils Not Reportable Carbonic Acid 0.91 L HCO3/H2CO3 Ratio 20:1 ABG pH 7.41 ABG pCO2 30.1 L ABG pO2 93.9 ABG HCO3 18.6 L ABG O2 Saturation 97.3 ABG Base Excess -5.2 FiO2 3L Sodium 153.8 H Potassium 3.1 L Chloride 126 H Carbon Dioxide 16 L Anion Gap 12 BUN 24 H Creatinine 1.02 Est GFR ( Amer) > 60 Est GFR (Non-Af Amer) 52 L Glucose 116 H Calcium 7.9 L Magnesium 1.8 Impressions: Fluoroscopy 10/12/17 00:00 IMPRESSION: IMAGE(S) OBTAINED DURING PROCEDURE. Retrograde Pyelogram 10/12/17 00:00 IMPRESSION: IMAGE(S) OBTAINED DURING PROCEDURE. Limited or Localized CT 10/12/17 18:47 IMPRESSION: 1. Left obstructive uropathy, at least moderate hydronephrosis due to a sizable distal left ureteral stone measuring almost 8 mm. There may be additional tiny distal ureteral stones as well. 2. 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 This may also explain calcifications in the abdominopelvic cavity. Chest X-Ray 10/15/17 06:00 IMPRESSION: Endotracheal tube removed. No focal infiltrates. Stable mild cardiomegaly Assessment & Plan - Diagnosis (1) Acute renal failure superimposed on stage 3 chronic kidney disease Qualifiers: Acute renal failure type: unspecified Qualified Code(s): N17.9 - Acute kidney failure, unspecified; N18.3 - Chronic kidney disease, stage 3 (moderate) ; N18.3 - Chronic kidney disease, stage 3 (moderate) Is this a current diagnosis for this admission?: Yes Plan: obstruction relived u out put ok (2) Acute respiratory failure Is this a current diagnosis for this admission?: Yes Plan: s/p extubation doing well on n/c (3) Left ureteral stone Is this a current diagnosis for this admission?: Yes Plan: stent per Urology (4) Sepsis Qualifiers: Sepsis type: sepsis due to unspecified organism Qualified Code(s): A41.9 - Sepsis, unspecified organism Is this a current diagnosis for this admission?: No - Time Total Critical Time (Minutes): 35
[2017-10-15] MEDS: NORMAL SALINE 1000 ML 1,000 ML IV PRN (23:53)
[2017-10-16] MEDS: HEPARIN SOD (PORCINE) 5,000 UNIT/ML 1 ML SYRINGE SUBCUT SCH ×3 (00:04→22:46)
[2017-10-16 05:11] LABS: ARTERIAL BLOOD BASE EXCESS -4.9 mmol/L; ARTERIAL BLOOD H2CO3 0.84 mmol/L (1.05-1.35); ARTERIAL BLOOD HCO3 18.4 mmol/L (20-26); ARTERIAL BLOOD O2 SATURATION 96.1 % (94-98); ARTERIAL BLOOD PCO2 27.9 mmHg (35-45); ARTERIAL BLOOD PH 7.44 (7.35-7.45); ARTERIAL BLOOD TOTAL CO2 19.3 mmol/L (21-25)
[2017-10-16] MEDS: PREGABALIN 75 MG CAPSULE PO SCH ×3 (05:16→22:54)
[2017-10-16] MEDS: METRONIDAZOLE 500 MG/NS RTU 100 ML IV SCH (05:17)
[2017-10-16] MEDS: MEROPENEM 1 GM in NORMAL SALINE 100 ML IV SCH ×2 (05:17→18:00)
[2017-10-16 05:18] LABS: ARTERIAL BLOOD FIO2 ROOM AIR
[2017-10-16 05:43] LABS: HEMATOCRIT 27.4 % (36.0-47.0); HEMOGLOBIN 9.4 g/dL (12.0-15.5); MEAN CORPUSCULAR HEMOGLOBIN 32.6 pg (27.0-33.4); MEAN CORPUSCULAR HGB CONC 34.3 g/dL (32.0-36.0); MEAN CORPUSCULAR VOLUME 95 fl (80-97); PLATELET COUNT 117 10^3/uL (150-450); RED BLOOD COUNT 2.89 10^6/uL (3.72-5.28); RED CELL DISTRIBUTION WIDTH 16.1 % (11.5-14.0); WHITE BLOOD COUNT 10.8 10^3/uL (4.0-10.5)
[2017-10-16 05:48] LABS: ANION GAP 15 (5-19); BLOOD UREA NITROGEN 23 mg/dL (7-20); CALCIUM 8.1 mg/dL (8.4-10.2); CARBON DIOXIDE 17 mmol/L (22-30); CHLORIDE 119 mmol/L (98-107); GLUCOSE 86 mg/dL (75-110); SODIUM 150.6 mmol/L (137-145)
[2017-10-16 05:50] LABS: POTASSIUM 2.7 mmol/L (3.6-5.0)
[2017-10-16 06:35] LABS: ABSOLUTE LYMPHOCYTES# (MANUAL) 1.3 10^3/uL (0.5-4.7); ABSOLUTE MONOCYTES # (MANUAL) 0.5 10^3/uL (0.1-1.4); BASOPHILS % (MANUAL) 0 % (0-2); EOSINOPHILS % (MANUAL) 0 % (0-6); LYMPHOCYTES % (MANUAL) 11 % (13-45); MONOCYTES % (MANUAL) 5 % (3-13); SEGMENTED NEUTROPHILS % (MAN) 83 % (42-78); TOTAL CELLS COUNTED 100
[2017-10-16 06:36] LABS: ANISOCYTOSIS 1+; OVALOCYTES 1+; PLATELET COMMENT ADEQUATE; POIKILOCYTOSIS 1+; POLYCHROMASIA SLIGHT; TEAR DROP CELLS 1+
[2017-10-16] MEDS ORDERED: POTASSIUM CHLORIDE 10 MEQ TABLET.SA PO ONE (07:00)
[2017-10-16] MEDS: IPRATROPIUM/ALBUTEROL 0.5-2.5 MG/3 ML AMPUL NEB SCH ×3 (08:03→20:01)
[2017-10-16] MEDS: BUDESONIDE NEB 0.5 MG/2 ML AMPUL NEB SCH ×2 (08:03→20:01)
[2017-10-16] MEDS: ALLOPURINOL 300 MG TABLET PO SCH ×2 (09:06→17:48)
[2017-10-16] MEDS: POTASSIUM CHLORIDE 20 MEQ/50 ML RTU IV SCH ×2 (09:07→11:35)
[2017-10-16] MEDS ORDERED: DEXTROSE 5% IV PRN ×2 (09:18)
[2017-10-16] MEDS ORDERED: POTASSIUM CHLORIDE IV PRN ×2 (09:18)
[2017-10-16] MEDS ORDERED: 1/4 NORMAL SALINE IV PRN ×2 (09:18)
--- NOTE | 2017-10-16 09:26 | PDOC PROGRESS REPORT ---
Subjective Progress Note for:: 10/16/17 Subjective:: Patient admitted with severe sepsis and UTI secondary to infected ureteral stone. She is feeling much better today. Reason For Visit: SEVERE SEPSIS, UTI Physical Exam Vital Signs: Temp Pulse Resp BP Pulse Ox 98.8 F 93 20 163/70 H 96 10/16/17 08:23 10/16/17 08:23 10/16/17 08:23 10/16/17 08:23 10/16/17 08:23 Intake & Output 10/15/17 10/16/17 10/17/17 06:59 06:59 06:59 Intake Total 1151 2505 Output Total 3620 2520 Balance -2469 -15 Weight 81.6 kg 83 kg General appearance: PRESENT: no acute distress, well-developed Head exam: PRESENT: atraumatic Ear exam: PRESENT: normal external ear exam Mouth exam: PRESENT: dry mucosa Neck exam: ABSENT: carotid bruit, JVD, lymphadenopathy, thyromegaly Respiratory exam: PRESENT: clear to auscultation bailey. ABSENT: rales, rhonchi, wheezes Cardiovascular exam: PRESENT: RRR. ABSENT: diastolic murmur, rubs, systolic murmur Pulses: PRESENT: normal dorsalis pedis pul GI/Abdominal exam: PRESENT: normal bowel sounds, soft. ABSENT: distended, guarding, mass, organolmegaly, rebound, tenderness Rectal exam: PRESENT: deferred Extremities exam: PRESENT: full ROM. ABSENT: calf tenderness, clubbing, pedal edema Musculoskeletal exam: PRESENT: ambulatory Neurological exam: PRESENT: alert, awake, oriented to time, oriented to situation Results Laboratory Results: 10/16/17 04:46 10/16/17 04:46 10/16/17 10/16/17 10/16/17 04:45 04:46 04:46 WBC 10.8 H RBC 2.89 L Hgb 9.4 L Hct 27.4 L MCV 95 MCH 32.6 MCHC 34.3 RDW 16.1 H Plt Count 117 L Seg Neutrophils % Not Reportable Lymphocytes % Not Reportable Monocytes % Not Reportable Eosinophils % Not Reportable Basophils % Not Reportable Absolute Neutrophils Not Reportable Absolute Lymphocytes Not Reportable Absolute Monocytes Not Reportable Absolute Eosinophils Not Reportable Absolute Basophils Not Reportable Carbonic Acid 0.84 L HCO3/H2CO3 Ratio 21:1 ABG pH 7.44 ABG pCO2 27.9 L ABG pO2 78.0 L ABG HCO3 18.4 L ABG O2 Saturation 96.1 ABG Base Excess -4.9 FiO2 ROOM AIR Sodium 150.6 H Potassium 2.7 L* Chloride 119 H Carbon Dioxide 17 L Anion Gap 15 BUN 23 H Creatinine 0.93 Est GFR ( Amer) > 60 Est GFR (Non-Af Amer) 58 L Glucose 86 Calcium 8.1 L Magnesium 1.5 L 10/16/17 07:19 WBC RBC Hgb Hct MCV MCH MCHC RDW Plt Count Seg Neutrophils % Lymphocytes % Monocytes % Eosinophils % Basophils % Absolute Neutrophils Absolute Lymphocytes Absolute Monocytes Absolute Eosinophils Absolute Basophils Carbonic Acid HCO3/H2CO3 Ratio ABG pH ABG pCO2 ABG pO2 ABG HCO3 ABG O2 Saturation ABG Base Excess FiO2 Sodium Potassium Chloride Carbon Dioxide Anion Gap BUN Creatinine Est GFR ( Amer) Est GFR (Non-Af Amer) Glucose Calcium Magnesium 1.5 L 10/13/17 09:10 Tracheal Aspirate Gram Stain - Final 10/13/17 09:10 Tracheal Aspirate Sputum Culture - Final NORMAL DI 10/12/17 22:31 Catheterized Urine Urine Culture - Final Providencia Stuartii Impressions: Fluoroscopy 10/12/17 00:00 IMPRESSION: IMAGE(S) OBTAINED DURING PROCEDURE. Retrograde Pyelogram 10/12/17 00:00 IMPRESSION: IMAGE(S) OBTAINED DURING PROCEDURE. Limited or Localized CT 10/12/17 18:47 IMPRESSION: 1. Left obstructive uropathy, at least moderate hydronephrosis due to a sizable distal left ureteral stone measuring almost 8 mm. There may be additional tiny distal ureteral stones as well. 2. 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 This may also explain calcifications in the abdominopelvic cavity. Chest X-Ray 10/15/17 06:00 IMPRESSION: Endotracheal tube removed. No focal infiltrates. Stable mild cardiomegaly Assessment & Plan - Time Time Spent with patient: 15-24 minutes Medications reviewed and adjusted accordingly: Yes Anticipated discharge: Home Within: within 72 hours - Plan Summary Plan Summary: 1.Sepsis likely related to infected left urolithiasis. She is status post stent placement. Antibiotics changed to Meropenem as per culture ID 2. Aspiration pneumonia. She was successfully extubated and remains stable respiratory adams off the ventilator 3. Acute respiratory failure secondary to above 4. Acute renal failure superimposed on chronic kidney disease stage III. [place] I likely secondary to sepsis as well as obstruction from the urolithiasis. This is resolving 5. Left ureteral stone status post stent placement. Appreciate urology input. Plan is to follow-up with urology in about 2 weeks. Will leave Toribio catheter in place 6. Rheumatoid arthritis on chronic steroid with high steroid dose increased to a stress dose. Start p.o. prednisone. She is on 5mg chronically. 7. Urinary tract infection secondary to providentia. Currently on Meropenem 8. Hypernatremic dehydration- change to hypotonic fluid, encourage PO intake 9. Hypokalemia and hypomagnesemia- will replete. 10. PT eval
[2017-10-16] MEDS ORDERED: POLYETHYLENE GLYCOL 3350 POWDER 17 GM/1 PACKET PO PRN (09:27)
[2017-10-16] MEDS ORDERED: DOCUSATE SODIUM 100 MG CAPSULE PO PRN (09:27)
[2017-10-16] MEDS ORDERED: BISACODYL 5 MG TABEC PO PRN (09:27)
[2017-10-16] MEDS ORDERED: PREDNISONE 10 MG TABLET PO SCH (09:30)
[2017-10-16] MEDS ORDERED: HYDROXYCHLOROQUINE SULFATE 200 MG TABLET PO SCH (10:00)
[2017-10-16] MEDS ORDERED: (PENDING PHARMACY ID) (Diclofenac Sodium [Voltaren] 1 GM) TOP SCH (10:00)
[2017-10-16] MEDS ORDERED: HYDROCORTISONE SOD SUCCINATE INJ/PF 100 MG/2 ML SDV IV SCH (10:00)
[2017-10-16] MEDS ORDERED: MAGNESIUM SULFATE/D5W 1 GM/100 ML RTUPB IV SCH (10:30)
[2017-10-16] MEDS: PREDNISONE 20 MG TABLET PO SCH (10:51)
[2017-10-16] MEDS: POTASSI CL 20 MEQ/D5-1/4NS 1L 1000 ML IV PRN (14:04)
[2017-10-16] MEDS ORDERED: MAGNESIUM SULFATE/D5W 2 GM/200 ML RTUPB IV ONE (17:43)
[2017-10-16] MEDS: HYDROXYCHLOROQUINE SULFATE 200 MG TABLET PO SCH (22:53)
[2017-10-17] MEDS ORDERED: MAG HYDROX/AL HYDROX/SIMETH SUSP 30 ML UDCUP PO PRN (02:18)
[2017-10-17] MEDS ORDERED: FAMOTIDINE 20 MG TABLET PO ONE (02:30)
[2017-10-17] MEDS: HEPARIN SOD (PORCINE) 5,000 UNIT/ML 1 ML SYRINGE SUBCUT SCH ×3 (05:37→21:21)
[2017-10-17] MEDS: MEROPENEM 1 GM in NORMAL SALINE 100 ML IV SCH ×2 (06:13→18:44)
[2017-10-17] MEDS: PREGABALIN 75 MG CAPSULE PO SCH ×3 (06:13→21:26)
[2017-10-17] MEDS: POTASSI CL 20 MEQ/D5-1/4NS 1L 1000 ML IV PRN (06:15)
[2017-10-17 06:17] LABS: HEMATOCRIT 28.9 % (36.0-47.0); HEMOGLOBIN 9.8 g/dL (12.0-15.5); MEAN CORPUSCULAR HEMOGLOBIN 32.2 pg (27.0-33.4); MEAN CORPUSCULAR HGB CONC 33.9 g/dL (32.0-36.0); MEAN CORPUSCULAR VOLUME 95 fl (80-97); PLATELET COUNT 124 10^3/uL (150-450); RED BLOOD COUNT 3.04 10^6/uL (3.72-5.28); RED CELL DISTRIBUTION WIDTH 15.8 % (11.5-14.0); WHITE BLOOD COUNT 11.2 10^3/uL (4.0-10.5)
[2017-10-17 06:30] LABS: ANION GAP 11 (5-19); BLOOD UREA NITROGEN 20 mg/dL (7-20); CALCIUM 8.2 mg/dL (8.4-10.2); CARBON DIOXIDE 18 mmol/L (22-30); CHLORIDE 116 mmol/L (98-107); GLUCOSE 129 mg/dL (75-110); POTASSIUM 3.1 mmol/L (3.6-5.0)
[2017-10-17] MEDS: IPRATROPIUM/ALBUTEROL 0.5-2.5 MG/3 ML AMPUL NEB SCH ×3 (08:49→20:14)
[2017-10-17] MEDS: BUDESONIDE NEB 0.5 MG/2 ML AMPUL NEB SCH ×2 (08:49→20:15)
[2017-10-17] MEDS: FAMOTIDINE 20 MG TABLET PO SCH ×2 (10:30→18:40)
[2017-10-17] MEDS: PREDNISONE 20 MG TABLET PO SCH (10:30)
[2017-10-17] MEDS: ALLOPURINOL 300 MG TABLET PO SCH ×2 (10:30→18:42)
--- NOTE | 2017-10-17 15:47 | PDOC PROGRESS REPORT ---
Subjective Progress Note for:: 10/17/17 Subjective:: Patient admitted with severe sepsis and UTI secondary to infected ureteral stone. She is feeling much better today. Reason For Visit: SEVERE SEPSIS, UTI Physical Exam Vital Signs: Temp Pulse Resp BP Pulse Ox 98.0 F 87 16 139/63 H 96 10/17/17 11:44 10/17/17 13:40 10/17/17 13:40 10/17/17 11:44 10/17/17 13:40 Intake & Output 10/16/17 10/17/17 10/18/17 06:59 06:59 06:59 Intake Total 2505 4089 200 Output Total 2520 2200 300 Balance -15 1889 -100 Weight 83 kg 85.8 kg General appearance: PRESENT: no acute distress Head exam: PRESENT: atraumatic Neck exam: ABSENT: carotid bruit, JVD, lymphadenopathy, thyromegaly Respiratory exam: PRESENT: clear to auscultation bailey. ABSENT: rales, rhonchi, wheezes Cardiovascular exam: PRESENT: RRR. ABSENT: diastolic murmur, rubs, systolic murmur Pulses: PRESENT: normal dorsalis pedis pul GI/Abdominal exam: PRESENT: normal bowel sounds, soft. ABSENT: distended, guarding, mass, organolmegaly, rebound, tenderness Rectal exam: PRESENT: deferred Gentrourinary exam: PRESENT: indwelling catheter Extremities exam: PRESENT: full ROM. ABSENT: calf tenderness, clubbing, pedal edema Musculoskeletal exam: PRESENT: ambulatory Neurological exam: PRESENT: alert, awake, oriented to person, oriented to place , oriented to time, oriented to situation, CN II-XII grossly intact. ABSENT: motor sensory deficit Results Laboratory Results: 10/17/17 05:21 10/17/17 05:21 10/17/17 10/17/17 05:21 05:21 WBC 11.2 H RBC 3.04 L Hgb 9.8 L Hct 28.9 L MCV 95 MCH 32.2 MCHC 33.9 RDW 15.8 H Plt Count 124 L Sodium 145.0 Potassium 3.1 L Chloride 116 H Carbon Dioxide 18 L Anion Gap 11 BUN 20 Creatinine 0.85 Est GFR ( Amer) > 60 Est GFR (Non-Af Amer) > 60 Glucose 129 H Calcium 8.2 L Magnesium 2.3 Impressions: Fluoroscopy 10/12/17 00:00 IMPRESSION: IMAGE(S) OBTAINED DURING PROCEDURE. Retrograde Pyelogram 10/12/17 00:00 IMPRESSION: IMAGE(S) OBTAINED DURING PROCEDURE. Limited or Localized CT 10/12/17 18:47 IMPRESSION: 1. Left obstructive uropathy, at least moderate hydronephrosis due to a sizable distal left ureteral stone measuring almost 8 mm. There may be additional tiny distal ureteral stones as well. 2. 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 This may also explain calcifications in the abdominopelvic cavity. Chest X-Ray 10/15/17 06:00 IMPRESSION: Endotracheal tube removed. No focal infiltrates. Stable mild cardiomegaly Assessment & Plan - Time Time Spent with patient: 15-24 minutes Medications reviewed and adjusted accordingly: Yes Anticipated discharge: Acute Rehab - Plan Summary Plan Summary: 1.Sepsis likely related to infected left urolithiasis. She is status post stent placement. Antibiotics changed to Meropenem WBC is down to 11k from 67k. She has remained hemodynamically stable. At this time she can tolerate oral and her kidney function is recovered. Will start on PO in am 2. Aspiration pneumonia. Cont antibiotics. 3. Acute respiratory failure secondary to above 4. Acute renal failure superimposed on chronic kidney disease stage III. [place] I likely secondary to sepsis as well as obstruction from the urolithiasis. This is improved 5. Left ureteral stone status post stent placement. Appreciate urology input. Plan is to follow-up with urology in about 2 weeks. Will leave Toribio catheter in place 6. Rheumatoid arthritis on chronic steroid with high steroid dose increased to a stress dose. Taper p.o. prednisone. She is on 5mg chronically. 7. Urinary tract infection secondary to providentia. CSee above 8. Hypernatremic dehydration- cont hypotonic fluid, encourage PO intake 9. Hypokalemia and hypomagnesemia- replete. 10. PT eval, plan is to dc to Rehab
[2017-10-17] MEDS ORDERED: PREDNISONE 20 MG TABLET PO SCH (15:51)
[2017-10-17] MEDS: POTASSIUM CHLORIDE 10 MEQ TABLET.SA PO SCH ×2 (15:54→21:26)
[2017-10-17] MEDS ORDERED: PREDNISONE 20 MG TABLET PO ONE (16:30)
[2017-10-17] MEDS: MAGNESIUM OXIDE 400 MG TABLET PO SCH (18:40)
[2017-10-17] MEDS: POTASSI CL 20 MEQ/D5-1/4NS 1L 1,000 ML IV PRN (20:00)
[2017-10-17] MEDS: HYDROXYCHLOROQUINE SULFATE 200 MG TABLET PO SCH (21:26)
[2017-10-18] MEDS: HEPARIN SOD (PORCINE) 5,000 UNIT/ML 1 ML SYRINGE SUBCUT SCH ×3 (05:47→21:26)
[2017-10-18] MEDS: PREGABALIN 75 MG CAPSULE PO SCH ×3 (06:28→21:21)
[2017-10-18 07:02] LABS: HEMOGLOBIN 9.6 g/dL (12.0-15.5); MEAN CORPUSCULAR HEMOGLOBIN 32.6 pg (27.0-33.4); MEAN CORPUSCULAR HGB CONC 34.4 g/dL (32.0-36.0); MEAN CORPUSCULAR VOLUME 95 fl (80-97); PLATELET COUNT 118 10^3/uL (150-450); RED BLOOD COUNT 2.95 10^6/uL (3.72-5.28); RED CELL DISTRIBUTION WIDTH 15.9 % (11.5-14.0); WHITE BLOOD COUNT 10.3 10^3/uL (4.0-10.5)
[2017-10-18 07:27] LABS: ANION GAP 7 (5-19); BLOOD UREA NITROGEN 19 mg/dL (7-20); CARBON DIOXIDE 20 mmol/L (22-30); CHLORIDE 118 mmol/L (98-107); GLUCOSE 135 mg/dL (75-110); POTASSIUM 4.2 mmol/L (3.6-5.0); SODIUM 144.7 mmol/L (137-145)
[2017-10-18 07:39] LABS: ABSOLUTE LYMPHOCYTES# (MANUAL) 1.4 10^3/uL (0.5-4.7); ABSOLUTE MONOCYTES # (MANUAL) 1.1 10^3/uL (0.1-1.4); ABSOLUTE NEUTROPHILS# (MANUAL) 7.7 10^3/uL (1.7-8.2); BAND NEUTROPHILS % (MANUAL) 18 % (3-5); BASOPHILS % (MANUAL) 0 % (0-2); EOSINOPHILS % (MANUAL) 0 % (0-6); LYMPHOCYTES % (MANUAL) 14 % (13-45); MONOCYTES % (MANUAL) 11 % (3-13); SEGMENTED NEUTROPHILS % (MAN) 57 % (42-78); TOTAL CELLS COUNTED 100
[2017-10-18 07:40] LABS: ANISOCYTOSIS 1+; PLATELET COMMENT DECREASED; TOXIC GRANULATION SLIGHT
[2017-10-18] MEDS: IPRATROPIUM/ALBUTEROL 0.5-2.5 MG/3 ML AMPUL NEB SCH ×3 (08:22→20:16)
[2017-10-18] MEDS: BUDESONIDE NEB 0.5 MG/2 ML AMPUL NEB SCH ×2 (08:22→20:15)
[2017-10-18] MEDS: MAGNESIUM OXIDE 400 MG TABLET PO SCH ×2 (11:57→18:36)
[2017-10-18] MEDS: FAMOTIDINE 20 MG TABLET PO SCH ×2 (11:57→18:35)
[2017-10-18] MEDS: SULFAMETHOXAZOLE/TRIMETHOPRIM 800-160 MG TABLET PO SCH ×2 (11:57→18:35)
[2017-10-18] MEDS: ALLOPURINOL 300 MG TABLET PO SCH ×2 (11:59→18:32)
[2017-10-18] MEDS: POTASSI CL 20 MEQ/D5-1/4NS 1L 1,000 ML IV PRN (12:00)
--- NOTE | 2017-10-18 15:58 | PDOC PROGRESS REPORT ---
Subjective Progress Note for:: 10/18/17 Subjective:: Patient admitted with severe sepsis and UTI secondary to infected ureteral stone. Patient continues to improve Reason For Visit: SEVERE SEPSIS, UTI Physical Exam Vital Signs: Temp Pulse Resp BP Pulse Ox 97.7 F 81 16 150/71 H 96 10/18/17 11:37 10/18/17 14:24 10/18/17 14:24 10/18/17 11:37 10/18/17 14:24 Intake & Output 10/17/17 10/18/17 10/19/17 06:59 06:59 06:59 Intake Total 4089 1400 237 Output Total 2200 1525 700 Balance 8799 -125 -413 Weight 85.8 kg 87.3 kg General appearance: PRESENT: no acute distress Head exam: PRESENT: atraumatic Ear exam: PRESENT: normal external ear exam Neck exam: ABSENT: carotid bruit, JVD, lymphadenopathy, thyromegaly Cardiovascular exam: PRESENT: RRR. ABSENT: diastolic murmur, rubs, systolic murmur GI/Abdominal exam: PRESENT: normal bowel sounds, soft. ABSENT: distended, guarding, mass, organolmegaly, rebound, tenderness Rectal exam: PRESENT: deferred Musculoskeletal exam: PRESENT: ambulatory Neurological exam: PRESENT: alert, awake, oriented to person, oriented to place , oriented to time, oriented to situation, CN II-XII grossly intact. ABSENT: motor sensory deficit Psychiatric exam: PRESENT: appropriate affect, normal mood. ABSENT: homicidal ideation, suicidal ideation Results Laboratory Results: 10/18/17 05:35 10/18/17 05:35 10/18/17 10/18/17 05:35 05:35 WBC 10.3 RBC 2.95 L Hgb 9.6 L Hct 28.0 L MCV 95 MCH 32.6 MCHC 34.4 RDW 15.9 H Plt Count 118 L Seg Neutrophils % Not Reportable Lymphocytes % Not Reportable Monocytes % Not Reportable Eosinophils % Not Reportable Basophils % Not Reportable Absolute Neutrophils Not Reportable Absolute Lymphocytes Not Reportable Absolute Monocytes Not Reportable Absolute Eosinophils Not Reportable Absolute Basophils Not Reportable Sodium 144.7 Potassium 4.2 Chloride 118 H Carbon Dioxide 20 L Anion Gap 7 BUN 19 Creatinine 0.89 Est GFR ( Amer) > 60 Est GFR (Non-Af Amer) > 60 Glucose 135 H Calcium 9.0 10/13/17 06:10 Blood Blood Culture - Final NO GROWTH IN 5 DAYS 10/12/17 23:49 Blood Blood Culture - Final NO GROWTH IN 5 DAYS Impressions: Fluoroscopy 10/12/17 00:00 IMPRESSION: IMAGE(S) OBTAINED DURING PROCEDURE. Retrograde Pyelogram 10/12/17 00:00 IMPRESSION: IMAGE(S) OBTAINED DURING PROCEDURE. Limited or Localized CT 10/12/17 18:47 IMPRESSION: 1. Left obstructive uropathy, at least moderate hydronephrosis due to a sizable distal left ureteral stone measuring almost 8 mm. There may be additional tiny distal ureteral stones as well. 2. 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 This may also explain calcifications in the abdominopelvic cavity. Chest X-Ray 10/15/17 06:00 IMPRESSION: Endotracheal tube removed. No focal infiltrates. Stable mild cardiomegaly Assessment & Plan - Time Time Spent with patient: 15-24 minutes Medications reviewed and adjusted accordingly: Yes Anticipated discharge: Acute Rehab Within: within 48 hours - Plan Summary Plan Summary: 1.Sepsis likely related to infected left urolithiasis. Resolved 2. Aspiration pneumonia. Cont antibiotics 3. Acute respiratory failure secondary to above 4. Acute renal failure superimposed on chronic kidney disease stage III. [place] I likely secondary to sepsis as well as obstruction from the urolithiasis. This is resolved 5. Left ureteral stone status post stent placement. Appreciate urology input. Plan is to follow-up with urology in about 2 weeks. Will leave Toribio catheter in place 6. Rheumatoid arthritis on chronic steroid with high steroid dose increased to a stress dose. Taper p.o. prednisone. She is on 5mg chronically. 7. Urinary tract infection secondary to providentia. 8. Hypernatremic dehydration- encourage PO intake 9. Hypokalemia and hypomagnesemia- replete. 10. PT eval, plan is to dc to Rehab hopefully within the next 48 hours or so
[2017-10-18] MEDS: HYDROXYCHLOROQUINE SULFATE 200 MG TABLET PO SCH (21:21)
[2017-10-19] MEDS: PREGABALIN 75 MG CAPSULE PO SCH ×3 (05:55→22:07)
[2017-10-19] MEDS: POTASSI CL 20 MEQ/D5-1/4NS 1L 1,000 ML IV PRN (05:56)
[2017-10-19] MEDS: HEPARIN SOD (PORCINE) 5,000 UNIT/ML 1 ML SYRINGE SUBCUT SCH ×3 (05:58→22:11)
[2017-10-19] MEDS: IPRATROPIUM/ALBUTEROL 0.5-2.5 MG/3 ML AMPUL NEB SCH ×3 (08:42→20:03)
[2017-10-19] MEDS: BUDESONIDE NEB 0.5 MG/2 ML AMPUL NEB SCH ×2 (08:43→20:04)
[2017-10-19] MEDS ORDERED: PREDNISONE 20 MG TABLET PO SCH (10:31)
--- NOTE | 2017-10-19 10:32 | PDOC PROGRESS REPORT ---
Subjective Progress Note for:: 10/19/17 Subjective:: Patient admitted with severe sepsis and UTI secondary to infected ureteral stone. Patient continues to improve. She is still weak and will require Rehab Reason For Visit: SEVERE SEPSIS, UTI Physical Exam Vital Signs: Temp Pulse Resp BP Pulse Ox 98.5 F 80 18 149/59 H 92 10/19/17 07:41 10/19/17 08:43 10/19/17 08:43 10/19/17 07:41 10/19/17 08:43 Intake & Output 10/18/17 10/19/17 10/20/17 06:59 06:59 06:59 Intake Total 1400 3866 Output Total 1525 2500 Balance -125 1366 Weight 87.3 kg 87.7 kg General appearance: PRESENT: no acute distress, well-developed Head exam: PRESENT: atraumatic Ear exam: PRESENT: normal external ear exam Neck exam: ABSENT: carotid bruit, JVD, lymphadenopathy, thyromegaly Respiratory exam: PRESENT: clear to auscultation bailey. ABSENT: rales, rhonchi, wheezes Cardiovascular exam: PRESENT: RRR. ABSENT: diastolic murmur, rubs, systolic murmur GI/Abdominal exam: PRESENT: normal bowel sounds, soft. ABSENT: distended, guarding, mass, organolmegaly, rebound, tenderness Rectal exam: PRESENT: deferred Extremities exam: PRESENT: full ROM. ABSENT: calf tenderness, clubbing, pedal edema Neurological exam: PRESENT: alert, awake, oriented to person, oriented to place , oriented to time, oriented to situation, CN II-XII grossly intact. ABSENT: motor sensory deficit Results Laboratory Results: 10/18/17 05:35 10/18/17 05:35 Impressions: Fluoroscopy 10/12/17 00:00 IMPRESSION: IMAGE(S) OBTAINED DURING PROCEDURE. Retrograde Pyelogram 10/12/17 00:00 IMPRESSION: IMAGE(S) OBTAINED DURING PROCEDURE. Limited or Localized CT 10/12/17 18:47 IMPRESSION: 1. Left obstructive uropathy, at least moderate hydronephrosis due to a sizable distal left ureteral stone measuring almost 8 mm. There may be additional tiny distal ureteral stones as well. 2. 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 This may also explain calcifications in the abdominopelvic cavity. Chest X-Ray 10/15/17 06:00 IMPRESSION: Endotracheal tube removed. No focal infiltrates. Stable mild cardiomegaly Assessment & Plan - Time Time Spent with patient: 15-24 minutes Medications reviewed and adjusted accordingly: Yes Anticipated discharge: Acute Rehab Within: within 48 hours - Inpatient Certification Based on my medical assessment, after consideration of the patient's comorbidities, presenting symptoms, or acuity I expect that the services needed warrant INPATIENT care.: Yes Medical Necessity: Risk of Complication if Not Cared For in Hospital - Plan Summary Plan Summary: 1.Sepsis likely related to infected left urolithiasis. Resolved 2. Aspiration pneumonia. Cont PO antibiotics 3. Acute respiratory failure secondary to above 4. Acute renal failure superimposed on chronic kidney disease stage III. - resolved 5. Left ureteral stone status post stent placement. Appreciate urology input. Plan is to follow-up with urology in about 2 weeks. Can dc Toribio once ambulatory 6. Rheumatoid arthritis on chronic steroid with high steroid dose increased to a stress dose. Taper p.o. prednisone. She is on 5mg chronically. 7. Urinary tract infection secondary to providentia. Antibiotics for total 2 weeks 8. Hypernatremic dehydration- encourage PO intake, Dc IVF 9. Hypokalemia and hypomagnesemia- repleted. 10. PT eval, plan is to dc to Rehab hopefully within the next 48 hours or so
[2017-10-19] MEDS: FAMOTIDINE 20 MG TABLET PO SCH ×2 (10:55→17:45)
[2017-10-19] MEDS: MAGNESIUM OXIDE 400 MG TABLET PO SCH ×2 (10:55→17:46)
[2017-10-19] MEDS: SULFAMETHOXAZOLE/TRIMETHOPRIM 800-160 MG TABLET PO SCH ×2 (10:56→17:46)
[2017-10-19] MEDS: ALLOPURINOL 300 MG TABLET PO SCH ×2 (10:56→17:46)
[2017-10-19] MEDS ORDERED: PREDNISONE 5 MG TABLET PO ONE (11:00)
[2017-10-19] MEDS: HYDROXYCHLOROQUINE SULFATE 200 MG TABLET PO SCH (22:07)
[2017-10-20] MEDS: PREGABALIN 75 MG CAPSULE PO SCH ×3 (05:47→22:06)
[2017-10-20] MEDS: HEPARIN SOD (PORCINE) 5,000 UNIT/ML 1 ML SYRINGE SUBCUT SCH ×3 (05:48→22:09)
[2017-10-20 07:18] LABS: HEMATOCRIT 27.2 % (36.0-47.0); MEAN CORPUSCULAR HEMOGLOBIN 31.8 pg (27.0-33.4); MEAN CORPUSCULAR VOLUME 96 fl (80-97); PLATELET COUNT 101 10^3/uL (150-450); RED BLOOD COUNT 2.83 10^6/uL (3.72-5.28); RED CELL DISTRIBUTION WIDTH 15.8 % (11.5-14.0); WHITE BLOOD COUNT 13.1 10^3/uL (4.0-10.5)
[2017-10-20 07:39] LABS: ANION GAP 9 (5-19); BLOOD UREA NITROGEN 24 mg/dL (7-20); CALCIUM 9.4 mg/dL (8.4-10.2); CARBON DIOXIDE 21 mmol/L (22-30); CHLORIDE 113 mmol/L (98-107); GLUCOSE 80 mg/dL (75-110); SODIUM 142.6 mmol/L (137-145)
[2017-10-20 07:43] LABS: POTASSIUM 4.6 mmol/L (3.6-5.0)
[2017-10-20] MEDS: IPRATROPIUM/ALBUTEROL 0.5-2.5 MG/3 ML AMPUL NEB SCH ×3 (08:17→19:59)
[2017-10-20] MEDS: BUDESONIDE NEB 0.5 MG/2 ML AMPUL NEB SCH ×2 (08:18→19:59)
[2017-10-20] MEDS: SULFAMETHOXAZOLE/TRIMETHOPRIM 800-160 MG TABLET PO SCH ×2 (10:34→18:47)
[2017-10-20] MEDS: PREDNISONE 5 MG TABLET PO SCH (10:34)
[2017-10-20] MEDS: MAGNESIUM OXIDE 400 MG TABLET PO SCH ×2 (10:34→18:47)
[2017-10-20] MEDS: FAMOTIDINE 20 MG TABLET PO SCH ×2 (10:34→18:47)
[2017-10-20] MEDS: ALLOPURINOL 300 MG TABLET PO SCH ×2 (10:35→18:48)
--- NOTE | 2017-10-20 12:13 | PDOC PROGRESS REPORT ---
Subjective Progress Note for:: 10/20/17 Subjective:: Patient admitted with severe sepsis and UTI secondary to infected ureteral stone. Patient continues to improve. She is still weak and will require Rehab. Referral has been made to Rehab Will leave Toribio in place for now until she is more ambulatory Reason For Visit: SEVERE SEPSIS, UTI Physical Exam Vital Signs: Temp Pulse Resp BP Pulse Ox 98.9 F 83 16 142/67 H 93 10/20/17 07:34 10/20/17 08:17 10/20/17 08:17 10/20/17 07:34 10/20/17 08:17 Intake & Output 10/19/17 10/20/17 10/21/17 06:59 06:59 06:59 Intake Total 3866 1437 Output Total 2500 3500 Balance 1366 -2063 Weight 87.7 kg 87.3 kg General appearance: PRESENT: no acute distress, well-developed, well-nourished Head exam: PRESENT: atraumatic Eye exam: PRESENT: conjunctival injection Neck exam: PRESENT: carotid bruit Respiratory exam: PRESENT: accessory muscle use Cardiovascular exam: PRESENT: RRR. ABSENT: diastolic murmur, rubs, systolic murmur Pulses: PRESENT: normal carotid pulses GI/Abdominal exam: PRESENT: normal bowel sounds, soft. ABSENT: distended, guarding, mass, organolmegaly, rebound, tenderness Rectal exam: PRESENT: deferred Extremities exam: PRESENT: full ROM. ABSENT: calf tenderness, clubbing, pedal edema Musculoskeletal exam: PRESENT: ambulatory Neurological exam: PRESENT: alert, awake, oriented to person, oriented to place , oriented to time, oriented to situation, CN II-XII grossly intact. ABSENT: motor sensory deficit Results Laboratory Results: 10/20/17 07:04 10/20/17 07:04 10/20/17 10/20/17 07:04 07:04 WBC 13.1 H RBC 2.83 L Hgb 9.0 L Hct 27.2 L MCV 96 MCH 31.8 MCHC 33.0 RDW 15.8 H Plt Count 101 L Sodium 142.6 Potassium 4.6 Chloride 113 H Carbon Dioxide 21 L Anion Gap 9 BUN 24 H Creatinine 1.20 Est GFR ( Amer) 52 L Est GFR (Non-Af Amer) 43 L Glucose 80 Calcium 9.4 Magnesium 1.8 Impressions: Fluoroscopy 10/12/17 00:00 IMPRESSION: IMAGE(S) OBTAINED DURING PROCEDURE. Retrograde Pyelogram 10/12/17 00:00 IMPRESSION: IMAGE(S) OBTAINED DURING PROCEDURE. Limited or Localized CT 10/12/17 18:47 IMPRESSION: 1. Left obstructive uropathy, at least moderate hydronephrosis due to a sizable distal left ureteral stone measuring almost 8 mm. There may be additional tiny distal ureteral stones as well. 2. 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 This may also explain calcifications in the abdominopelvic cavity. Chest X-Ray 10/15/17 06:00 IMPRESSION: Endotracheal tube removed. No focal infiltrates. Stable mild cardiomegaly Assessment & Plan - Time Time Spent with patient: 15-24 minutes Medications reviewed and adjusted accordingly: Yes Anticipated discharge: Acute Rehab Within: within 48 hours - Inpatient Certification Based on my medical assessment, after consideration of the patient's comorbidities, presenting symptoms, or acuity I expect that the services needed warrant INPATIENT care.: Yes Medical Necessity: Risk of Complication if Not Cared For in Hospital - Plan Summary Plan Summary: 1.Sepsis related to infected left urolithiasis. Resolved 2. Aspiration pneumonia. Cont Bactrim. 3. Acute respiratory failure secondary to above- resolved 4. Acute renal failure superimposed on chronic kidney disease stage III. - resolved 5. Left ureteral stone status post stent placement. Appreciate urology input. Plan is to follow-up with urology in about 2 weeks. Can dc Toribio once ambulatory 6. Rheumatoid arthritis on chronic steroid dose now down to home dose of 5mg. 7. Urinary tract infection secondary to providentia. Antibiotics for total 2 weeks 8. Hypernatremic dehydration- encourage PO intake, off IVF 9. Hypokalemia and hypomagnesemia- repleted. 10. PT eval, plan is to dc to Rehab hopefully within the next 48 hours or so once bed available 11. Anemia, chronic but stable secondary to chronic disease
[2017-10-20] MEDS: HYDROXYCHLOROQUINE SULFATE 200 MG TABLET PO SCH (22:07)
[2017-10-21] MEDS: PREGABALIN 75 MG CAPSULE PO SCH ×3 (05:54→22:15)
[2017-10-21] MEDS: HEPARIN SOD (PORCINE) 5,000 UNIT/ML 1 ML SYRINGE SUBCUT SCH ×3 (07:29→22:32)
[2017-10-21] MEDS: BUDESONIDE NEB 0.5 MG/2 ML AMPUL NEB SCH ×2 (08:22→20:13)
[2017-10-21] MEDS: IPRATROPIUM/ALBUTEROL 0.5-2.5 MG/3 ML AMPUL NEB SCH ×3 (08:22→20:13)
[2017-10-21] MEDS: ALLOPURINOL 300 MG TABLET PO SCH ×2 (11:22→18:14)
[2017-10-21] MEDS: SULFAMETHOXAZOLE/TRIMETHOPRIM 800-160 MG TABLET PO SCH ×2 (11:23→18:13)
[2017-10-21] MEDS: PREDNISONE 5 MG TABLET PO SCH (11:24)
[2017-10-21] MEDS: FAMOTIDINE 20 MG TABLET PO SCH ×2 (11:24→18:13)
[2017-10-21] MEDS: MAGNESIUM OXIDE 400 MG TABLET PO SCH ×2 (11:24→18:13)
--- NOTE | 2017-10-21 18:07 | PDOC PROGRESS REPORT ---
Subjective Progress Note for:: 10/21/17 Subjective:: Patient admitted with severe sepsis and UTI secondary to infected ureteral stone. Patient continues to improve. She is still weak and will require Rehab. Await Rehab Will leave Toribio in place for now until she is more ambulatory Reason For Visit: SEVERE SEPSIS, UTI Physical Exam Vital Signs: Temp Pulse Resp BP Pulse Ox 98.0 F 91 16 131/50 H 93 10/21/17 15:47 10/21/17 15:47 10/21/17 15:47 10/21/17 15:47 10/21/17 15:47 Intake & Output 10/20/17 10/21/17 10/22/17 06:59 06:59 06:59 Intake Total 1437 1850 Output Total 3500 3200 Balance -2063 -1350 Weight 87.3 kg 86.2 kg General appearance: PRESENT: no acute distress, well-developed, well-nourished Head exam: PRESENT: atraumatic Ear exam: PRESENT: normal external ear exam Neck exam: PRESENT: carotid bruit Respiratory exam: PRESENT: clear to auscultation bailey. ABSENT: rales, rhonchi, wheezes Cardiovascular exam: PRESENT: RRR. ABSENT: diastolic murmur, rubs, systolic murmur Pulses: PRESENT: normal dorsalis pedis pul GI/Abdominal exam: PRESENT: normal bowel sounds, soft. ABSENT: distended, guarding, mass, organolmegaly, rebound, tenderness Rectal exam: PRESENT: deferred Neurological exam: PRESENT: alert, awake, oriented to person, oriented to place , oriented to time, other - resting tremors Psychiatric exam: PRESENT: appropriate affect, normal mood. ABSENT: homicidal ideation, suicidal ideation Skin exam: PRESENT: dry, intact, warm. ABSENT: cyanosis, rash Results Laboratory Results: 10/20/17 07:04 10/20/17 07:04 Impressions: Fluoroscopy 10/12/17 00:00 IMPRESSION: IMAGE(S) OBTAINED DURING PROCEDURE. Retrograde Pyelogram 10/12/17 00:00 IMPRESSION: IMAGE(S) OBTAINED DURING PROCEDURE. Limited or Localized CT 10/12/17 18:47 IMPRESSION: 1. Left obstructive uropathy, at least moderate hydronephrosis due to a sizable distal left ureteral stone measuring almost 8 mm. There may be additional tiny distal ureteral stones as well. 2. 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 This may also explain calcifications in the abdominopelvic cavity. Chest X-Ray 10/15/17 06:00 IMPRESSION: Endotracheal tube removed. No focal infiltrates. Stable mild cardiomegaly Assessment & Plan - Time Time Spent with patient: 15-24 minutes Medications reviewed and adjusted accordingly: Yes Anticipated discharge: Acute Rehab - Inpatient Certification Based on my medical assessment, after consideration of the patient's comorbidities, presenting symptoms, or acuity I expect that the services needed warrant INPATIENT care.: Yes Medical Necessity: Risk of Complication if Not Cared For in Hospital - Plan Summary Plan Summary: 1.Sepsis related to infected left urolithiasis. Resolved 2. Aspiration pneumonia. Cont Bactrim till 10/25. 3. Acute respiratory failure secondary to above- resolved 4. Acute renal failure superimposed on chronic kidney disease stage III. - resolved 5. Left ureteral stone status post stent placement. Appreciate urology input. Plan is to follow-up with urology in about 2 weeks. Can dc Toribio once ambulatory 6. Rheumatoid arthritis on chronic steroid dose now down to home dose of 5mg. 7. Urinary tract infection secondary to providentia. Antibiotics for total 2 weeks 8. Hypernatremic dehydration- encourage PO intake, REsolved 9. Hypokalemia and hypomagnesemia- repleted. 10. Plan is to dc to Rehab hopefully within the next 24hours or so once bed available 11. Anemia, chronic but stable secondary to chronic disease
[2017-10-21] MEDS: HYDROXYCHLOROQUINE SULFATE 200 MG TABLET PO SCH (22:15)
[2017-10-22 05:44] LABS: HEMATOCRIT 26.4 % (36.0-47.0); HEMOGLOBIN 8.9 g/dL (12.0-15.5); MEAN CORPUSCULAR HEMOGLOBIN 32.5 pg (27.0-33.4); MEAN CORPUSCULAR HGB CONC 33.7 g/dL (32.0-36.0); MEAN CORPUSCULAR VOLUME 97 fl (80-97); PLATELET COUNT 102 10^3/uL (150-450); RED BLOOD COUNT 2.73 10^6/uL (3.72-5.28); RED CELL DISTRIBUTION WIDTH 16.3 % (11.5-14.0); WHITE BLOOD COUNT 10.2 10^3/uL (4.0-10.5)
[2017-10-22 06:00] LABS: ANION GAP 11 (5-19); BLOOD UREA NITROGEN 33 mg/dL (7-20); CALCIUM 9.5 mg/dL (8.4-10.2); CARBON DIOXIDE 23 mmol/L (22-30); CHLORIDE 107 mmol/L (98-107); GLUCOSE 95 mg/dL (75-110); POTASSIUM 4.8 mmol/L (3.6-5.0); SODIUM 140.6 mmol/L (137-145)
[2017-10-22 06:16] LABS: ABSOLUTE LYMPHOCYTES# (MANUAL) 0.8 10^3/uL (0.5-4.7); ABSOLUTE MONOCYTES # (MANUAL) 1.7 10^3/uL (0.1-1.4); ABSOLUTE NEUTROPHILS# (MANUAL) 7.7 10^3/uL (1.7-8.2); BAND NEUTROPHILS % (MANUAL) 2 % (3-5); BASOPHILS % (MANUAL) 0 % (0-2); EOSINOPHILS % (MANUAL) 0 % (0-6); LYMPHOCYTES % (MANUAL) 7 % (13-45); MONOCYTES % (MANUAL) 17 % (3-13); SEGMENTED NEUTROPHILS % (MAN) 72 % (42-78); TOTAL CELLS COUNTED 100
[2017-10-22 06:23] LABS: ANISOCYTOSIS 1+; POLYCHROMASIA SLIGHT
[2017-10-22 06:24] LABS: OVALOCYTES SLIGHT; PLATELET COMMENT DECREASED; PLATELET LARGE PRESENT; POIKILOCYTOSIS SLIGHT; TEAR DROP CELLS SLIGHT
[2017-10-22 06:25] LABS: HYPERSEGMENTED NEUTROPHILS PRESENT; PROMYELOCYTES % (MANUAL) 1 % (0)
[2017-10-22] MEDS: PREGABALIN 75 MG CAPSULE PO SCH ×3 (06:44→22:42)
[2017-10-22] MEDS: HEPARIN SOD (PORCINE) 5,000 UNIT/ML 1 ML SYRINGE SUBCUT SCH ×3 (06:47→22:47)
[2017-10-22] MEDS: BUDESONIDE NEB 0.5 MG/2 ML AMPUL NEB SCH ×2 (08:23→20:30)
[2017-10-22] MEDS: IPRATROPIUM/ALBUTEROL 0.5-2.5 MG/3 ML AMPUL NEB SCH ×3 (08:23→20:30)
[2017-10-22] MEDS: PREDNISONE 5 MG TABLET PO SCH (09:51)
[2017-10-22] MEDS: ALLOPURINOL 300 MG TABLET PO SCH ×2 (09:51→17:23)
[2017-10-22] MEDS: MAGNESIUM OXIDE 400 MG TABLET PO SCH ×2 (09:52→17:23)
[2017-10-22] MEDS: FAMOTIDINE 20 MG TABLET PO SCH ×2 (09:52→17:23)
[2017-10-22] MEDS: SULFAMETHOXAZOLE/TRIMETHOPRIM 800-160 MG TABLET PO SCH ×2 (09:52→22:42)
--- NOTE | 2017-10-22 10:27 | PDOC PROGRESS REPORT ---
Subjective Progress Note for:: 10/22/17 Subjective:: Patient seen with nurse, daughter at bedside patient awake and alert and talkative. Patient admits feeling better denies fever or pain, denies complaints with exception to generalized weakness. No overnight events. Patient requiring a two-person assist for transfer from bed to commode subsequently unable to return to independent setting. Toribio catheter discontinued. Reason For Visit: SEVERE SEPSIS, UTI Physical Exam Vital Signs: Temp Pulse Resp BP Pulse Ox 98.4 F 80 16 128/61 H 95 10/22/17 08:16 10/22/17 08:16 10/22/17 08:16 10/22/17 08:16 10/22/17 08:16 Intake & Output 10/20/17 10/21/17 10/22/17 11:59 11:59 11:59 Intake Total 1437 1850 2215 Output Total 3500 3200 2450 Balance -2063 -1350 -235 Weight 87.3 kg 86.2 kg 85.2 kg General appearance: PRESENT: no acute distress, well-developed, well-nourished Head exam: PRESENT: atraumatic, normocephalic Eye exam: PRESENT: conjunctiva pink, EOMI, PERRLA. ABSENT: scleral icterus Ear exam: PRESENT: normal external ear exam Mouth exam: PRESENT: moist, tongue midline Neck exam: ABSENT: carotid bruit, JVD, lymphadenopathy, thyromegaly Respiratory exam: PRESENT: clear to auscultation bailey. ABSENT: rales, rhonchi, wheezes Cardiovascular exam: PRESENT: RRR. ABSENT: diastolic murmur, rubs, systolic murmur Pulses: PRESENT: normal dorsalis pedis pul Vascular exam: PRESENT: normal capillary refill GI/Abdominal exam: PRESENT: normal bowel sounds, soft. ABSENT: distended, guarding, mass, organolmegaly, rebound, tenderness Rectal exam: PRESENT: deferred Extremities exam: PRESENT: full ROM. ABSENT: calf tenderness, clubbing, pedal edema Neurological exam: PRESENT: alert, awake, oriented to person, oriented to place , oriented to time, oriented to situation, CN II-XII grossly intact. ABSENT: motor sensory deficit Psychiatric exam: PRESENT: appropriate affect, normal mood. ABSENT: homicidal ideation, suicidal ideation Skin exam: PRESENT: dry, intact, warm. ABSENT: cyanosis, rash Results Laboratory Results: 10/22/17 05:05 10/22/17 05:05 10/22/17 10/22/17 05:05 05:05 WBC 10.2 RBC 2.73 L Hgb 8.9 L Hct 26.4 L MCV 97 MCH 32.5 MCHC 33.7 RDW 16.3 H Plt Count 102 L Seg Neutrophils % Not Reportable Lymphocytes % Not Reportable Monocytes % Not Reportable Eosinophils % Not Reportable Basophils % Not Reportable Absolute Neutrophils Not Reportable Absolute Lymphocytes Not Reportable Absolute Monocytes Not Reportable Absolute Eosinophils Not Reportable Absolute Basophils Not Reportable Sodium 140.6 Potassium 4.8 Chloride 107 Carbon Dioxide 23 Anion Gap 11 BUN 33 H Creatinine 1.41 H Est GFR ( Amer) 43 L Est GFR (Non-Af Amer) 36 L Glucose 95 Calcium 9.5 Impressions: Fluoroscopy 10/12/17 00:00 IMPRESSION: IMAGE(S) OBTAINED DURING PROCEDURE. Retrograde Pyelogram 10/12/17 00:00 IMPRESSION: IMAGE(S) OBTAINED DURING PROCEDURE. Limited or Localized CT 10/12/17 18:47 IMPRESSION: 1. Left obstructive uropathy, at least moderate hydronephrosis due to a sizable distal left ureteral stone measuring almost 8 mm. There may be additional tiny distal ureteral stones as well. 2. 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 This may also explain calcifications in the abdominopelvic cavity. Chest X-Ray 10/15/17 06:00 IMPRESSION: Endotracheal tube removed. No focal infiltrates. Stable mild cardiomegaly Assessment & Plan - Diagnosis (1) Debility Is this a current diagnosis for this admission?: Yes Plan: Patient requires significant rehab prior to transfer to independent setting. Consult with rehabilitation pending. Toribio catheter discontinued (2) Acute renal failure superimposed on stage 3 chronic kidney disease Qualifiers: Acute renal failure type: unspecified Qualified Code(s): N17.9 - Acute kidney failure, unspecified; N18.3 - Chronic kidney disease, stage 3 (moderate) ; N18.3 - Chronic kidney disease, stage 3 (moderate) Is this a current diagnosis for this admission?: Yes Plan: Creatinine climbing over the last 4 days. Concern for Bactrim. Will reevaluate dose, hydrate and reevaluate chemistry. (3) Left ureteral stone Is this a current diagnosis for this admission?: Yes Plan: Nephrostomy tubes in place, follow-up with urology in 10-14 days. (4) Sepsis Qualifiers: Sepsis type: sepsis due to unspecified organism Qualified Code(s): A41.9 - Sepsis, unspecified organism Is this a current diagnosis for this admission?: Yes Plan: Result secondary to infected stone urine culture grows 100,000 colony count of Providencia stuartii sensitive to Cefepime, ceftazidime, ciprofloxacin, imipenem Given climbing creatinine will change to Omnicef 300 twice daily 4 days. (5) UTI (urinary tract infection) Qualifiers: Urinary tract infection type: acute pyelonephritis Qualified Code(s): N10 - Acute pyelonephritis Is this a current diagnosis for this admission?: Yes - Time Time Spent with patient: 15-24 minutes - Inpatient Certification Medical Necessity: Need Close Monitoring Due to Risk of Patient Decompensation
[2017-10-22 11:53] LABS: PATH REVIEW PATHOLOGIST REVIEWED
[2017-10-22] MEDS: HYDROXYCHLOROQUINE SULFATE 200 MG TABLET PO SCH (22:42)
[2017-10-23] MEDS: PREGABALIN 75 MG CAPSULE PO SCH ×3 (05:38→21:21)
[2017-10-23] MEDS: HEPARIN SOD (PORCINE) 5,000 UNIT/ML 1 ML SYRINGE SUBCUT SCH ×3 (05:42→21:24)
[2017-10-23] MEDS: BUDESONIDE NEB 0.5 MG/2 ML AMPUL NEB SCH ×2 (08:28→20:14)
[2017-10-23] MEDS: IPRATROPIUM/ALBUTEROL 0.5-2.5 MG/3 ML AMPUL NEB SCH ×3 (08:28→20:14)
[2017-10-23] MEDS: SULFAMETHOXAZOLE/TRIMETHOPRIM 800-160 MG TABLET PO SCH ×2 (09:59→21:21)
[2017-10-23] MEDS: ALLOPURINOL 300 MG TABLET PO SCH ×2 (09:59→17:58)
[2017-10-23] MEDS: PREDNISONE 5 MG TABLET PO SCH (10:00)
[2017-10-23] MEDS: FAMOTIDINE 20 MG TABLET PO SCH ×2 (10:00→17:58)
[2017-10-23] MEDS: MAGNESIUM OXIDE 400 MG TABLET PO SCH ×2 (10:00→17:58)
[2017-10-23] MEDS: HYDROXYCHLOROQUINE SULFATE 200 MG TABLET PO SCH (21:21)
[2017-10-24] MEDS: HEPARIN SOD (PORCINE) 5,000 UNIT/ML 1 ML SYRINGE SUBCUT SCH (05:07)
[2017-10-24] MEDS: PREGABALIN 75 MG CAPSULE PO SCH (07:03)
[2017-10-24 08:03] VITALS: BP 120/44
[2017-10-24] MEDS: IPRATROPIUM/ALBUTEROL 0.5-2.5 MG/3 ML AMPUL NEB SCH (08:45)
[2017-10-24] MEDS: BUDESONIDE NEB 0.5 MG/2 ML AMPUL NEB SCH (08:45)
[2017-10-24] MEDS: SULFAMETHOXAZOLE/TRIMETHOPRIM 800-160 MG TABLET PO SCH (09:31)
[2017-10-24] MEDS: FAMOTIDINE 20 MG TABLET PO SCH (09:31)
[2017-10-24] MEDS: PREDNISONE 5 MG TABLET PO SCH (09:31)
[2017-10-24] MEDS: ALLOPURINOL 300 MG TABLET PO SCH (09:31)
[2017-10-24] MEDS: MAGNESIUM OXIDE 400 MG TABLET PO SCH (09:31)
--- NOTE | 2017-10-24 09:47 | PDOC TRANSFER SUMMARY ---
General - Admit/Disc Date/PCP Admission Date/Primary Care Provider: 10/12/17 21:18 Discharge Date: 10/24/17 - Discharge Diagnosis (1) Hydronephrosis with renal and ureteral calculous obstruction Is this a current diagnosis for this admission?: Yes (2) Acute renal failure superimposed on stage 3 chronic kidney disease Is this a current diagnosis for this admission?: Yes (3) Left ureteral stone Is this a current diagnosis for this admission?: Yes (4) Debility Is this a current diagnosis for this admission?: Yes (5) Septic shock Is this a current diagnosis for this admission?: Yes (6) Acute respiratory failure Is this a current diagnosis for this admission?: Yes (7) Aspiration into airway Is this a current diagnosis for this admission?: Yes (8) UTI (urinary tract infection) Is this a current diagnosis for this admission?: Yes (11) History of herniated intervertebral disc Is this a current diagnosis for this admission?: No - Additional Information Resuscitation Status: Full Code Discharge Diet: Cardiac Discharge Activity: Activity As Tolerated Prescriptions: Allopurinol [Zyloprim 300 mg Tablet] 150 mg PO BID #60 tablet Bisacodyl [Dulcolax 5 mg Tablet] 5 mg PO DAILYP PRN #30 tabec PRN Reason: Budesonide [Pulmicort Neb 0.5 mg/2 ml Ampul] 0.5 mg NEB RTQ12 #60 ampul.neb Diclofenac Sodium [Voltaren] 1 gm TOP .QID #1 Diclofenac Sodium [Voltaren] 1 gm TOP QID #1 gel..gm. Docusate Sodium [Colace 100 mg Capsule] 100 mg PO BIDP PRN #60 capsule PRN Reason: Famotidine [Pepcid 20 mg Tablet] 20 mg PO BID #60 tablet Hydroxychloroquine Sulfate [Plaquenil 200 mg Tablet] 200 mg PO DAILY #30 tablet Ipratropium/Albuterol Sulfate [Duoneb 3 ml Ampul] 3 ml NEB [id number] #60 vial.neb Magnesium Oxide [Mag-Ox 400 mg Tablet] 400 mg PO BID #60 tablet Polyethylene Glycol 3350 [Clearlax] 17 gm PO DAILY #30 powd.pack Prednisone [Deltasone 5 mg Tablet] 5 mg PO DAILY #30 tablet Pregabalin [Lyrica 75 mg Capsule] 75 mg PO Q8 30 Days capsule Sulfamethoxazole/Trimethoprim [Septra-Ds 800-160 mg Tablet] 0.5 tab PO Q12 #8 tablet Home Medications: Allopurinol [Zyloprim 300 mg Tablet] 150 mg PO BID 10/13/17 Gemfibrozil [Lopid] 600 mg PO BID 10/13/17 Omeprazole 20 mg PO DAILY 10/13/17 Prednisone [Deltasone 5 mg Tablet] 5 mg PO DAILY 10/13/17 Pregabalin [Lyrica 75 mg Capsule] 75 mg PO Q8 10/13/17 Allopurinol [Zyloprim 300 mg Tablet] 150 mg PO BID #60 tablet 10/23/17 Bisacodyl [Dulcolax 5 mg Tablet] 5 mg PO DAILYP PRN #30 tabec 10/23/17 Budesonide [Pulmicort Neb 0.5 mg/2 ml Ampul] 0.5 mg NEB RTQ12 #60 ampul.neb Diclofenac Sodium [Voltaren] 1 gm TOP .QID #1 10/23/17 Diclofenac Sodium [Voltaren] 1 gm TOP QID #1 gel..gm. 10/23/17 Docusate Sodium [Colace 100 mg Capsule] 100 mg PO BIDP PRN #60 capsule 10/23/17 Famotidine [Pepcid 20 mg Tablet] 20 mg PO BID #60 tablet 10/23/17 Hydroxychloroquine Sulfate [Plaquenil 200 mg Tablet] 200 mg PO DAILY #30 tablet 10/23/17 Ipratropium/Albuterol Sulfate [Duoneb 3 ml Ampul] 3 ml NEB [id number] #60 vial.neb 10/23/17 Magnesium Oxide [Mag-Ox 400 mg Tablet] 400 mg PO BID #60 tablet 10/23/17 Polyethylene Glycol 3350 [Clearlax] 17 gm PO DAILY #30 powd.pack 10/23/17 Prednisone [Deltasone 5 mg Tablet] 5 mg PO DAILY #30 tablet 10/23/17 Pregabalin [Lyrica 75 mg Capsule] 75 mg PO Q8 30 Days capsule 10/23/17 Sulfamethoxazole/Trimethoprim [Septra-Ds 800-160 mg Tablet] 0.5 tab PO Q12 #8 tablet 10/23/17 History of Present Illness Admission Date/PCP: 03/11/18 21:18 History of Present Illness: JUDY JAMES is a 82 year old female with a history of rheumatoid arthritis, L3-L4 disc herniation, and nephrolithiasis who presented to the hospital with nausea, vomiting, and left flank pain. Hospital Course Hospital Course: In the emergency department her temperature was 98.7. Her heart rate was 114. Respiratory rate was 22. Blood pressure was 166/88. O2 saturation was 96% on room air. Her WBC was 8.7. Hemoglobin was 13.0. Lactic acid was 4.6. An abdominal CT scan showed left obstructive uropathy with hydronephrosis and distal left ureter stone measuring about 8 mm. She received 1 g of ceftriaxone. A urology consultation was obtained, with plans to take her to the operating room on the night of admission. Given her tachycardia, and elevated lactic acid, she was started on broad- spectrum antibiotics. She was also started on IV fluids. On the night of admission she underwent cystoscopy, left retrograde pyelogram, and left ureteral stent placement. Left renal pelvis urine was sent for culture. She had an obstructing 8 mm distal left ureteral stone with proximal hydronephrosis. Purulent drainage from the kidney was obtained after stent placement. She was transferred to the ICU for hemodynamic monitoring and airway management. She may have aspirated in the OR. A pulmonary consultation was obtained. Her lactic acid returned to normal. Because of her long history of steroid use for rheumatoid arthritis, she was also treated with stress dose steroids. Her white count went as high as 60K. Ultimately, her urine culture grew Providencia stuartii, that was sensitive to trimethoprim/sulfamethoxazole. Urology recommended a two-week (total) course of antibiotics. Eventually, she was extubated. Urology recommended that she undergo definitive stone removal when medically stable, but no sooner than 2 weeks. She plans to follow-up closer to home at [facility]. Her Toribio catheter was removed 48 hours prior to discharge. She has had no trouble voiding since. She became significantly deconditioned due to her prolonged illness/hospitalization. As result, she will require rehabilitation before returning to an independent setting. Physical Exam Vital Signs: Temp Pulse Resp BP Pulse Ox 98.7 F 76 16 120/44 L 99 10/24/17 07:17 10/24/17 07:17 10/24/17 07:17 10/24/17 07:17 10/24/17 07:17 Intake & Output 10/23/17 10/24/17 10/25/17 06:59 06:59 06:59 Intake Total 691 1164 Output Total 600 Balance 91 1164 Weight 83.3 kg 81.7 kg General appearance: PRESENT: no acute distress Head exam: PRESENT: atraumatic, normocephalic Eye exam: PRESENT: EOMI, PERRLA Respiratory exam: PRESENT: clear to auscultation bailey. ABSENT: rales, rhonchi, wheezes Cardiovascular exam: PRESENT: RRR. ABSENT: diastolic murmur, rubs, systolic murmur GI/Abdominal exam: PRESENT: normal bowel sounds, soft. ABSENT: distended, guarding, mass, organolmegaly, rebound, tenderness Neurological exam: PRESENT: alert, awake, oriented to person, oriented to place , oriented to time, oriented to situation, CN II-XII grossly intact. ABSENT: motor sensory deficit Psychiatric exam: PRESENT: appropriate affect, normal mood. ABSENT: homicidal ideation, suicidal ideation Skin exam: PRESENT: dry, intact, warm. ABSENT: cyanosis, rash Results Laboratory Results: 10/22/17 05:05 10/22/17 05:05 Impressions: Fluoroscopy 10/12/17 00:00 IMPRESSION: IMAGE(S) OBTAINED DURING PROCEDURE. Retrograde Pyelogram 10/12/17 00:00 IMPRESSION: IMAGE(S) OBTAINED DURING PROCEDURE. Limited or Localized CT 10/12/17 18:47 IMPRESSION: 1. Left obstructive uropathy, at least moderate hydronephrosis due to a sizable distal left ureteral stone measuring almost 8 mm. There may be additional tiny distal ureteral stones as well. 2. 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 This may also explain calcifications in the abdominopelvic cavity. Chest X-Ray 10/15/17 06:00 IMPRESSION: Endotracheal tube removed. No focal infiltrates. Stable mild cardiomegaly Transfer Plan - Disposition Transfer Plan: To: [facility] - Time Spent with Patient Time spent with patient: Greater than 30 Minutes Qualifiers - * PATEINT BEING DISCHARGED WITH ANY OF THE FOLLOWING DIAGNOSIS?: No Plan Time Spent: Greater than 30 Minutes - 40 minutes
--- NOTE | 2017-10-26 17:28 | PDOC PROGRESS REPORT ---
Subjective Progress Note for:: 10/16/17 Subjective:: stable doing well Reason For Visit: SEVERE SEPSIS, UTI Physical Exam Vital Signs: Temp Pulse Resp BP Pulse Ox 98.6 F 85 16 138/55 H 94 10/20/17 19:24 10/20/17 19:59 10/20/17 19:59 10/20/17 19:24 10/20/17 19:59 Intake & Output 10/19/17 10/20/17 10/21/17 06:59 06:59 06:59 Intake Total 3866 1437 1050 Output Total 2500 3500 1200 Balance 1366 -3753 -150 Weight 87.7 kg 87.3 kg General appearance: PRESENT: no acute distress, cooperative, obese Head exam: PRESENT: atraumatic, normocephalic Eye exam: PRESENT: conjunctiva pale, EOMI. ABSENT: nystagmus, scleral icterus Mouth exam: PRESENT: moist, neck supple, tongue midline Neck exam: ABSENT: carotid bruit, JVD, lymphadenopathy, thyromegaly, tracheal deviation, tracheostomy Respiratory exam: PRESENT: decreased breath sounds, prolonged expiratory phas, rales, rhonchi, symmetrical, unlabored. ABSENT: retraction, stridor, tachypnea Cardiovascular exam: PRESENT: RRR, +S1, +S2 Pulses: PRESENT: normal radial pulses GI/Abdominal exam: PRESENT: diminished bowel sounds, soft Extremities exam: ABSENT: clubbing, joint swelling Musculoskeletal exam: ABSENT: deformity, dislocation Neurological exam: PRESENT: awake Skin exam: PRESENT: dry, warm Results Laboratory Results: 10/20/17 07:04 10/20/17 07:04 10/20/17 10/20/17 07:04 07:04 WBC 13.1 H RBC 2.83 L Hgb 9.0 L Hct 27.2 L MCV 96 MCH 31.8 MCHC 33.0 RDW 15.8 H Plt Count 101 L Sodium 142.6 Potassium 4.6 Chloride 113 H Carbon Dioxide 21 L Anion Gap 9 BUN 24 H Creatinine 1.20 Est GFR ( Amer) 52 L Est GFR (Non-Af Amer) 43 L Glucose 80 Calcium 9.4 Magnesium 1.8 Impressions: Fluoroscopy 10/12/17 00:00 IMPRESSION: IMAGE(S) OBTAINED DURING PROCEDURE. Retrograde Pyelogram 10/12/17 00:00 IMPRESSION: IMAGE(S) OBTAINED DURING PROCEDURE. Limited or Localized CT 10/12/17 18:47 IMPRESSION: 1. Left obstructive uropathy, at least moderate hydronephrosis due to a sizable distal left ureteral stone measuring almost 8 mm. There may be additional tiny distal ureteral stones as well. 2. 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 This may also explain calcifications in the abdominopelvic cavity. Chest X-Ray 10/15/17 06:00 IMPRESSION: Endotracheal tube removed. No focal infiltrates. Stable mild cardiomegaly Assessment & Plan - Diagnosis (1) Acute renal failure superimposed on stage 3 chronic kidney disease Qualifiers: Acute renal failure type: unspecified Qualified Code(s): N17.9 - Acute kidney failure, unspecified; N18.3 - Chronic kidney disease, stage 3 (moderate) ; N18.3 - Chronic kidney disease, stage 3 (moderate) Is this a current diagnosis for this admission?: Yes Plan: obstruction relived u out put ok (2) Acute respiratory failure Is this a current diagnosis for this admission?: Yes Plan: doing well on n/c (3) Left ureteral stone Is this a current diagnosis for this admission?: Yes Plan: stent per Urology (4) Sepsis Qualifiers: Sepsis type: sepsis due to unspecified organism Qualified Code(s): A41.9 - Sepsis, unspecified organism Is this a current diagnosis for this admission?: No
--- NOTE | 2017-10-26 17:30 | PDOC PROGRESS REPORT ---
Subjective Progress Note for:: 10/17/17 Subjective:: stable doing well Reason For Visit: SEVERE SEPSIS, UTI Physical Exam Vital Signs: Temp Pulse Resp BP Pulse Ox 98.6 F 85 16 138/55 H 94 10/20/17 19:24 10/20/17 19:59 10/20/17 19:59 10/20/17 19:24 10/20/17 19:59 Intake & Output 10/19/17 10/20/17 10/21/17 06:59 06:59 06:59 Intake Total 3866 1437 1050 Output Total 2500 3500 1200 Balance 1366 -2063 -150 Weight 87.7 kg 87.3 kg General appearance: PRESENT: no acute distress, cooperative, obese Head exam: PRESENT: atraumatic, normocephalic Eye exam: PRESENT: conjunctiva pale, EOMI Mouth exam: PRESENT: dry mucosa, neck supple, tongue midline Neck exam: ABSENT: carotid bruit, JVD, lymphadenopathy, thyromegaly, tracheal deviation, tracheostomy Respiratory exam: PRESENT: decreased breath sounds, prolonged expiratory phas, unlabored. ABSENT: stridor, tachypnea Cardiovascular exam: PRESENT: RRR, +S1, +S2 Pulses: PRESENT: normal radial pulses GI/Abdominal exam: PRESENT: diminished bowel sounds, soft Extremities exam: ABSENT: clubbing, joint swelling Musculoskeletal exam: ABSENT: deformity, dislocation Neurological exam: PRESENT: awake Skin exam: PRESENT: dry, warm Results Laboratory Results: 10/20/17 07:04 10/20/17 07:04 10/20/17 10/20/17 07:04 07:04 WBC 13.1 H RBC 2.83 L Hgb 9.0 L Hct 27.2 L MCV 96 MCH 31.8 MCHC 33.0 RDW 15.8 H Plt Count 101 L Sodium 142.6 Potassium 4.6 Chloride 113 H Carbon Dioxide 21 L Anion Gap 9 BUN 24 H Creatinine 1.20 Est GFR ( Amer) 52 L Est GFR (Non-Af Amer) 43 L Glucose 80 Calcium 9.4 Magnesium 1.8 Impressions: Fluoroscopy 10/12/17 00:00 IMPRESSION: IMAGE(S) OBTAINED DURING PROCEDURE. Retrograde Pyelogram 10/12/17 00:00 IMPRESSION: IMAGE(S) OBTAINED DURING PROCEDURE. Limited or Localized CT 10/12/17 18:47 IMPRESSION: 1. Left obstructive uropathy, at least moderate hydronephrosis due to a sizable distal left ureteral stone measuring almost 8 mm. There may be additional tiny distal ureteral stones as well. 2. 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 This may also explain calcifications in the abdominopelvic cavity. Chest X-Ray 10/15/17 06:00 IMPRESSION: Endotracheal tube removed. No focal infiltrates. Stable mild cardiomegaly Assessment & Plan - Diagnosis (1) Acute renal failure superimposed on stage 3 chronic kidney disease Qualifiers: Acute renal failure type: unspecified Qualified Code(s): N17.9 - Acute kidney failure, unspecified; N18.3 - Chronic kidney disease, stage 3 (moderate) ; N18.3 - Chronic kidney disease, stage 3 (moderate) Is this a current diagnosis for this admission?: Yes Plan: obstruction relived u out put ok (2) Acute respiratory failure Is this a current diagnosis for this admission?: Yes Plan: doing well on n/c (3) Left ureteral stone Is this a current diagnosis for this admission?: Yes Plan: stent per Urology (4) Sepsis Qualifiers: Sepsis type: sepsis due to unspecified organism Qualified Code(s): A41.9 - Sepsis, unspecified organism Is this a current diagnosis for this admission?: No
--- NOTE | 2017-10-26 17:32 | PDOC PROGRESS REPORT ---
Subjective Progress Note for:: 10/20/17 Subjective:: doing well Reason For Visit: SEVERE SEPSIS, UTI Physical Exam Vital Signs: Temp Pulse Resp BP Pulse Ox 98.6 F 85 16 138/55 H 94 10/20/17 19:24 10/20/17 19:59 10/20/17 19:59 10/20/17 19:24 10/20/17 19:59 Intake & Output 10/19/17 10/20/17 10/21/17 06:59 06:59 06:59 Intake Total 3866 1437 1050 Output Total 2500 3500 1200 Balance 1366 -2063 -150 Weight 87.7 kg 87.3 kg General appearance: PRESENT: no acute distress, cooperative, disheveled, obese Head exam: PRESENT: atraumatic, normocephalic Eye exam: PRESENT: conjunctiva pale, EOMI Mouth exam: PRESENT: moist, neck supple, tongue midline Neck exam: ABSENT: carotid bruit, JVD, lymphadenopathy, thyromegaly, tracheal deviation, tracheostomy Respiratory exam: PRESENT: decreased breath sounds, prolonged expiratory phas, rhonchi, symmetrical, unlabored. ABSENT: rales, retraction, stridor, tachypnea Cardiovascular exam: PRESENT: RRR, +S1, +S2 Pulses: PRESENT: normal radial pulses GI/Abdominal exam: PRESENT: diminished bowel sounds, soft Extremities exam: ABSENT: calf tenderness, clubbing, joint swelling Musculoskeletal exam: ABSENT: deformity, dislocation Neurological exam: PRESENT: awake Skin exam: PRESENT: dry, warm Results Laboratory Results: 10/20/17 07:04 10/20/17 07:04 10/20/17 10/20/17 07:04 07:04 WBC 13.1 H RBC 2.83 L Hgb 9.0 L Hct 27.2 L MCV 96 MCH 31.8 MCHC 33.0 RDW 15.8 H Plt Count 101 L Sodium 142.6 Potassium 4.6 Chloride 113 H Carbon Dioxide 21 L Anion Gap 9 BUN 24 H Creatinine 1.20 Est GFR ( Amer) 52 L Est GFR (Non-Af Amer) 43 L Glucose 80 Calcium 9.4 Magnesium 1.8 Impressions: Fluoroscopy 10/12/17 00:00 IMPRESSION: IMAGE(S) OBTAINED DURING PROCEDURE. Retrograde Pyelogram 10/12/17 00:00 IMPRESSION: IMAGE(S) OBTAINED DURING PROCEDURE. Limited or Localized CT 10/12/17 18:47 IMPRESSION: 1. Left obstructive uropathy, at least moderate hydronephrosis due to a sizable distal left ureteral stone measuring almost 8 mm. There may be additional tiny distal ureteral stones as well. 2. 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 This may also explain calcifications in the abdominopelvic cavity. Chest X-Ray 10/15/17 06:00 IMPRESSION: Endotracheal tube removed. No focal infiltrates. Stable mild cardiomegaly Assessment & Plan - Diagnosis (1) Acute renal failure superimposed on stage 3 chronic kidney disease Qualifiers: Acute renal failure type: unspecified Qualified Code(s): N17.9 - Acute kidney failure, unspecified; N18.3 - Chronic kidney disease, stage 3 (moderate) ; N18.3 - Chronic kidney disease, stage 3 (moderate) Is this a current diagnosis for this admission?: Yes Plan: obstruction relived u out put ok (2) Acute respiratory failure Is this a current diagnosis for this admission?: Yes Plan: doing well on n/c (3) Left ureteral stone Is this a current diagnosis for this admission?: Yes Plan: stent per Urology (4) Sepsis Qualifiers: Sepsis type: sepsis due to unspecified organism Qualified Code(s): A41.9 - Sepsis, unspecified organism Is this a current diagnosis for this admission?: No
--- NOTE | 2017-10-26 17:34 | PDOC PROGRESS REPORT ---
Subjective Progress Note for:: 10/21/17 Subjective:: doing well Reason For Visit: SEVERE SEPSIS, UTI Physical Exam Vital Signs: Temp Pulse Resp BP Pulse Ox 98.7 F 76 16 120/44 L 99 10/24/17 07:17 10/24/17 07:17 10/24/17 07:17 10/24/17 07:17 10/24/17 07:17 General appearance: PRESENT: no acute distress, cooperative, disheveled, obese Head exam: PRESENT: atraumatic, normocephalic Eye exam: PRESENT: conjunctiva pale, EOMI Mouth exam: PRESENT: moist, neck supple, tongue midline Neck exam: ABSENT: carotid bruit, JVD, lymphadenopathy, thyromegaly, tracheal deviation, tracheostomy Respiratory exam: PRESENT: decreased breath sounds, prolonged expiratory phas, rales, rhonchi, symmetrical, unlabored. ABSENT: retraction, stridor, tachypnea Cardiovascular exam: PRESENT: RRR, +S1, +S2 Pulses: PRESENT: normal radial pulses GI/Abdominal exam: PRESENT: diminished bowel sounds, soft Extremities exam: ABSENT: clubbing, joint swelling Musculoskeletal exam: ABSENT: deformity, dislocation Neurological exam: PRESENT: awake Skin exam: PRESENT: dry, warm Results Laboratory Results: 10/22/17 05:05 10/22/17 05:05 Impressions: Fluoroscopy 10/12/17 00:00 IMPRESSION: IMAGE(S) OBTAINED DURING PROCEDURE. Retrograde Pyelogram 10/12/17 00:00 IMPRESSION: IMAGE(S) OBTAINED DURING PROCEDURE. Limited or Localized CT 10/12/17 18:47 IMPRESSION: 1. Left obstructive uropathy, at least moderate hydronephrosis due to a sizable distal left ureteral stone measuring almost 8 mm. There may be additional tiny distal ureteral stones as well. 2. 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 This may also explain calcifications in the abdominopelvic cavity. Chest X-Ray 10/15/17 06:00 IMPRESSION: Endotracheal tube removed. No focal infiltrates. Stable mild cardiomegaly Assessment & Plan - Diagnosis (1) Acute renal failure superimposed on stage 3 chronic kidney disease Qualifiers: Acute renal failure type: unspecified Qualified Code(s): N17.9 - Acute kidney failure, unspecified; N18.3 - Chronic kidney disease, stage 3 (moderate) ; N18.3 - Chronic kidney disease, stage 3 (moderate) Is this a current diagnosis for this admission?: Yes Plan: obstruction relived u out put ok (2) Acute respiratory failure Is this a current diagnosis for this admission?: Yes Plan: doing well on n/c (3) Left ureteral stone Is this a current diagnosis for this admission?: Yes Plan: stent per Urology (4) Sepsis Qualifiers: Sepsis type: sepsis due to unspecified organism Qualified Code(s): A41.9 - Sepsis, unspecified organism Is this a current diagnosis for this admission?: No
--- NOTE | 2017-10-26 17:36 | PDOC PROGRESS REPORT ---
Subjective Progress Note for:: 10/22/17 Subjective:: doing well Reason For Visit: SEVERE SEPSIS, UTI Physical Exam Vital Signs: Temp Pulse Resp BP Pulse Ox 98.7 F 76 16 120/44 L 99 10/24/17 07:17 10/24/17 07:17 10/24/17 07:17 10/24/17 07:17 10/24/17 07:17 General appearance: PRESENT: no acute distress, cooperative, disheveled, obese Head exam: PRESENT: atraumatic, normocephalic Eye exam: PRESENT: conjunctiva pale, EOMI Mouth exam: PRESENT: moist, neck supple, tongue midline Neck exam: ABSENT: carotid bruit, JVD, lymphadenopathy, thyromegaly, tracheal deviation, tracheostomy Respiratory exam: PRESENT: decreased breath sounds, prolonged expiratory phas, rhonchi, symmetrical, unlabored, wheezes. ABSENT: retraction, stridor, tachypnea Cardiovascular exam: PRESENT: RRR, +S1, +S2 Pulses: PRESENT: normal radial pulses GI/Abdominal exam: PRESENT: diminished bowel sounds, soft Extremities exam: ABSENT: clubbing, joint swelling Musculoskeletal exam: ABSENT: deformity, dislocation Neurological exam: PRESENT: awake Skin exam: PRESENT: dry, warm Results Laboratory Results: 10/22/17 05:05 10/22/17 05:05 Impressions: Fluoroscopy 10/12/17 00:00 IMPRESSION: IMAGE(S) OBTAINED DURING PROCEDURE. Retrograde Pyelogram 10/12/17 00:00 IMPRESSION: IMAGE(S) OBTAINED DURING PROCEDURE. Limited or Localized CT 10/12/17 18:47 IMPRESSION: 1. Left obstructive uropathy, at least moderate hydronephrosis due to a sizable distal left ureteral stone measuring almost 8 mm. There may be additional tiny distal ureteral stones as well. 2. 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 This may also explain calcifications in the abdominopelvic cavity. Chest X-Ray 10/15/17 06:00 IMPRESSION: Endotracheal tube removed. No focal infiltrates. Stable mild cardiomegaly Assessment & Plan - Diagnosis (1) Acute renal failure superimposed on stage 3 chronic kidney disease Qualifiers: Acute renal failure type: unspecified Qualified Code(s): N17.9 - Acute kidney failure, unspecified; N18.3 - Chronic kidney disease, stage 3 (moderate) ; N18.3 - Chronic kidney disease, stage 3 (moderate) Is this a current diagnosis for this admission?: Yes Plan: obstruction relived u out put ok (2) Acute respiratory failure Is this a current diagnosis for this admission?: Yes (3) Left ureteral stone Is this a current diagnosis for this admission?: Yes Plan: stent per Urology (4) Sepsis Qualifiers: Sepsis type: sepsis due to unspecified organism Qualified Code(s): A41.9 - Sepsis, unspecified organism Is this a current diagnosis for this admission?: No
== END 2017-10-24 10:36 | DRG 871 ==
LOC: ER 15:34 → EH 21:18 → ICU 22:54 → 3W 10-15 15:41
PROVIDERS: ADMIT Internal Medicine Geriatric Medicine; ATTEND Internal Medicine Geriatric Medicine
PROC: 5A1945Z Respiratory Ventilation, 24-96 Consecutive Hours (ICD-10-PCS; 2017-10-12)
PROC: BT1FZZZ Fluoroscopy of Left Kidney, Ureter and Bladder (ICD-10-PCS; 2017-10-12)
PROC: 0BH17EZ Insertion of Endotracheal Airway into Trachea, Via Natural or Artificial Opening (ICD-10-PCS; 2017-10-12)
PROC: 0T778DZ Dilation of Left Ureter with Intraluminal Device, Via Natural or Artificial Opening Endoscopic (ICD-10-PCS; principal; 2017-10-12 21:45)
DX: A41.9 Sepsis, unspecified organism (principal); J95.821 Acute postprocedural respiratory failure; J69.0 Pneumonitis due to inhalation of food and vomit; N17.9 Acute kidney failure, unspecified; N18.4 Chronic kidney disease, stage 4 (severe); R65.21 Severe sepsis with septic shock; J95.89 Other postprocedural complications and disorders of respiratory system, not elsewhere classified; N13.6 Pyonephrosis; N10 Acute pyelonephritis; E87.0 Hyperosmolality and hypernatremia; M06.9 Rheumatoid arthritis, unspecified; I12.9 Hypertensive chronic kidney disease with stage 1 through stage 4 chronic kidney disease, or unspecified chronic kidney disease; Z77.090 Contact with and (suspected) exposure to asbestos; K21.9 Gastro-esophageal reflux disease without esophagitis; M54.16 Radiculopathy, lumbar region; E78.5 Hyperlipidemia, unspecified; E66.9 Obesity, unspecified; M10.9 Gout, unspecified; B96.89 Other specified bacterial agents as the cause of diseases classified elsewhere; E86.0 Dehydration; E87.6 Hypokalemia; E83.42 Hypomagnesemia; Z87.442 Personal history of urinary calculi; Z90.710 Acquired absence of both cervix and uterus; Z79.82 Long term (current) use of aspirin; Z79.899 Other long term (current) drug therapy; Z88.1 Allergy status to other antibiotic agents; Z85.43 Personal history of malignant neoplasm of ovary; Z88.0 Allergy status to penicillin; Z88.8 Allergy status to other drugs, medicaments and biological substances; Z88.6 Allergy status to analgesic agent; Z90.49 Acquired absence of other specified parts of digestive tract; Z92.25 Personal history of immunosuppression therapy
CPT/HCPCS: 00910; 36415; 36600; 71045; 74420; 76380; 80048; 80053; 81001; 82550; 82803; 83605; 83735; 85025; 85027; 85610; 85730; 87040; 87070; 87086; 87088; 87186; 87205; 93005; 93010; 94002; 94003; 94640; 94660; 94799; 96361; 96365; 96375; 99291; C1758; C1769; C2625; G8978-GP; G8979-GP; G8987-GO; G8988-GO; J0330; J0360; J0692; J0696; J1170; J1644; J1720; J2060; J2185; J2405; J2704; J3010; J3370; J3475; J3480; J3490; J7030; J7060; J7120; J7512; J7620